=== PATIENT | female | born 1960 | race Caucasian/White ===

== ENCOUNTER → 2017-09-09 | Outpatient (CLI) | payer BC ==
--- NOTE | 2017-09-10 09:31 | MM ---
Reason for exam: screening (asymptomatic). Last mammogram was performed 2 years and 1 month ago. History: Patient is postmenopausal and is nulliparous. Benign right breast aspiration of the right breast, March 19, 2012. Benign right US cyst aspiration ea add of the right breast, September 10, 2006. Benign right US cyst aspiration of the right breast, September 10, 2006. Benign cyst aspiration of the right breast, 2001. Took hormonal contraceptives for 10 years. Physical Findings: A clinical breast exam by your physician is recommended on an annual basis and results should be correlated with mammographic findings. MG Screening Mammo w CAD Bilateral CC and MLO view(s) were taken. Prior study comparison: August 15, 2015, bilateral MG screening mammo w CAD. June 11, 2014, bilateral MG screening mammo w CAD. The breast tissue is heterogeneously dense. This may lower the sensitivity of mammography. There is chronic nodularity bilaterally. There is no dominant lesion. No significant changes when compared with prior studies. ASSESSMENT: Benign, BI-RAD 2 RECOMMENDATION: Routine screening mammogram of both breasts in 1 year.
== END | disposition home or self-care (01) ==
LOC: RADMAMWWP 07:53
PROVIDERS: ATTEND Family Medicine
DX: Z12.31 Encounter for screening mammogram for malignant neoplasm of breast (principal)
CPT/HCPCS: 77067

== ENCOUNTER → 2018-12-16 | Outpatient (CLI) | payer BC ==
--- NOTE | 2018-12-16 09:22 | CTL ---
EXAMINATION TYPE: CT Low Dose Lung DATE OF EXAM ORDERED: 12/16/2018 HISTORY: 58-year-old female Personal history of tobacco use/personal history of nicotine dependence. Lung cancer screening CT DLP: [address] CTDI: 1.70 mGy Automated exposure control for dose reduction was used. SCREENING VISIT: Baseline COMPARISON: None TECHNIQUE: Low dose computed tomography scan was performed through the chest at 1 mm thick sections a nd reconstructed images in the coronal and sagittal plane. CT DIAGNOSTIC QUALITY: Satisfactory FINDINGS: Heart normal size without pericardial effusion. Aorta normal caliber with conventional arch vessel branching anatomy. Nonenlarged paratracheal lymph nodes measure up to 8 mm. Mildly enlarged precarinal lymph node measur es 1.2 cm. Nonenlarged subcarinal lymph node measures 1.1 cm. Mild bronchial wall thickening and mild centrilobular emphysema. Biapical pleural-parenchymal scarrin g. An elongated 6 x 3 mm left mid lung pulmonary nodule is located along the major fissure, axial image 158. 3 mm subpleural pulmonary nodule lateral left lower lobe axial image 244. No consolidation or pleural effusion. Visualized upper abdomen shows no gross anomaly. Bones: No osseous destructive process. IMPRESSION: 1. BI-RADS 3 - probably benign; a 6 mm pulmonary nodule left mid lung, suspected lymph node along the major fissure. Additional 3 mm left lower lobe pulmonary nodule is presumed benign. 2. Mildly enlarged precarinal lymph node at 1.2 cm. 3. COPD with mild emphysema. RECOMMENDATION: 1. Six-month follow-up low-dose CT chest for reassessment of the probable 6 mm left midlung fissural lymph node. 2. The 6 month follow-up can also be utilized to ensure stability/resolution of the mildly enlarged p recarinal lymph node. 3. Smoking cessation. FOLLOW UP CT CHEST RECOMMENDATION: [address] LUNG RAD: Lung-Rad 3 Probably Benign
--- NOTE | 2018-12-16 13:55 | ECHOS ---
STRESS ECHOCARDIOGRAM INDICATIONS: Chest pain. MEDICATIONS: Levothyroxine, Celexa. BASELINE HEART RATE: 76 BASELINE BLOOD PRESSURE: 136/70 MAXIMUM HEART RATE: 151 MAXIMUM BLOOD PRESSURE: 160/54 85% MPHR: 139 100% MPHR: 164 METS: 9.7 MAXIMUM STAGE REACHED: 3 TOTAL EXERCISE TIME: 8:09 CLINICAL INFORMATION: Baseline EKG revealed normal sinus rhythm with inferolateral ST abnormality of a nonspecific type. Patient walked on standard Siva protocol for 8 minutes 9 seconds achieved a maximal heart rate of 151 beats per minute, developed fatigue and shortness of breath. There was a lot of artifact. She did not have any angina. There was no significant arrhythmia. EKG revealed more prominent inferolateral ST-segment depression without symptoms of angina, but these are considered inconclusive finding given the resting changes to begin with. By EKG criteria, this is an inconclusive stress test with fair exercise capacity. Resting EKG changes were noted making this an inconclusive stress test. Baseline echo images revealed normal wall motion wall thickening of all segments. At peak exercise, there was good augmentation of left ventricular wall motion, wall thickening of all segments suggesting that there is no evidence of stress-induced ischemia on this study. IMPRESSION: 1. Fair exercise capacity with inconclusive stress test by EKG criteria because of resting EKG changes. No symptoms of angina were reported and there was no arrhythmia. 2. Normal stress echocardiogram. MMODL / IJN: [id number] /
== END | disposition home or self-care (01) ==
LOC: RADCTMAIN 08:18
PROVIDERS: ATTEND Family Medicine
DX: Z12.2 Encounter for screening for malignant neoplasm of respiratory organs (principal); R07.9 Chest pain, unspecified; J43.9 Emphysema, unspecified; Z87.891 Personal history of nicotine dependence
CPT/HCPCS: 93351; G0297

== ENCOUNTER → 2018-12-16 | Outpatient (CLI) | payer BC | END | disposition home or self-care (01) | LOC: RADCTMAIN 08:08 | PROVIDERS: ATTEND Family Medicine | DX: Z53.9 Procedure and treatment not carried out, unspecified reason (principal) ==

== ENCOUNTER → 2018-12-18 | Outpatient (CLI) | payer BC ==
--- NOTE | 2018-12-19 12:22 | MM ---
Reason for exam: screening (asymptomatic). Last mammogram was performed 1 year and 3 months ago. History: Patient is postmenopausal and is nulliparous. Benign right breast aspiration of the right breast, March 19, 2012. Benign right US cyst aspiration ea add of the right breast, September 10, 2006. Benign right US cyst aspiration of the right breast, September 10, 2006. Benign cyst aspiration of the right breast, 2001. Took hormonal contraceptives for 10 years. Physical Findings: A clinical breast exam by your physician is recommended on an annual basis and results should be correlated with mammographic findings. MG Screening Mammo w CAD Bilateral CC and MLO view(s) were taken. Prior study comparison: September 09, 2017, bilateral MG screening mammo w CAD. August 15, 2015, bilateral MG screening mammo w CAD. The breast tissue is heterogeneously dense. This may lower the sensitivity of mammography. Focal asymmetry upper outer left breast anteror third position. This finding is changed when compared with previous exams. ASSESSMENT: Incomplete: need additional imaging evaluation, BI-RAD 0 RECOMMENDATION: Special view mammogram of the left breast. If lesion persists on supplemental views, image directed ultrasound is recommended. [facility] will attempt to contact patient to return for supplemental views and ultrasound if indicated.
== END | disposition home or self-care (01) ==
LOC: RADMAMWWP 07:06
PROVIDERS: ATTEND Family Medicine
DX: Z12.31 Encounter for screening mammogram for malignant neoplasm of breast (principal); R92.8 Other abnormal and inconclusive findings on diagnostic imaging of breast
CPT/HCPCS: 77067

== ENCOUNTER → 2018-12-26 | Outpatient (CLI) | payer BC ==
--- NOTE | 2018-12-26 08:28 | MM ---
Reason for exam: additional evaluation requested from abnormal screening. Last mammogram was performed less than 1 month ago. History: Patient is postmenopausal and is nulliparous. Benign right breast aspiration of the right breast, March 19, 2012. Benign right US cyst aspiration ea add of the right breast, September 10, 2006. Benign right US cyst aspiration of the right breast, September 10, 2006. Benign cyst aspiration of the right breast, 2001. Took hormonal contraceptives for 10 years. Physical Findings: Nurse did not find any significant physical abnormalities on exam. MG Work Up Mamm w CAD LT Spot compression CC, spot compression MLO, and ML view(s) were taken of the left breast. Prior study comparison: December 18, 2018, bilateral MG screening mammo w CAD. September 09, 2017, bilateral MG screening mammo w CAD. The breast tissue is heterogeneously dense. This may lower the sensitivity of mammography. There is no discrete abnormality including area of concern. These results were verbally communicated with the patient and result sheet given to the patient on 12/26/18. ASSESSMENT: Negative, BI-RAD 1 RECOMMENDATION: Return to routine screening mammogram schedule for both breasts.
== END | disposition home or self-care (01) ==
LOC: RADMAMWWP 07:23
PROVIDERS: ATTEND Family Medicine
DX: R92.8 Other abnormal and inconclusive findings on diagnostic imaging of breast (principal)
CPT/HCPCS: 77065

== ENCOUNTER → 2019-06-18 | Outpatient (CLI) | payer BC ==
--- NOTE | 2019-06-18 15:53 | CTL ---
EXAMINATION TYPE: CT Low Dose Lung DATE OF EXAM ORDERED: 06/18/2019 HISTORY: Personal history tobacco use. Lung cancer screening CT DLP: 50.[address] CTDI: 1.5 mGy Automated exposure control for dose reduction was used. SCREENING VISIT: Follow-up COMPARISON: 12/16/2018 TECHNIQUE: Low dose computed tomography scan was performed through the chest at 1 mm thick sections a nd reconstructed images in the coronal plane at [address] DIAGNOSTIC QUALITY: Satisfactory FINDINGS: LUNG NODULES: Present, detailed below: There is a 0.4 cm pleural-based nodule in the lateral left lung base. Series 4 image 222. This is sta ble from comparison. There is thickening to the bilateral lung apices which was present previously and appears stable. LUNGS: COPD: Severity: None Fibrosis: Severity: None Lymph nodes: None Other findings: None RIGHT PLEURAL SPACE: Effusion: None Calcification: None Thickening: None Pneumothorax: None LEFT PLEURAL SPACE: Effusion: None Calcification: None Thickening: None Pneumothorax: None HEART: Heart Size: Normal Coronary calcification: None Pericardial effusion: None There is an enlarged lymph node measuring 1.2 cm in the pretracheal space at the level of the benitez. OTHER FINDINGS: Upper abdomen: Normal Bony thorax: Normal Supraclavicular region: Normal Other: Ascending thoracic aorta at the level the main pulmonary artery measures 3.5 cm. The main pul monary artery at the bifurcation measures 2.7 cm. IMPRESSION: 1. No suspicious acute lung masses. 2. Enlarged pretracheal lymph node present previously and stable FOLLOW UP CT CHEST RECOMMENDATION: Follow up screening CT chest per screening protocol CT LUNG RAD: 1
== END | disposition home or self-care (01) ==
LOC: RADCTMAIN 11:08
PROVIDERS: ATTEND Family Medicine
DX: R59.9 Enlarged lymph nodes, unspecified (principal); Z87.891 Personal history of nicotine dependence

== ENCOUNTER 2020-03-11 12:35 | Day surgery (SDC) | payer BC ==
[2020-03-10 10:16] VITALS: BMI 20.2
[~2020-03-11 12:35] MED LIST: LIDOCAINE 1% (10MG/ML) FOR IV START INTRADERMA PRN
[2020-03-11 13:16] VITALS: RESP 16; TEMP 98.9
[2020-03-11] MEDS: LACTATED RINGERS 1,000 ML IV SCH ×2 (13:26→13:43)
[2020-03-11] MEDS ORDERED: LIDOCAINE 1% INJ 10MG/ML (20 ML MDV) ONE (13:45)
[2020-03-11] MEDS ORDERED: PROPOFOL 10 MG/ML 20 ML VIAL IV ONE (13:45)
--- NOTE | 2020-03-11 13:59 | P.PCN ---
Date of Procedure: 03/11/20 Procedure(s) Performed: BRIEF HISTORY: Patient is a 60-year-old white female scheduled for an upper endoscopy as a part of evaluation of intermittent dysphagia for the last 4 weeks' duration. She was started on Prilosec 20 mg daily with no relief in her symptoms. PROCEDURE PERFORMED: Esophagogastroduodenoscopy with biopsy. PREOPERATIVE DIAGNOSIS: Atypical chest pain of 4 weeks' duration. IV sedation per anesthesia. PROCEDURE: After informed consent was obtained, the patient was brought into the endoscopy unit. IV sedation was administered by Anesthesia under continuous monitoring. Initially the Olympus GIF-140 video endoscope was inserted into the mouth. Esophagus intubated without any difficulty. It was gradually advanced into the stomach and duodenum and carefully examined. The bulb and the second part of the duodenum appeared normal. The scope at this time was withdrawn to the stomach, adequately insufflated with air, and upon careful examination, mucosa of the antrum had mild patchy areas of erythema and biopsies were done from this area. The body, cardia and the fundus appeared normal. The scope was then withdrawn into the esophagus. The GE junction was located at 39 cm from the incisors. The esophagus appeared normal. There were no erosions or ulcerations seen, biopsies were done from the distal esophagus and the patient tolerated the procedure well. IMPRESSION: 1. Mild antral gastritis. 2. Normal-appearing esophagus with no evidence of esophagitis. RECOMMENDATIONS: The findings of this examination were discussed with the patient as well as a family. She was advised to follow up the biopsy results. in the meantime I suggested that she increase omeprazole to 20 mg twice daily for 8 weeks. If she still has persistent symptoms she can follow up in office for further evaluation.
[2020-03-11 14:27] VITALS: BP 135/82; PULSE 85
== END 2020-03-11 14:34 | disposition home or self-care (01) ==
LOC: ORWHC2ENDO 12:35
PROVIDERS: ATTEND Internal Medicine Gastroenterology
DX: K29.50 Unspecified chronic gastritis without bleeding (principal); K21.9 Gastro-esophageal reflux disease without esophagitis; J45.909 Unspecified asthma, uncomplicated; F17.210 Nicotine dependence, cigarettes, uncomplicated; Z88.5 Allergy status to narcotic agent; Z88.1 Allergy status to other antibiotic agents; Z79.890 Hormone replacement therapy; Z79.899 Other long term (current) drug therapy
CPT/HCPCS: 88305; 43239; J2001; J2704

== ENCOUNTER 2020-03-31 11:42 | Observation (INO) | payer BC ==
[2020-03-31] MEDS ORDERED: SODIUM CHLORIDE 0.9% 1,000 ML IV STA ×2 (12:02)
[2020-03-31] MEDS ORDERED: ONDANSETRON 4 MG/2 ML VIAL IVP STA (12:02)
[2020-03-31] MEDS ORDERED: PANTOPRAZOLE 40 MG/10 ML VIAL IVP STA (12:03)
--- NOTE | 2020-03-31 12:17 | ED ---
General Adult HPI - General Chief complaint: Nausea/Vomiting/Diarrhea Stated complaint: NAUSEA Time Seen by Provider: 03/31/20 11:52 Source: patient, RN notes reviewed, old records reviewed Mode of arrival: ambulatory Limitations: no limitations - History of Present Illness Initial comments: Patient is a 52-year-old female who presents for intermittent today with greater than 3 months of nausea vomiting epigastric abdominal pain. Patient reports that she is seen by GI doctor and was told she had some mild gastritis is placed on Protonix. She states she has persistent nausea. She states that the continued pain she followed up with GI and had an MRI this week of her abdomen which is indeterminate. She states that she has mainly epigastric pain with radiation towards her back. She states that sometimes it causes excess mucus and phlegm when she vomits. She denies any shortness of breath. She states that she's had no fevers or chills during this time. She reports that she is scheduled for upcoming HIDA scan. - Related Data Home Medications Medication Instructions Recorded Confirmed Citalopram Hydrobromide 20 mg PO DAILY 07/01/14 03/31/20 [Citalopram HBr] Levothyroxine Sodium [Synthroid] 112 mcg PO DAILY 07/01/14 03/31/20 Albuterol Sulfate [Albuterol 2 puff PO Q6H PRN 03/10/20 03/31/20 Sulfate Hfa] Omeprazole 20 mg PO DAILY 03/10/20 03/31/20 Allergies Allergy/AdvReac Type Severity Reaction Status Date / Time codeine AdvReac MIGRAINES Verified 03/31/20 13:51 erythromycin base AdvReac Nausea & Verified 03/31/20 13:51 [Erythromycin Base] Vomiting, ABD. PAIN Review of Systems ROS Statement: Those systems with pertinent positive or pertinent negative responses have been documented in the HPI. ROS Other: All systems not noted in ROS Statement are negative. Past Medical History Past Medical History: Asthma, GERD/Reflux, Thyroid Disorder Additional Past Medical History / Comment(s): EPIGASTRIC PAIN History of Any Multi-Drug Resistant Organisms: None Reported Past Surgical History: Tonsillectomy Additional Past Surgical History / Comment(s): VOCAL CORD NODULE REMOVED. COLONOSCOPY. BILAT CATARACT REMOVAL WITH LENS IMPLANT Past Anesthesia/Blood Transfusion Reactions: No Reported Reaction Past Psychological History: Depression Smoking Status: Current every day smoker Past Alcohol Use History: Occasional Past Drug Use History: None Reported - Past Family History Mother Family Medical History: Cancer Brother(s) Family Medical History: Cancer General Exam - General Exam Comments Initial Comments: 60-year-old female. No significant distress. Limitations: no limitations General appearance: alert, in no apparent distress Head exam: Present: atraumatic, normocephalic, normal inspection Eye exam: Present: normal appearance, PERRL, EOMI. Absent: scleral icterus, conjunctival injection, periorbital swelling ENT exam: Present: normal exam, mucous membranes moist Neck exam: Present: normal inspection. Absent: tenderness, meningismus, lymphadenopathy Respiratory exam: Present: normal lung sounds bilaterally. Absent: respiratory distress, wheezes, rales, rhonchi, stridor Cardiovascular Exam: Present: regular rate, normal rhythm, normal heart sounds. Absent: systolic murmur, diastolic murmur, rubs, gallop, clicks GI/Abdominal exam: Present: soft, tenderness (RUQ tendernes), normal bowel sounds. Absent: distended, guarding, rebound, rigid Extremities exam: Present: normal inspection, full ROM, normal capillary refill. Absent: tenderness, pedal edema, joint swelling, calf tenderness Back exam: Present: normal inspection Neurological exam: Present: alert, oriented X3, CN II-XII intact Psychiatric exam: Present: normal affect, normal mood Skin exam: Present: warm, dry, intact, normal color. Absent: rash Course Vital Signs 03/31/20 03/31/20 03/31/20 11:47 11:50 12:50 Temperature 98.3 F Pulse Rate 104 H 83 Respiratory 20 18 18 Rate Blood Pressure 119/79 133/75 O2 Sat by Pulse 99 98 Oximetry 03/31/20 13:50 Temperature Pulse Rate 83 Respiratory 18 Rate Blood Pressure 129/71 O2 Sat by Pulse 98 Oximetry Medical Decision Making - Medical Decision Making 52-year-old female presents returns today with weeks of nausea and vomiting. He complains of upper abdominal and right upper quadrant abdominal pain. She's been evaluated extensively with GI doctor did have an MRI of her abdomen. She reports there was some abnormalities on the gallbladder which may be causing a dilated common bile duct. Patient was given IV fluids labwork obtained today. She just appears generally weak. On exam she did have some mild right-sided tenderness. Labs reviewed to the relatively unremarkable. Ultrasound today shows evidence of a dilated common bile duct but no evidence of obstructing stones. No signs of acute cholecystitis. On previous MRI at [facility] suggested follow-up with MRCP or ERCP. She states she's not had this done at this time. I did offer the Patient to be discharged home without medica tion or possible admission. States she doesn't feel well to be discharged home and preferred to have further answers at this time. Discussed the case with Dr. Morales discussed case with Dr. Barry has not. Patient was admitted with consult to GI for possible ERCP for further testing on this dilated common bile duct. - Lab Data Result diagrams: 03/31/20 12:15 03/31/20 12:15 Lab Results 03/31/20 03/31/20 03/31/20 Range/Units 12:15 12:15 12:15 WBC 7.4 (3.8-10.6) k/uL RBC 4.65 (3.80-5.40) m/uL Hgb 13.3 (11.4-16.0) gm/dL Hct 41.2 (34.0-46.0) % MCV 88.5 (80.0-100.0) fL MCH 28.6 (25.0-35.0) pg MCHC 32.3 (31.0-37.0) g/dL RDW 12.3 (11.5-15.5) % Plt Count 323 (150-450) k/uL Neutrophils % 70 % Lymphocytes % 21 % Monocytes % 4 % Eosinophils % 1 % Basophils % 1 % Neutrophils # 5.2 (1.3-7.7) k/uL Lymphocytes # 1.5 (1.0-4.8) k/uL Monocytes # 0.3 (0-1.0) k/uL Eosinophils # 0.1 (0-0.7) k/uL Basophils # 0.1 (0-0.2) k/uL Sodium 133 L (137-145) mmol/L Potassium 4.7 (3.5-5.1) mmol/L Chloride 96 L (98-107) mmol/L Carbon Dioxide 27 (22-30) mmol/L Anion Gap 10 mmol/L BUN 13 (7-17) mg/dL Creatinine 0.62 (0.52-1.04) mg/dL Est GFR (CKD-EPI)AfAm >90 (>60 ml/min/1.73 sqM) Est GFR (CKD-EPI)NonAf >90 (>60 ml/min/1.73 sqM) Glucose 99 (74-99) mg/dL Plasma Lactic Acid Robert 1.3 (0.7-2.0) mmol/L Calcium 10.2 (8.4-10.2) mg/dL Magnesium 1.9 (1.6-2.3) mg/dL Total Bilirubin 0.8 (0.2-1.3) mg/dL AST 36 (14-36) U/L ALT 13 (4-34) U/L Alkaline Phosphatase 82 (38-126) U/L Total Protein 8.0 (6.3-8.2) g/dL Albumin 4.5 (3.5-5.0) g/dL Amylase 65 (30-110) U/L Lipase 115 (23-300) U/L Urine Color Urine Appearance (Clear) Urine pH (5.0-8.0) Ur Specific Crete (1.001-1.035) Urine Protein (Negative) Urine Glucose (UA) (Negative) Urine Ketones (Negative) Urine Blood (Negative) Urine Nitrite (Negative) Urine Bilirubin (Negative) Urine Urobilinogen (<2.0) mg/dL Ur Leukocyte Esterase (Negative) Urine RBC (0-5) /hpf Urine WBC (0-5) /hpf Ur Squamous Epith Cells (0-4) /hpf Urine Bacteria (None) /hpf Hyaline Casts (0-2) /lpf Urine Mucus (None) /hpf 03/31/20 Range/Units 12:28 WBC (3.8-10.6) k/uL RBC (3.80-5.40) m/uL Hgb (11.4-16.0) gm/dL Hct (34.0-46.0) % MCV (80.0-100.0) fL MCH (25.0-35.0) pg MCHC (31.0-37.0) g/dL RDW (11.5-15.5) % Plt Count (150-450) k/uL Neutrophils % % Lymphocytes % % Monocytes % % Eosinophils % % Basophils % % Neutrophils # (1.3-7.7) k/uL Lymphocytes # (1.0-4.8) k/uL Monocytes # (0-1.0) k/uL Eosinophils # (0-0.7) k/uL Basophils # (0-0.2) k/uL Sodium (137-145) mmol/L Potassium (3.5-5.1) mmol/L Chloride (98-107) mmol/L Carbon Dioxide (22-30) mmol/L Anion Gap mmol/L BUN (7-17) mg/dL Creatinine (0.52-1.04) mg/dL Est GFR (CKD-EPI)AfAm (>60 ml/min/1.73 sqM) Est GFR (CKD-EPI)NonAf (>60 ml/min/1.73 sqM) Glucose (74-99) mg/dL Plasma Lactic Acid Robert (0.7-2.0) mmol/L Calcium (8.4-10.2) mg/dL Magnesium (1.6-2.3) mg/dL Total Bilirubin (0.2-1.3) mg/dL AST (14-36) U/L ALT (4-34) U/L Alkaline Phosphatase (38-126) U/L Total Protein (6.3-8.2) g/dL Albumin (3.5-5.0) g/dL Amylase (30-110) U/L Lipase (23-300) U/L Urine Color Yellow Urine Appearance Cloudy H (Clear) Urine pH 6.0 (5.0-8.0) Ur Specific Crete 1.018 (1.001-1.035) Urine Protein Trace H (Negative) Urine Glucose (UA) Negative (Negative) Urine Ketones Negative (Negative) Urine Blood Negative (Negative) Urine Nitrite Negative (Negative) Urine Bilirubin Negative (Negative) Urine Urobilinogen <2.0 (<2.0) mg/dL Ur Leukocyte Esterase Negative (Negative) Urine RBC 1 (0-5) /hpf Urine WBC 2 (0-5) /hpf Ur Squamous Epith Cells 5 H (0-4) /hpf Urine Bacteria Rare H (None) /hpf Hyaline Casts 43 H (0-2) /lpf Urine Mucus Many H (None) /hpf - Radiology Data Radiology results: report reviewed Ultrasound shows no shadowing mobile gallstones or ultrasound evidence for acute cholecystitis. There is no significant intrahepatic biliary dilation. Disposition Clinical Impression: Nausea & vomiting, Dilated cbd, acquired Disposition: ADMITTED IP TO THIS HOSP Condition: Stable Is patient prescribed a controlled substance at d/c from ED?: No Referrals: Malgorzata Mcmahan DO [Primary Care Provider] - 1-2 days Time of Disposition: 14:29
[2020-03-31 12:35] LABS: Basophils # (A) 0.1 k/uL (0-0.2); Basophils % (A) 1 %; Eosinophils # (A) 0.1 k/uL (0-0.7); Eosinophils % (A) 1 %; HCT 41.2 % (34.0-46.0); HGB 13.3 gm/dL (11.4-16.0); Lymphocytes # (A) 1.5 k/uL (1.0-4.8); Lymphocytes % (A) 21 %; MCH 28.6 pg (25.0-35.0); MCHC 32.3 g/dL (31.0-37.0); MCV 88.5 fL (80.0-100.0); Mean Platelet Volume 7.8; Monocytes # (A) 0.3 k/uL (0-1.0); Monocytes % (A) 4 %; Neutrophils # (A) 5.2 k/uL (1.3-7.7); Neutrophils % (A) 70 %; Platelet Count 323 k/uL (150-450); RBC 4.65 m/uL (3.80-5.40); RDW 12.3 % (11.5-15.5); WBC 7.4 k/uL (3.8-10.6)
[2020-03-31 12:45] LABS: ALT 13 U/L (4-34); AST 36 U/L (14-36); African American GFR (CKD) >90 (>60 ml/min/1.73 sqM); Albumin 4.5 g/dL (3.5-5.0); Alkaline Phosphatase 82 U/L (38-126); Amylase 65 U/L (30-110); Anion Gap 10 mmol/L; Blood Urea Nitrogen 13 mg/dL (7-17); Calcium 10.2 mg/dL (8.4-10.2); Carbon Dioxide 27 mmol/L (22-30); Chloride 96 mmol/L (98-107); Glucose 99 mg/dL (74-99); Lipase 115 U/L (23-300); Magnesium 1.9 mg/dL (1.6-2.3); Non-African American GFR(CKD) >90 (>60 ml/min/1.73 sqM); Potassium 4.7 mmol/L (3.5-5.1); Sodium 133 mmol/L (137-145); Total Bilirubin 0.8 mg/dL (0.2-1.3)
[2020-03-31 12:49] LABS: Appearance,Urine Cloudy (Clear); Bacteria,Urine Rare /hpf; Bilirubin,Urine Negative (Negative); Blood,Urine Negative (Negative); Color,Urine Yellow; Glucose,Urine (UA) Negative (Negative); Hyaline Casts,Urine 43 /lpf (0-2); Ketones,Urine Negative (Negative); Leukocyte Esterase,Urine Negative (Negative); Mucus,Urine Many /hpf; Nitrite,Urine Negative (Negative); Protein,Urine Trace (Negative); RBC,Urine 1 /hpf (0-5); Specific Gravity,Urine 1.018 (1.001-1.035); Squamous Epithelial Cell,Urine 5 /hpf (0-4); Urobilinogen,Urine <2.0 mg/dL (<2.0); WBC,Urine 2 /hpf (0-5)
--- NOTE | 2020-03-31 13:27 | US ---
EXAMINATION TYPE: US gallbladder DATE OF EXAM: 03/31/2020 COMPARISON: NONE CLINICAL HISTORY: epigastric, rUQ pain. Pain, N&V EXAM MEASUREMENTS: Liver Length: 17.4 cm Gallbladder Wall: 0.2 cm CBD: 0.9 cm Right Kidney: 10.5 x 4.8 x 3.9 cm Pancreas: wnl Liver: wnl Gallbladder: Slightly contracted, adenomyomatosis anterior wall Evidence for sonographic Velasco's sign: No CBD: Dilated Right Kidney: wnl Focus of hyper cholesterolosis with ringdown artifact. No intraluminal gallstones. Mild extra hepatic biliary dilatation. No significant intrahepatic biliary dilatation. Slightly heterogeneous liver. IMPRESSION: No shadowing mobile gallstones or ultrasound evidence for acute cholecystitis.
[2020-03-31] MEDS ORDERED: IBUPROFEN 400 MG TAB PO PRN (14:29)
[2020-03-31] MEDS ORDERED: ONDANSETRON 4 MG/2 ML VIAL IVP PRN (14:29)
[2020-03-31] MEDS ORDERED: KETOROLAC 30 MG/ML 1 ML VIAL IVP PRN (14:29)
[2020-03-31] MEDS ORDERED: NALOXONE 0.4 MG/ML 1 ML VIAL IV PRN (14:29)
[2020-03-31] MEDS ORDERED: MORPHINE SULFATE 4 MG/ML SYRINGE IV PRN (14:29)
[2020-03-31] MEDS: SODIUM CHLORIDE 0.9% 1,000 ML IV SCH ×2 (15:01→23:41)
--- NOTE | 2020-03-31 16:00 | P.HPIM ---
History of Present Illness 52-year-old female who presents for intermittent today with greater than 3 months of nausea vomiting epigastric abdominal pain. Patient reports that she is seen by GI doctor and was told she had some mild gastritis is placed on Prot kassi. She states she has persistent nausea. She states that the continued pain she followed up with GI and had an MRI this week of her abdomen which is indeterminate. She states that she has mainly epigastric pain with radiation towards her back. She states that sometimes it causes excess mucus and phlegm when she vomits. She denies any shortness of breath. She states that she's had no fevers or chills during this time. patient does have history of hiatal hernia. Patient had an ultrasound of the abdomen did which did not show gallstones or cholelithiasis. Patient was a valid by gastroenterology and they ordered a HIDA Scan.and did lose significant weight since last 3 weeks because of nausea vomiting and able to tolerate Review of Systems REVIEW OF SYSTEMS: CONSTITUTIONAL: No fever, no malaise, no fatigue. HEENT: No recent visual problems or hearing problems. Denied any sore throat. CARDIOVASCULAR: No chest pain, orthopnea, PND, no palpitations, no syncope. PULMONARY: No shortness of breath, no cough, no hemoptysis. GASTROINTESTINAL: as mentioned in HPI NEUROLOGICAL: No headaches, no weakness, no numbness. HEMATOLOGICAL: Denies any bleeding or petechiae. GENITOURINARY: Denies any burning micturition, frequency, or urgency. MUSCULOSKELETAL/RHEUMATOLOGICAL: Denies any joint pain, swelling, or any muscle pain. ENDOCRINE: Denies any polyuria or polydipsia. The rest of the 14-point review of systems is negative. Past Medical History Past Medical History: Asthma, GERD/Reflux, Thyroid Disorder Additional Past Medical History / Comment(s): EPIGASTRIC PAIN History of Any Multi-Drug Resistant Organisms: None Reported Past Surgical History: Tonsillectomy Additional Past Surgical History / Comment(s): VOCAL CORD NODULE REMOVED. COLONOSCOPY. BILAT CATARACT REMOVAL WITH LENS IMPLANT Past Anesthesia/Blood Transfusion Reactions: No Reported Reaction Past Psychological History: Depression Smoking Status: Current every day smoker Past Alcohol Use History: Occasional Additional Past Alcohol Use History / Comment(s): < 1PPD SINCE AGE 20-TRYING TO QUIT Past Drug Use History: None Reported - Past Family History Mother Family Medical History: Cancer Brother(s) Family Medical History: Cancer Medications and Allergies Home Medications Medication Instructions Recorded Confirmed Type Citalopram Hydrobromide 20 mg PO DAILY 07/01/14 03/31/20 History [Citalopram HBr] Levothyroxine Sodium [Synthroid] 112 mcg PO DAILY 07/01/14 03/31/20 History Albuterol Sulfate [Albuterol 2 puff PO Q6H PRN 03/10/20 03/31/20 History Sulfate Hfa] Omeprazole 20 mg PO DAILY 03/10/20 03/31/20 History Allergies Allergy/AdvReac Type Severity Reaction Status Date / Time codeine AdvReac MIGRAINES Verified 03/31/20 13:51 erythromycin base AdvReac Nausea & Verified 03/31/20 13:51 [Erythromycin Base] Vomiting, ABD. PAIN Physical Exam Vitals: Vital Signs Temp Pulse Pulse Resp BP BP Pulse Ox 03/31/20 14:44 98.4 F 82 16 138/82 98 03/31/20 14:41 97.7 F 86 12 136/82 98 03/31/20 13:50 83 18 129/71 98 03/31/20 12:50 83 18 133/75 98 03/31/20 11:50 18 03/31/20 11:47 98.3 F 104 H 20 119/79 99 Intake and Output 03/31/20 03/31/20 03/31/20 06:59 14:59 22:59 Other: Voiding Method Toilet Weight 54.431 kg PHYSICAL EXAMINATION: GENERAL: The patient is alert and oriented x3, not in any acute distress. Well developed, well nourished. HEENT: Pupils are round and equally reacting to light. EOMI. No scleral icterus. No conjunctival pallor. Normocephalic, atraumatic. No pharyngeal erythema. No thyromegaly. CARDIOVASCULAR: S1 and S2 present. No murmurs, rubs, or gallops. PULMONARY: Chest is clear to auscultation, no wheezing or crackles. ABDOMEN: Soft, nontender, nondistended, normoactive bowel sounds. No palpable organomegaly. MUSCULOSKELETAL: No joint swelling or deformity. EXTREMITIES: No cyanosis, clubbing, or pedal edema. NEUROLOGICAL: Gross neurological examination did not reveal any focal deficits. SKIN: No rashes. Results CBC & Chem 7: 08/06/20 12:15 03/31/20 12:15 Labs: Abnormal Lab Results - Last 24 Hours (Table) 03/31/20 03/31/20 Range/Units 12:15 12:28 Sodium 133 L (137-145) mmol/L Chloride 96 L (98-107) mmol/L Urine Appearance Cloudy H (Clear) Urine Protein Trace H (Negative) Ur Squamous Epith Cells 5 H (0-4) /hpf Urine Bacteria Rare H (None) /hpf Hyaline Casts 43 H (0-2) /lpf Urine Mucus Many H (None) /hpf Thrombosis Risk Factor Assmnt - Choose All That Apply Each Factor Represents 1 point: Age 41-60 years Thrombosis Risk Factor Assessment Total Risk Factor Score: 1 Thrombosis Risk Factor Assessment Level: Low Risk Assessment and Plan Plan: -abdominal pain, nausea vomiting: It appears to be gastritis patient is already on Protonix at home patient Protonix will be changed to twice a day and the simethicone will be added we will rule out any gallbladder disease with a HIDA scan gastroenterology evaluated the patient.patient had is having these issues as an outpatient and patient underwentextensive evaluation by gastro-oncology as an outpatient as well. Patient is having these symptoms since early January -asthma without any acute exacerbation patient does smoke nicotine cessation counseling was provided. Patient is trying to completely cut down smoking -Gases patient reflux disease -Hypothyroidism
[2020-03-31] MEDS: ACETAMINOPHEN TAB 325 MG TAB PO PRN ×2 (16:28→21:42)
[2020-03-31] MEDS: SIMETHICONE 40 MG/0.6 ML DROPS 2,000 MG/30 ML BOTTLE PO SCH ×2 (17:06→21:43)
--- NOTE | 2020-03-31 21:43 | CONS ---
CONSULTATION DATE OF SERVICE: March 31, 2020. REQUESTING PHYSICIAN: Dr. Mcmahan. REASON FOR CONSULTATION: Epigastric pain, nausea and vomiting of 3 months duration. HISTORY OF PRESENT ILLNESS: The patient is a 60-year-old pleasant white female who was admitted to the hospital because of persistent epigastric pain associated with nausea, vomiting for the last 3 months' duration. She was seen in our office by my PA Lily Robertson. She had an upper endoscopy done 3 weeks ago that showed mild gastritis and small hiatal hernia. Biopsies showed reflux esophagitis. She was treated with Prilosec on outpatient basis with some improvement in the epigastric pain, but she continues to have persistent nausea, vomiting, and hence came to the emergency room and admitted for further evaluation. She was scheduled for an MRI of the abdomen 2 days ago at [facility], results of which are not available at the time of this dictation. She thinks she lost about 15 pounds since the onset of these symptoms. She reports any significant change in her bowel habits. She did have ultrasound of the gallbladder done that was unremarkable. PAST MEDICAL HISTORY: Significant for GERD, hypothyroidism, anxiety, depression, and asthma. MEDICATIONS: At home, omeprazole, Synthroid, citalopram, and albuterol. ALLERGIES: CODEINE and ERYTHROMYCIN. PAST SURGICAL HISTORY: Recent upper endoscopy 3 weeks ago, tonsillectomy, bilateral cataract surgery. Nuchal cord nodule removed. SOCIAL HISTORY: Chronic smoker. No alcohol use. FAMILY HISTORY: Mother had some kind of cancer. Brother also had some cancer. REVIEW OF SYSTEMS: CARDIOPULMONARY: No chest pain, shortness of breath. : No dysuria or hematuria. MUSCULOSKELETAL unremarkable. SKIN unremarkable. PSYCHIATRIC: Anxiety and depression. NEUROLOGY unremarkable. ENDOCRINE hypothyroidism. CONSTITUTIONAL: Weight loss of 15 pounds. No fever, chills, night sweats. HEMATOLOGY: Unremarkable. PHYSICAL EXAMINATION: She appears comfortable. No apparent distress. Vital signs stable. Blood pressure is 138/82, pulse rate 86, temperature 97.7. HEENT examination unremarkable. Conjunctivae pink. Sclerae anicteric. Oral cavity no lesions. NECK: No JVD or lymph node enlargement. CHEST was clear to auscultation. HEART: Regular rate and rhythm. ABDOMEN: Soft. There was tenderness in the epigastric area. Bowel sounds are positive. No organomegaly. EXTREMITIES: No pedal edema. SKIN no rashes. NEUROLOGIC: Alert and oriented x3. No focal deficits. LABS: From today WBC 7.4, hemoglobin 15.5, platelets normal. Basic metabolic panel is within normal limits. BUN and creatinine are 30 and 0.8. AST, ALT, T-bilirubin, alk phos are normal. Amylase and lipase are normal. Urinalysis was unremarkable. Ultrasound of the gallbladder showed no evidence of gallstones or biliary ductal dilation. IMPRESSION: This is a patient who presents to the hospital with persistent epigastric pain associated with nausea, vomiting for the last 3 months duration. She lost 15 pounds since the onset of these symptoms. Recent upper endoscopy 3 weeks ago showed small hiatal hernia and mild antral gastritis. The patient has been on Prilosec 20 mg twice daily for the last several weeks with improvement in epigastric pain, but continues to have persistent nausea, vomiting. MRI of the abdomen was done at [facility] 2 days ago, results of which are still pending at the time of this dictation. RECOMMENDATIONS: 1. Continue with Protonix 40 mg twice daily. 2. Antiemetics as needed. 3. Start on clear liquid diet. 4. We will obtain records from [facility]. 5. Schedule the patient for HIDA scan to rule out gallbladder dyskinesia. 6. We will follow with you closely. Thank you for this consultation. MMODL / IJN: [id number] /
[2020-03-31] MEDS: PANTOPRAZOLE 40 MG/10 ML VIAL IV SCH (21:58)
[2020-04-01 05:11] VITALS: PULSE 78; TEMP 98.3
[2020-04-01] MEDS: SODIUM CHLORIDE 0.9% 1,000 ML IV SCH (08:20)
[2020-04-01] MEDS: PANTOPRAZOLE 40 MG/10 ML VIAL IV SCH (08:20)
[2020-04-01] MEDS ORDERED: PANTOPRAZOLE 40 MG/10 ML VIAL IV SCH (09:00)
[2020-04-01 10:13] VITALS: BP 117/68; RESP 16
[2020-04-01] MEDS: SIMETHICONE 40 MG/0.6 ML DROPS 2,000 MG/30 ML BOTTLE PO SCH (10:15)
--- NOTE | 2020-04-01 11:19 | NM ---
EXAMINATION TYPE: NM hepatobiliary w CCK DATE OF EXAM: 04/01/2020 COMPARISON: Gallbladder ultrasound from yesterday. HISTORY: Abdominal pain with nausea and vomiting. TECHNIQUE: After the intravenous administration of 4.18 mCi Tc 99m Mebrofenin hepatobiliary scintigra phy is performed. Immediate images post injection. FINDINGS: There is satisfactory initial accumulation of tracer by the liver. The gallbladder is visualized wit hin 45 minutes. The small bowel activity is noted within 60 minutes. At one hour CCK was administer ed, patient was injected with 1.1 mcg of Kinevac, and gallbladder ejection fraction is calculated at 58 %, in the normal range. Therefore there is no scintigraphic evidence of cystic or common bile destinee t obstruction to suggest acute cholecystitis or gallbladder dyskinesia. IMPRESSION: Exam is within normal limits.
--- NOTE | 2020-04-01 12:50 | P.DS ---
Providers Date of admission: 03/31/20 14:13 Attending physician: Mesfin Nugent Consults: 03/31/20 14:29 Consult Physician Stat Consulting Provider: Rufina Reddy Consult Reason/Comments: dilated CBD, nausea vomiting Do you want consulting provider notified?: Yes Primary care physician: Malgorzata [facility] Course: 52-year-old female who presents for intermittent today with greater than 3 months of nausea vomiting epigastric abdominal pain. Patient reports that she is seen by GI doctor and was told she had some mild gastritis is placed on Protonix. She states she has persistent nausea. She states that the continued pain she followed up with GI and had an MRI this week of her abdomen which is indeterminate. She states that she has mainly epigastric pain with radiation towards her back. She states that sometimes it causes excess mucus and phlegm when she vomits. She denies any shortness of breath. She states that she's had no fevers or chills during this time. patient does have history of hiatal hernia. Patient had an ultrasound of the abdomen did which did not show gallstones or cholelithiasis. Patient was a valid by gastroenterology and they ordered a HIDA Scan.and did lose significant weight since last 3 weeks because of nausea vomiting and able to tolerate. 04/01/2020 Patient had a HIDA scan which did not show any significant abnormality patient will be started tonight if she is able to tolerate diet patient will be discharged and will switch her proton pulmonary with her to Protonix 40 twice a day along with simethicone, Zofran for nausea if she continues to have the symptoms in spite of all these measures then patient will need a surgical referral and Nissin's fundoplication for her hiatal hernia. PHYSICAL EXAMINATION: GENERAL: The patient is alert and oriented x3, not in any acute distress. Well developed, well nourished. HEENT: Pupils are round and equally reacting to light. EOMI. No scleral icterus. No conjunctival pallor. Normocephalic, atraumatic. No pharyngeal erythema. No thyromegaly. CARDIOVASCULAR: S1 and S2 present. No murmurs, rubs, or gallops. PULMONARY: Chest is clear to auscultation, no wheezing or crackles. ABDOMEN: Soft, nontender, nondistended, normoactive bowel sounds. No palpable organomegaly. MUSCULOSKELETAL: No joint swelling or deformity. EXTREMITIES: No cyanosis, clubbing, or pedal edema. NEUROLOGICAL: Gross neurological examination did not reveal any focal deficits. SKIN: No rashes. For rest of the medical problems and hospital physician course please refer to HPI from yesterday Patient Condition at Discharge: Stable Plan - Discharge Summary New Discharge Prescriptions: New Simethicone 40 mg/0.6 ml Drops [Mylicon Drops] 40 mg PO QID #14 day Pantoprazole Sodium [Protonix] 40 mg PO BID #30 tablet. Ondansetron Odt [Zofran Odt] 4 mg PO Q8HR PRN #30 tab PRN Reason: Nausea And Vomiting Continue Levothyroxine Sodium [Synthroid] 112 mcg PO DAILY Citalopram Hydrobromide [Citalopram HBr] 20 mg PO DAILY Albuterol Sulfate [Albuterol Sulfate Hfa] 2 puff PO Q6H PRN PRN Reason: Shortness Of Breath Discontinued Omeprazole 20 mg PO DAILY Discharge Medication List Citalopram Hydrobromide [Citalopram HBr] 20 mg PO DAILY 07/01/14 [History] Levothyroxine Sodium [Synthroid] 112 mcg PO DAILY 07/01/14 [History] Albuterol Sulfate [Albuterol Sulfate Hfa] 2 puff PO Q6H PRN 03/10/20 [History] Ondansetron Odt [Zofran Odt] 4 mg PO Q8HR PRN #30 tab 04/01/20 [Rx] Pantoprazole Sodium [Protonix] 40 mg PO BID #30 tablet. 04/01/20 [Rx] Simethicone 40 mg/0.6 ml Drops [Mylicon Drops] 40 mg PO QID #14 day 04/01/20 [Rx] Follow up Appointment(s)/Referral(s): Rufina Reddy MD [STAFF PHYSICIAN] - 1 Week Malgorzata Mcmahan DO [Primary Care Provider] - 3 Days Discharge Disposition: HOME SELF-CARE
== END 2020-04-01 13:50 | disposition home or self-care (01) ==
LOC: EC 11:42 → 1SOBS 14:13
PROVIDERS: ADMIT Internal Medicine; ATTEND Internal Medicine
DX: R11.2 Nausea with vomiting, unspecified (principal); K21.0 Gastro-esophageal reflux disease with esophagitis; K44.9 Diaphragmatic hernia without obstruction or gangrene; K29.70 Gastritis, unspecified, without bleeding; K83.8 Other specified diseases of biliary tract; J45.909 Unspecified asthma, uncomplicated; R53.1 Weakness; F17.210 Nicotine dependence, cigarettes, uncomplicated; E03.9 Hypothyroidism, unspecified; F41.9 Anxiety disorder, unspecified; F32.9 Major depressive disorder, single episode, unspecified; R63.4 Abnormal weight loss; Z68.1 Body mass index [BMI] 19.9 or less, adult; Z79.890 Hormone replacement therapy; Z79.899 Other long term (current) drug therapy; Z88.1 Allergy status to other antibiotic agents; Z88.5 Allergy status to narcotic agent; Z98.42 Cataract extraction status, left eye; Z98.41 Cataract extraction status, right eye; Z96.1 Presence of intraocular lens; Z80.9 Family history of malignant neoplasm, unspecified
CPT/HCPCS: 96376 ×2; 96361; 96374; 96375; 99285; 36415; 80053; 82150; 83605; 83690; 83735; 85025; 81001; 76705; 78227; G0378 ×2; A9537; J2405; J2805; C9113 ×2

== ENCOUNTER 2020-04-09 10:23 | Inpatient (IN) | payer BC ==
[2020-04-09] MEDS ORDERED: HYDROmorphone 1 MG/ML 1 ML SYRINGE IVP STA (11:27)
[2020-04-09] MEDS ORDERED: SODIUM CHLORIDE 0.9% 1,000 ML IV STA ×2 (11:27)
[2020-04-09] MEDS ORDERED: ONDANSETRON 4 MG/2 ML VIAL IVP STA (11:27)
[2020-04-09] MEDS ORDERED: PANTOPRAZOLE 40 MG/10 ML VIAL IVP STA (11:27)
[2020-04-09 11:51] LABS: Basophils % (A) 0 %; Eosinophils # (A) 0.1 k/uL (0-0.7); Eosinophils % (A) 0 %; HCT 38.9 % (34.0-46.0); HGB 12.9 gm/dL (11.4-16.0); Lymphocytes # (A) 1.1 k/uL (1.0-4.8); Lymphocytes % (A) 9 %; MCH 29.4 pg (25.0-35.0); MCHC 33.2 g/dL (31.0-37.0); MCV 88.7 fL (80.0-100.0); Mean Platelet Volume 7.5; Monocytes # (A) 0.7 k/uL (0-1.0); Monocytes % (A) 5 %; Neutrophils # (A) 10.7 k/uL (1.3-7.7); Neutrophils % (A) 84 %; Platelet Count 337 k/uL (150-450); RBC 4.38 m/uL (3.80-5.40); RDW 12.8 % (11.5-15.5); WBC 12.8 k/uL (3.8-10.6)
[2020-04-09 11:56] LABS: Hyaline Casts,Urine 4 /lpf (0-2); Mucus,Urine Many /hpf; RBC,Urine 5 /hpf (0-5); Squamous Epithelial Cell,Urine <1 /hpf (0-4); WBC,Urine 4 /hpf (0-5)
[2020-04-09 11:59] LABS: ALT 10 U/L (4-34); AST 23 U/L (14-36); African American GFR (CKD) >90 (>60 ml/min/1.73 sqM); Albumin 4.1 g/dL (3.5-5.0); Alkaline Phosphatase 87 U/L (38-126); Amylase 34 U/L (30-110); Anion Gap 10 mmol/L; Blood Urea Nitrogen 12 mg/dL (7-17); Calcium 9.8 mg/dL (8.4-10.2); Carbon Dioxide 24 mmol/L (22-30); Chloride 100 mmol/L (98-107); Glucose 97 mg/dL (74-99); Non-African American GFR(CKD) >90 (>60 ml/min/1.73 sqM); Potassium 4.2 mmol/L (3.5-5.1); Sodium 134 mmol/L (137-145); Total Bilirubin 0.8 mg/dL (0.2-1.3); Total Protein 7.3 g/dL (6.3-8.2)
[2020-04-09 12:00] LABS: Appearance,Urine Clear (Clear); Color,Urine Amber; Partial Thromboplastin Time 22.3 sec (22.0-30.0); Protein,Urine 1+ (Negative); Prothrombin Time 10.7 sec (9.0-12.0)
[2020-04-09 12:01] LABS: Bilirubin,Urine 4+ (Negative); Blood,Urine Negative (Negative); Glucose,Urine (UA) Negative (Negative); Ketones,Urine 3+ (Negative)
[2020-04-09 12:02] LABS: Leukocyte Esterase,Urine Negative (Negative); Nitrite,Urine Negative (Negative)
--- NOTE | 2020-04-09 12:13 | ED ---
Abdominal Pain HPI - General Source: patient, RN notes reviewed, old records reviewed Mode of arrival: wheelchair Limitations: no limitations <Agatha Weber - Last Filed: 04/09/20 15:24> <Candace Camacho - Last Filed: 04/13/20 08:05> - General Chief Complaint: Abdominal Pain Stated Complaint: Abd Pain Time Seen by Provider: 04/09/20 11:00 - History of Present Illness Initial Comments: Janine is a 52-year-old female presents emergency room today with severe right upper quadrant abdominal pain. She is scheduled to have surgery to have her gallbladder removed next week. She states the pain became more severe today. Complains of nausea and vomiting. She was evaluated recently admitted for these complaints and was discharged to have this upcoming surgery. Patient states the pain is unrelenting. Her surgeon is Dr. Moore. Patient reports that she does have a difficult time taking deep breaths due to pain. She reports the pain seems to radiate from the right upper quadrant towards her back. (Agatha Weber) - Related Data Home Medications Medication Instructions Recorded Confirmed Citalopram Hydrobromide 20 mg PO DAILY 07/01/14 04/09/20 [Citalopram HBr] Levothyroxine Sodium [Synthroid] 112 mcg PO DAILY 07/01/14 04/09/20 Albuterol Sulfate [Albuterol 2 puff PO RT-QID PRN 03/10/20 04/09/20 Sulfate Hfa] Umeclidinium Brm/Vilanterol Tr 1 puff INHALATION RT-DAILY PRN 04/09/20 04/09/20 [Anoro Ellipta 62.5-25 Mcg INH] Previous Rx's Medication Instructions Recorded Ondansetron Odt [Zofran Odt] 4 mg PO Q8HR PRN #30 tab 04/01/20 Pantoprazole Sodium [Protonix] 40 mg PO BID #30 tablet. 04/01/20 Allergies Allergy/AdvReac Type Severity Reaction Status Date / Time erythromycin base Allergy Nausea & Verified 04/09/20 18:54 [Erythromycin Base] Vomiting, ABD. PAIN codeine AdvReac MIGRAINES Verified 04/09/20 18:53 Review of Systems ROS Other: All systems not noted in ROS Statement are negative. <Agatha Weber - Last Filed: 04/09/20 15:24> ROS Other: All systems not noted in ROS Statement are negative. <Candace Camacho Markel - Last Filed: 04/13/20 08:05> ROS Statement: Those systems with pertinent positive or pertinent negative responses have been documented in the HPI. Past Medical History Past Medical History: Asthma, GERD/Reflux, Thyroid Disorder Additional Past Medical History / Comment(s): EPIGASTRIC PAIN History of Any Multi-Drug Resistant Organisms: None Reported Past Surgical History: Tonsillectomy Additional Past Surgical History / Comment(s): VOCAL CORD NODULE REMOVED. COLONOSCOPY. BILAT CATARACT REMOVAL WITH LENS IMPLANT. EGD Past Anesthesia/Blood Transfusion Reactions: No Reported Reaction Past Psychological History: Depression Smoking Status: Current every day smoker Past Alcohol Use History: None Reported Past Drug Use History: None Reported - Past Family History Mother Family Medical History: Cancer Brother(s) Family Medical History: Cancer <Agatha Weber - Last Filed: 04/09/20 15:24> General Exam Limitations: no limitations General appearance: alert, in no apparent distress Head exam: Present: atraumatic, normocephalic, normal inspection Eye exam: Present: normal appearance, PERRL, EOMI. Absent: scleral icterus, conjunctival injection, periorbital swelling ENT exam: Present: normal exam, mucous membranes moist Neck exam: Present: normal inspection. Absent: tenderness, meningismus, lymphadenopathy Respiratory exam: Present: decreased breath sounds (Diminished right lower ). Absent: normal lung sounds bilaterally, respiratory distress, wheezes, rales, rhonchi, stridor Cardiovascular Exam: Present: regular rate, normal rhythm, normal heart sounds. Absent: systolic murmur, diastolic murmur, rubs, gallop, clicks GI/Abdominal exam: Present: soft, tenderness (RUQ ) <Agatha Weber - Last Filed: 04/09/20 15:24> - General Exam Comments Initial Comments: 60-year-old female. Alert and oriented. (Agatha Weber) Course Vital Signs 04/09/20 04/09/20 04/09/20 10:28 11:48 12:00 Temperature 98.1 F Pulse Rate 107 H 110 H 115 H Respiratory 18 16 16 Rate Blood Pressure 127/68 120/75 O2 Sat by Pulse 99 90 L 90 L Oximetry 04/09/20 04/09/20 04/09/20 12:30 12:48 13:00 Temperature Pulse Rate 107 H 110 H 110 H Respiratory 16 16 16 Rate Blood Pressure 133/84 109/75 109/75 O2 Sat by Pulse 88 L 93 L 96 Oximetry 04/09/20 04/09/20 04/09/20 13:30 13:55 14:00 Temperature Pulse Rate 109 H 99 97 Respiratory 16 16 16 Rate Blood Pressure 96/80 113/81 113/81 O2 Sat by Pulse 96 96 97 Oximetry 04/09/20 04/09/20 04/09/20 14:30 15:00 15:30 Temperature Pulse Rate 95 91 90 Respiratory 16 16 16 Rate Blood Pressure 133/88 142/88 103/78 O2 Sat by Pulse 96 96 96 Oximetry 04/09/20 04/09/20 16:00 16:30 Temperature Pulse Rate 99 89 Respiratory 16 17 Rate Blood Pressure 123/89 126/80 O2 Sat by Pulse 96 96 Oximetry Medical Decision Making - Lab Data Result diagrams: 04/09/20 11:36 04/09/20 11:36 - Radiology Data Radiology results: report reviewed <Agatha Weber - Last Filed: 04/09/20 15:24> - Lab Data Result diagrams: 04/12/20 07:31 04/12/20 07:31 <Candace Camacho - Last Filed: 04/13/20 08:05> - Medical Decision Making 52-year-old female presents emergency department today for concerns for right upper quadrant abdominal pain leading towards her back. More severe pain today. She scheduled have a gallbladder removed in a week by Dr. Plaza. Patient does not be somewhat hypoxic 88% on room air. D-dimer was added during her ER stay and it was positive. She had CT chest in senior care and abdomen and pelvis. There is evidence of a large hilar mass and right-sided pleural effusion. There is no signs of significant Gallbladder abnormalities. I do believe the patient's chronic right-sided upper abdominal pain and symptoms have been related to this crawling mediastinal mass. She had a normal computed tomography scan of her lung back in May. At this time patient's computed tomography scan also shows a small area of infiltrate. Blood cultures obtained and started on Rocephin. Patient will be admitted at this time with consult pulmonology and will put a consult to her surgeon. (Agatha Weber) I was available for consultation in the emergency department. The history and physical exam were done by the midlevel provider. I was consulted for this patients care. I reviewed the case with the midlevel provider and based on their presentation of the patient, I agree with the assessment, medical decision making and plan of care as documented. Discussed patients case with Dr. Jain who accepted admission. Chart was dictated using [employer] dictation software. Attempts were made to correct any dictation errors however some typographical errors may persist. (Candace Camacho) - Lab Data Lab Results 04/09/20 04/09/20 04/09/20 Range/Units 11:36 11:36 11:36 WBC 12.8 H (3.8-10.6) k/uL RBC 4.38 (3.80-5.40) m/uL Hgb 12.9 (11.4-16.0) gm/dL Hct 38.9 (34.0-46.0) % MCV 88.7 (80.0-100.0) fL MCH 29.4 (25.0-35.0) pg MCHC 33.2 (31.0-37.0) g/dL RDW 12.8 (11.5-15.5) % Plt Count 337 (150-450) k/uL Neutrophils % 84 % Lymphocytes % 9 % Monocytes % 5 % Eosinophils % 0 % Basophils % 0 % Neutrophils # 10.7 H (1.3-7.7) k/uL Lymphocytes # 1.1 (1.0-4.8) k/uL Monocytes # 0.7 (0-1.0) k/uL Eosinophils # 0.1 (0-0.7) k/uL Basophils # 0.0 (0-0.2) k/uL PT 10.7 (9.0-12.0) sec INR 1.0 (<1.2) APTT 22.3 (22.0-30.0) sec D-Dimer (<0.60) mg/L FEU Sodium (137-145) mmol/L Potassium (3.5-5.1) mmol/L Chloride (98-107) mmol/L Carbon Dioxide (22-30) mmol/L Anion Gap mmol/L BUN (7-17) mg/dL Creatinine (0.52-1.04) mg/dL Est GFR (CKD-EPI)AfAm (>60 ml/min/1.73 sqM) Est GFR (CKD-EPI)NonAf (>60 ml/min/1.73 sqM) Glucose (74-99) mg/dL Plasma Lactic Acid Robert (0.7-2.0) mmol/L Calcium (8.4-10.2) mg/dL Total Bilirubin (0.2-1.3) mg/dL AST (14-36) U/L ALT (4-34) U/L Alkaline Phosphatase (38-126) U/L Total Protein (6.3-8.2) g/dL Albumin (3.5-5.0) g/dL Amylase (30-110) U/L Lipase (23-300) U/L Urine Color Halima Urine Appearance Clear (Clear) Urine pH 6.0 (5.0-8.0) Ur Specific [place] 1.030 (1.001-1.035) Urine Protein 1+ H (Negative) Urine Glucose (UA) Negative (Negative) Urine Ketones 3+ H (Negative) Urine Blood Negative (Negative) Urine Nitrite Negative (Negative) Urine Bilirubin 4+ H (Negative) Urine Urobilinogen 4.0 (<2.0) mg/dL Ur Leukocyte Esterase Negative (Negative) Urine RBC 5 (0-5) /hpf Urine WBC 4 (0-5) /hpf Ur Squamous Epith Cells <1 (0-4) /hpf Hyaline Casts 4 H (0-2) /lpf Urine Mucus Many H (None) /hpf 04/09/20 04/09/20 04/09/20 Range/Units 11:36 11:36 11:41 WBC (3.8-10.6) k/uL RBC (3.80-5.40) m/uL Hgb (11.4-16.0) gm/dL Hct (34.0-46.0) % MCV (80.0-100.0) fL MCH (25.0-35.0) pg MCHC (31.0-37.0) g/dL RDW (11.5-15.5) % Plt Count (150-450) k/uL Neutrophils % % Lymphocytes % % Monocytes % % Eosinophils % % Basophils % % Neutrophils # (1.3-7.7) k/uL Lymphocytes # (1.0-4.8) k/uL Monocytes # (0-1.0) k/uL Eosinophils # (0-0.7) k/uL Basophils # (0-0.2) k/uL PT (9.0-12.0) sec INR (<1.2) APTT (22.0-30.0) sec D-Dimer 1.40 H (<0.60) mg/L FEU Sodium 134 L (137-145) mmol/L Potassium 4.2 (3.5-5.1) mmol/L Chloride 100 (98-107) mmol/L Carbon Dioxide 24 (22-30) mmol/L Anion Gap 10 mmol/L BUN 12 (7-17) mg/dL Creatinine 0.59 (0.52-1.04) mg/dL Est GFR (CKD-EPI)AfAm >90 (>60 ml/min/1.73 sqM) Est GFR (CKD-EPI)NonAf >90 (>60 ml/min/1.73 sqM) Glucose 97 (74-99) mg/dL Plasma Lactic Acid Robert 1.1 (0.7-2.0) mmol/L Calcium 9.8 (8.4-10.2) mg/dL Total Bilirubin 0.8 (0.2-1.3) mg/dL AST 23 (14-36) U/L ALT 10 (4-34) U/L Alkaline Phosphatase 87 (38-126) U/L Total Protein 7.3 (6.3-8.2) g/dL Albumin 4.1 (3.5-5.0) g/dL Amylase 34 (30-110) U/L Lipase 34 (23-300) U/L Urine Color Urine Appearance (Clear) Urine pH (5.0-8.0) Ur Specific [place] (1.001-1.035) Urine Protein (Negative) Urine Glucose (UA) (Negative) Urine Ketones (Negative) Urine Blood (Negative) Urine Nitrite (Negative) Urine Bilirubin (Negative) Urine Urobilinogen (<2.0) mg/dL Ur Leukocyte Esterase (Negative) Urine RBC (0-5) /hpf Urine WBC (0-5) /hpf Ur Squamous Epith Cells (0-4) /hpf Hyaline Casts (0-2) /lpf Urine Mucus (None) /hpf - Radiology Data CT abdomen and pelvis shows free fluid in the pelvis. Extensive abdominal and chest as described on computed tomography scan report. Computed tomography scan shows no evidence of pulmonary embolism. Right upper lobe masslike infiltrate. Very large mediastinal mass consistent with adenopathy. Malignancy is highly considered. Evidence of right pleural effusion. (Agatha Weber) Disposition Is patient prescribed a controlled substance at d/c from ED?: No Time of Disposition: 15:29 <Agatha Weber - Last Filed: 04/09/20 15:24> <Candace Camacho - Last Filed: 04/13/20 08:05> Clinical Impression: Hilar mass, Pleural effusion, Right sided abdominal pain, Pneumonia Disposition: ADMITTED IP TO THIS HOSP Condition: Stable
[2020-04-09] MEDS ORDERED: KETOROLAC 15 MG/ML 1 ML VIAL IVP STA (13:39)
[2020-04-09] MEDS ORDERED: SODIUM CHLORIDE 0.9% 1,000 ML IV ONE (13:52)
--- NOTE | 2020-04-09 14:59 | CT ---
EXAMINATION TYPE: CT chest angio for PE DATE OF EXAM: 04/09/2020 COMPARISON: None HISTORY: RUQ pain, difficulty breathing CT DLP: 232.5 mGycm Automated exposure control for dose reduction was used. CONTRAST: Performed with IV Contrast, patient injected with 100 mL of Isovue 370. There are 3-D post processed images. There is a very large mediastinal mass that measures approximately 15 x 8 cm extending from the super ior mediastinum and thoracic inlet to the diaphragm and encasing the right pulmonary artery. I see no filling defects in the pulmonary arteries. Thoracic aorta is intact. There is no aneurysm or dissect ion. There is infiltrate and atelectasis right lower lobe. There is moderate right pleural effusion. Left lung is clear of infiltrate. There is 3 x 2 cm irregular infiltrate in the lateral right upper l obe. Thoracic spine is intact. Sternum is intact. There is no evidence of a rib fracture. IMPRESSION: No evidence of pulmonary embolism. Right upper lobe masslike infiltrate. Very large mediastinal mass consistent with adenopathy. Maligna ncy should be highly considered. Right pleural effusion.
--- NOTE | 2020-04-09 15:04 | CT ---
EXAMINATION TYPE: CT abdomen pelvis w con DATE OF EXAM: 04/09/2020 COMPARISON: HISTORY: RUQ pain, difficulty breathing CT DLP: 557.5 mGycm Automated exposure control for dose reduction was used. CONTRAST: Performed with IV Contrast, patient injected with 100 mL of Isovue 370. Multiple axial sections were obtained from the diaphragm to the floor the pelvis with intravenous con trast. There is mild right pleural effusion. There is infiltrate and atelectasis right lower lobe. Left lung base is clear. There is 5 x 3.5 cm soft tissue mass posterior to the heart which is extension of the large mediastinal mass. This is obscuring the esophagus. I see no discrete liver mass. Spleen is intact. There is no evidence of pancreatic mass. There is no adrenal mass. Gallbladder appears normal. Kidneys show satisfactory contrast opacification. There is no hydronephrosis. Delayed images show normal renal excretion. There is no retroperitoneal adenopathy . There is free fluid in the pelvis. Bladder distends smoothly. There is no inguinal hernia. There is no evidence of a pelvic mass. Uterus is anteverted. Lumbar vertebra have fairly normal alignment. Th ere is no compression fracture. Bony pelvis is intact. Appendix is normal and best seen on the villegas l images. IMPRESSION: There is some free fluid in the pelvis. Extensive abnormality in the chest described on the chest CT scan report.
[2020-04-09] MEDS ORDERED: cefTRIAXone IN SWFI 1,000 MG/10 ML SYRINGE IVP STA (15:27)
[2020-04-09] MEDS ORDERED: IBUPROFEN 400 MG TAB PO PRN (15:30)
[2020-04-09] MEDS ORDERED: HYDROmorphone 1 MG/ML 1 ML SYRINGE IVP PRN (15:30)
[2020-04-09] MEDS ORDERED: NALOXONE 0.4 MG/ML 1 ML VIAL IV PRN (15:30)
[2020-04-09] MEDS: SODIUM CHLORIDE 0.9% 1,000 ML IV SCH (16:13)
[2020-04-09] MEDS ORDERED: TEMAZEPAM 15 MG CAP PO PRN (17:24)
[2020-04-09] MEDS ORDERED: LORazepam 0.5 MG TAB PO PRN (17:24)
--- NOTE | 2020-04-09 17:53 | XR ---
EXAMINATION TYPE: XR chest 1V portable DATE OF EXAM: 04/09/2020 COMPARISON: NONE HISTORY: Pleural effusion.. Pneumonia. Hilar mass. TECHNIQUE: Single view FINDINGS: Heart appears slightly enlarged. There is right pleural effusion. There is consolidation at the right lung base. There is increased density in the right paratracheal region and right pulmonary hilum con sistent with adenopathy evident on the chest CT scan. There is a poorly marginated 3 cm infiltrate in the right upper lobe. Left lung appears clear. There is no heart failure. IMPRESSION: Mediastinal and bronchial adenopathy. Pleural effusion and pulmonary consolidation in the right lower lobe. No heart failure seen.
--- NOTE | 2020-04-09 19:22 | HP ---
HISTORY AND PHYSICAL CHIEF COMPLAINT: Right-sided low hypochondrial pain and as well as back pain as well as epigastric pain. HISTORY OF PRESENT ILLNESS: This 60-year-old woman with a past medical history of multiple medical problems including history of asthma, GERD, hypothyroidism, history of epigastric pain, being followed by Dr. Mcmahan in the outpatient setting was recently admitted with abdominal pain. The patient was suspected of gallbladder pathology with abnormal HIDA scan. Surgery was scheduled. Currently the patient complaining more of the right hypochondrial pain. Initially the pain was epigastric. The pain is also radiating to the back of the right side. The patient came to [facility] and the patient underwent a chest CTA which showed extensive lymphadenopathy and as well as right upper lobe masslike infiltrate with some right-sided pleural effusion. Patient admitted to the hospital for further evaluation and treatment. There is no history of fever, rigors or chills. No history of headache, loss of consciousness or seizures. Patient also had about 17 pounds of weight loss in the past few weeks. PAST MEDICAL HISTORY: History of asthma, GERD, hypothyroidism, tonsillectomy. MEDICATIONS: 1. Protonix 40 mg b.i.d. 2. Zofran. 3. Synthroid. 4. Celexa. 5. Albuterol. ALLERGIES: CODEINE AND ERYTHROMYCIN. FAMILY HISTORY: Family history of cancer. SOCIAL HISTORY: History of smoking. No history of alcohol intake. REVIEW OF SYSTEMS: ENT: No diminished vision. No diminished hearing. CARDIOVASCULAR: No angina or palpitations. RESPIRATIONS: As mentioned earlier. GI: As mentioned earlier. no dysuria. NERVOUS SYSTEM: No numbness or weakness. ALLERGY/IMMUNOLOGY: No asthma or hayfever. MUSCULOSKELETAL: As mentioned earlier. HEMATOLOGY: No history of anemia. ENDOCRINE: No history of diabetes or hypothyroidism. CONSTITUTIONAL: As mentioned earlier. DERMATOLOGY: Negative. RHEUMATOLOGY negative. PSYCHIATRY as mentioned earlier. PHYSICAL EXAMINATION: Alert and oriented x3. Pulse is 99, blood pressure 123/89. Respiration 16. Temperature normal. Pulse ox 96% on 2 L. HEENT: Conjunctivae normal. Oral mucosa moist. NECK: No JVD. RESPIRATORY SYSTEM: Breath sounds diminished at the bases. A few rhonchi. No crackles. ABDOMEN: Soft, nontender. No mass palpable. LEGS: No edema. No swelling. NERVOUS SYSTEM: Higher functions as mentioned earlier. Moves all four limbs. No focal motor or sensory deficits. SKIN: No ulcer, no rashes and no bleeding. JOINTS: No active deforming arthropathy. LABS: WBC 12.8, hemoglobin 12.9, sodium is 134, potassium 4.2. ASSESSMENT: 1. Right upper lobe mass lesion with mediastinal lymphadenopathy, rule out malignancy. 2. Right pleural effusion. 3. History of recent gallbladder disease slated for cholecystectomy. 4. Hyponatremia. 5. Increased WBC. 6. History of asthma. 7. History of gastroesophageal reflux disease. 8. History of tonsillectomy. 9. History of vocal cord nodule. 10.History of colonoscopy. 11.History of bilateral cataracts. 12.History of depression. 13.History of continued ongoing nicotine dependence. 14.History of recent weight loss. 15.Mild protein calorie malnutrition with BMI 18.8. 16.FULL CODE. RECOMMENDATIONS AND DISCUSSION: This 60-year-old woman who presented with multiple complex medical issues, we will monitor the patient closely, continue the current medications, and symptomatic treatment. Otherwise, at this time, I recommend symptomatic treatment. Pulmonary consultation for evaluation. The patient might be a candidate for either I would also order a chest x-ray and if it shows significant effusion I would also order ultrasound of the chest and if that shows significant effusion, the patient may be a candidate for pleural tap and looking for any malignant cells. Otherwise, the patient might require bronchoscopy or mediastinoscopy or biopsy and surgery also will be consulted. A bone scan also because the patient complaining of back pain radiating to the front. Prognosis extremely guarded. Symptomatic treatment will be provided and further recommendations to follow. A copy of this forwarded to Dr. Mcmahan, who is the primary physician. MMODL / IJN: [id number] / MT[place]armen
[2020-04-09] MEDS: KETOROLAC 15 MG/ML 1 ML VIAL IVP PRN (20:40)
[2020-04-09] MEDS: HEPARIN SODIUM,PORCINE 5,000 UNIT/ML 1 ML VIAL SQ SCH (20:43)
[2020-04-10] MEDS: SODIUM CHLORIDE 0.9% 1,000 ML IV SCH ×3 (02:28→16:01)
[2020-04-10] MEDS: KETOROLAC 15 MG/ML 1 ML VIAL IVP PRN ×3 (02:30→17:31)
[2020-04-10 07:47] LABS: African American GFR (CKD) >90 (>60 ml/min/1.73 sqM); Anion Gap 4 mmol/L; Blood Urea Nitrogen 10 mg/dL (7-17); Calcium 8.6 mg/dL (8.4-10.2); Carbon Dioxide 25 mmol/L (22-30); Chloride 105 mmol/L (98-107); Glucose 80 mg/dL (74-99); Non-African American GFR(CKD) >90 (>60 ml/min/1.73 sqM); Potassium 4.2 mmol/L (3.5-5.1); Sodium 134 mmol/L (137-145)
[2020-04-10 07:55] LABS: Basophils % (A) 0 %; Eosinophils # (A) 0.1 k/uL (0-0.7); Eosinophils % (A) 1 %; HCT 32.9 % (34.0-46.0); HGB 10.3 gm/dL (11.4-16.0); Lymphocytes # (A) 1.6 k/uL (1.0-4.8); Lymphocytes % (A) 29 %; MCH 29.3 pg (25.0-35.0); MCHC 31.3 g/dL (31.0-37.0); Mean Platelet Volume 7.6; Monocytes # (A) 0.4 k/uL (0-1.0); Monocytes % (A) 8 %; Neutrophils # (A) 3.4 k/uL (1.3-7.7); Neutrophils % (A) 60 %; Platelet Count 261 k/uL (150-450); RBC 3.51 m/uL (3.80-5.40); RDW 12.8 % (11.5-15.5); WBC 5.6 k/uL (3.8-10.6)
[2020-04-10 08:00] LABS: MCV 93.7 fL (80.0-100.0)
[2020-04-10] MEDS: HEPARIN SODIUM,PORCINE 5,000 UNIT/ML 1 ML VIAL SQ SCH ×2 (08:17→20:32)
[2020-04-10] MEDS: PANTOPRAZOLE 40 MG TABLET PO SCH (08:17)
[2020-04-10] MEDS: ACETAMINOPHEN TAB 325 MG TAB PO PRN (08:20)
--- NOTE | 2020-04-10 08:38 | US ---
EXAMINATION TYPE: US chest DATE OF EXAM: 04/10/2020 COMPARISON: Radiograph 04/09/2020 CLINICAL HISTORY: 60-year-old female Markings for thoracentesis by pulmonary staff. Right Pleural eff usion TECHNIQUE: Targeted ultrasound of the posterior chest EXAM MEASUREMENTS: Right Pleural Effusion pocket size: 10.2 cm; however, 2 segments of lung noted floating within fluid pocket Right skin surface to fluid distance: 2.0 cm Left Pleural Effusion pocket size: no fluid seen Right side was marked for possible thoracentesis outside the dept. Pulmonologists are able to review the images in the patient?s EMR. IMPRESSIONS: Moderate right-sided pleural effusion with marking performed. Note 2 segments of interposed atelectat ic lung within the fluid. No left pleural effusion.
--- NOTE | 2020-04-10 11:31 | P.GSCN ---
History of Present Illness Consult date: 04/10/20 Reason for Consult: Right upper quadrant pain History of present illness: This 52-year-old female who was seen in the office last week. Patient with recurrent quadrant pain. Patient had a ultrasound showed a possible stone or gallbladder wall polyp. Patient had been scheduled for elective laparoscopic cholestatic. Patient presented emergently with complaints of increased pain. Patient had a CTA of the chest performed which shows a possible right upper lobe mass and significant lymphadenopathy in the mediastinum. Past Medical History Past Medical History: Asthma, GERD/Reflux, Thyroid Disorder Additional Past Medical History / Comment(s): EPIGASTRIC PAIN History of Any Multi-Drug Resistant Organisms: None Reported Past Surgical History: Tonsillectomy Additional Past Surgical History / Comment(s): VOCAL CORD NODULE REMOVED. COLONOSCOPY. BILAT CATARACT REMOVAL WITH LENS IMPLANT. EGD Past Anesthesia/Blood Transfusion Reactions: No Reported Reaction Past Psychological History: Depression Smoking Status: Current every day smoker Past Alcohol Use History: None Reported Additional Past Alcohol Use History / Comment(s): < 1PPD SINCE AGE 20-TRYING TO QUIT Past Drug Use History: None Reported - Past Family History Mother Family Medical History: Cancer Brother(s) Family Medical History: Cancer Medications and Allergies Home Medications Medication Instructions Recorded Confirmed Type Citalopram Hydrobromide 20 mg PO DAILY 07/01/14 04/09/20 History [Citalopram HBr] Levothyroxine Sodium [Synthroid] 112 mcg PO DAILY 07/01/14 04/09/20 History Albuterol Sulfate [Albuterol 2 puff PO RT-QID PRN 03/10/20 04/09/20 History Sulfate Hfa] Ondansetron Odt [Zofran Odt] 4 mg PO Q8HR PRN #30 tab 04/01/20 04/09/20 Rx Pantoprazole Sodium [Protonix] 40 mg PO BID #30 tablet. 04/01/20 04/09/20 Rx Umeclidinium Brm/Vilanterol Tr 1 puff INHALATION RT-DAILY PRN 04/09/20 04/09/20 History [Anoro Ellipta 62.5-25 Mcg INH] Allergies Allergy/AdvReac Type Severity Reaction Status Date / Time erythromycin base Allergy Nausea & Verified 04/09/20 18:54 [Erythromycin Base] Vomiting, ABD. PAIN codeine AdvReac MIGRAINES Verified 04/09/20 18:53 Surgical - Exam Vital Signs Temp Pulse Resp BP Pulse Ox 98.1 F 107 H 18 127/68 99 04/09/20 10:28 04/09/20 10:28 04/09/20 10:28 04/09/20 10:28 04/09/20 10:28 - General well developed, well nourished, no distress - Eyes PERRL - ENT normal pinna - Neck no masses - Respiratory normal expansion - Cardiovascular Rhythm: regular - Abdomen Mild right quadrant pain Abdomen: soft Results - Labs 04/10/20 07:01 04/10/20 07:01 Abnormal Lab Results - Last 24 Hours (Table) 04/09/20 04/09/20 04/09/20 Range/Units 11:36 11:36 11:36 WBC 12.8 H (3.8-10.6) k/uL RBC (3.80-5.40) m/uL Hgb (11.4-16.0) gm/dL Hct (34.0-46.0) % Neutrophils # 10.7 H (1.3-7.7) k/uL D-Dimer (<0.60) mg/L FEU Sodium 134 L (137-145) mmol/L Urine Protein 1+ H (Negative) Urine Ketones 3+ H (Negative) Urine Bilirubin 4+ H (Negative) Hyaline Casts 4 H (0-2) /lpf Urine Mucus Many H (None) /hpf 04/09/20 04/10/20 04/10/20 Range/Units 11:36 07:01 07:01 WBC (3.8-10.6) k/uL RBC 3.51 L (3.80-5.40) m/uL Hgb 10.3 L (11.4-16.0) gm/dL Hct 32.9 L (34.0-46.0) % Neutrophils # (1.3-7.7) k/uL D-Dimer 1.40 H (<0.60) mg/L FEU Sodium 134 L (137-145) mmol/L Urine Protein (Negative) Urine Ketones (Negative) Urine Bilirubin (Negative) Hyaline Casts (0-2) /lpf Urine Mucus (None) /hpf Diabetes panel 04/09/20 04/10/20 Range/Units 11:36 07:01 Sodium 134 L 134 L (137-145) mmol/L Potassium 4.2 4.2 (3.5-5.1) mmol/L Chloride 100 105 (98-107) mmol/L Carbon Dioxide 24 25 (22-30) mmol/L BUN 12 10 (7-17) mg/dL Creatinine 0.59 0.55 (0.52-1.04) mg/dL Glucose 97 80 (74-99) mg/dL Calcium 9.8 8.6 (8.4-10.2) mg/dL AST 23 (14-36) U/L ALT 10 (4-34) U/L Alkaline Phosphatase 87 (38-126) U/L Total Protein 7.3 (6.3-8.2) g/dL Albumin 4.1 (3.5-5.0) g/dL Calcium panel 04/09/20 04/10/20 Range/Units 11:36 07:01 Calcium 9.8 8.6 (8.4-10.2) mg/dL Albumin 4.1 (3.5-5.0) g/dL Pituitary panel 04/09/20 04/10/20 Range/Units 11:36 07:01 Sodium 134 L 134 L (137-145) mmol/L Potassium 4.2 4.2 (3.5-5.1) mmol/L Chloride 100 105 (98-107) mmol/L Carbon Dioxide 24 25 (22-30) mmol/L BUN 12 10 (7-17) mg/dL Creatinine 0.59 0.55 (0.52-1.04) mg/dL Glucose 97 80 (74-99) mg/dL Calcium 9.8 8.6 (8.4-10.2) mg/dL Adrenal panel 04/09/20 04/10/20 Range/Units 11:36 07:01 Sodium 134 L 134 L (137-145) mmol/L Potassium 4.2 4.2 (3.5-5.1) mmol/L Chloride 100 105 (98-107) mmol/L Carbon Dioxide 24 25 (22-30) mmol/L BUN 12 10 (7-17) mg/dL Creatinine 0.59 0.55 (0.52-1.04) mg/dL Glucose 97 80 (74-99) mg/dL Calcium 9.8 8.6 (8.4-10.2) mg/dL Total Bilirubin 0.8 (0.2-1.3) mg/dL AST 23 (14-36) U/L ALT 10 (4-34) U/L Alkaline Phosphatase 87 (38-126) U/L Total Protein 7.3 (6.3-8.2) g/dL Albumin 4.1 (3.5-5.0) g/dL Assessment and Plan Assessment: Neo quadrant pain most likely due to pleural effusion. Patient will undergo workup of her right upper lobe mass. Her cholecystectomy will be canceled.
--- NOTE | 2020-04-10 12:22 | P.PN ---
Progress Note - Text Progress Note Date: 04/10/20 The patient was not in her room on 2 separate occasions in attempt to see her in consultation today. Dr. Taylor did review the patient's CAT scan which revealed a right upper lobe masslike infiltrate. Very large mediastinal mass consistent with adenopathy. Right pleural effusion. Ultrasound of the right chest revealed a moderate right-sided pleural effusions. There was 2 segments of interposed atelectatic lung within the fluid. No plans for thoracentesis. The patient will be seen in consultation by Dr. Shafer tomorrow. She will most likely need a bronchoscopy with transcarinal Hardwick needle biopsies of the enlarged lymph nodes. Suspect either small cell lung cancer versus lymphoma.
--- NOTE | 2020-04-10 13:31 | NM ---
EXAMINATION TYPE: NM bone scan whole body DATE OF EXAM: 04/10/2020 COMPARISON: CT 04/09/2020 HISTORY: 60-year-old female with back pain TECHNIQUE: Delayed whole-body scanning was performed following the injection of 23.9 mCi Tc 99m MDP. Images acquired 3 hours post injection. FINDINGS: No suspicious tracer activity within the axial or appendicular skeleton to suggest osseous metastatic disease. IMPRESSION: 1. No scintigraphic evidence for osseous metastatic disease. 2. Recommend pelvic ultrasound to exclude a 6.4 cm cystic left adnexal mass (refer to sagittal image 61 of the patient's 04/09/2020 CT abdomen).
[2020-04-10] MEDS ORDERED: IPRATROPIUM-ALBUTEROL 3 ML NEB INHALATION PRN (15:12)
[2020-04-10] MEDS: PIPERACILLIN-TAZOBACTAM 3.375 GM in SODIUM CHLORIDE 0.9% 100 ML IVPB SCH (15:53)
--- NOTE | 2020-04-10 17:05 | PN ---
PROGRESS NOTE DATE OF SERVICE: 04/10/2020 This 60-year-old woman was admitted with right-sided chest pain and pain and right upper lobe mass lesion. Multiple consultants are following the patient closely. Bone scan has been done and showed no sonographic evidence of any metastatic disease. Surgery has seen the patient. The patient also had pleural effusion on the right side. The patient is being planned for possible bronchoscopy and transbronchial lung needle biopsy. No chest pain. No palpitations. No fever. PAST MEDICAL HISTORY: Reviewed. REVIEW OF SYSTEMS: CARDIOVASCULAR: No angina or palpitations. RESPIRATORY: As mentioned earlier. GI: As mentioned earlier. : No dysuria or hematuria. NERVOUS SYSTEM: No numbness or weakness. CURRENT MEDICATIONS: Reviewed and include; 1. Tylenol p.r.n. 2. Heparin subcu b.i.d. 3. Dilaudid. 4. Motrin. 5. Toradol. 6. Ativan. 7. Narcan. 8. Zofran. 9. Protonix. 10.Restoril. PHYSICAL EXAM: Patient is alert and oriented times three. Pulse 85, blood pressure 118/70, respiration 17, temperature 98.1, pulse ox 99% on 2 L. HEENT: Conjunctivae normal. Oral mucosa moist. NECK: No jugular venous distention. CARDIOVASCULAR: S1, S2, muffled. RESPIRATORY: Diminished breath sounds at the bases. A few scattered rhonchi and crackles. ABDOMEN: Soft, nontender. LEGS: No edema, no swelling. NERVOUS SYSTEM: No focal deficits. LABS: WBC 5.6, hemoglobin 10.3. Sodium is 134. ASSESSMENT: 1. Right upper lobe mass lesion with possible mediastinal lymphadenopathy, rule out lung malignancy or lymphoma. 2. Right pleural effusion, loculated. 3. History of recent gallbladder disease and slated for cholecystectomy. 4. Possible atelectasis in the right lower lobe. 5. Hyponatremia. 6. Increased WBC. 7. History of asthma. 8. Gastroesophageal reflux disease. 9. History of tonsillectomy. 10.History of vocal cord nodule. 11.History of colonoscopy. 12.History of bilateral cataracts. 13.History of depression. 14.Continued ongoing nicotine dependence. 15.History of recent weight loss. 16.Mild protein calorie malnutrition with BMI 18.8. 17.FULL CODE. RECOMMENDATIONS AND DISCUSSION: Continue current medications and continue with symptomatic treatment. Otherwise at this time, I would also recommend continuing with empiric antibiotics. Closely follow with Pulmonary. Resume the home medications. Guarded prognosis because of multiple complex medical issues and further recommendations to follow. Medication reconciliation has been done. MMZARINAL / IJN: [id number] / MTDD
[2020-04-10] MEDS: IPRATROPIUM-ALBUTEROL 3 ML NEB INHALATION SCH (20:16)
[2020-04-10] MEDS: SYMBICORT 160-4.5 MCG INHALER INHALATION SCH (20:16)
[2020-04-11] MEDS: KETOROLAC 15 MG/ML 1 ML VIAL IVP PRN (00:24)
[2020-04-11] MEDS: PIPERACILLIN-TAZOBACTAM 3.375 GM in SODIUM CHLORIDE 0.9% 100 ML IVPB SCH ×3 (00:25→16:05)
[2020-04-11] MEDS: LEVOTHYROXINE 112 MCG TAB PO SCH (05:31)
[2020-04-11 07:33] LABS: Basophils % (A) 0 %; Eosinophils # (A) 0.1 k/uL (0-0.7); Eosinophils % (A) 1 %; HCT 29.9 % (34.0-46.0); HGB 9.5 gm/dL (11.4-16.0); Lymphocytes # (A) 1.1 k/uL (1.0-4.8); Lymphocytes % (A) 21 %; MCH 29.1 pg (25.0-35.0); MCHC 31.9 g/dL (31.0-37.0); MCV 91.2 fL (80.0-100.0); Mean Platelet Volume 7.7; Monocytes # (A) 0.3 k/uL (0-1.0); Monocytes % (A) 6 %; Neutrophils # (A) 3.6 k/uL (1.3-7.7); Neutrophils % (A) 69 %; Platelet Count 251 k/uL (150-450); RBC 3.28 m/uL (3.80-5.40); RDW 12.9 % (11.5-15.5); WBC 5.2 k/uL (3.8-10.6)
[2020-04-11 07:46] LABS: African American GFR (CKD) >90 (>60 ml/min/1.73 sqM); Anion Gap 4 mmol/L; Blood Urea Nitrogen 4 mg/dL (7-17); Calcium 8.6 mg/dL (8.4-10.2); Carbon Dioxide 25 mmol/L (22-30); Chloride 106 mmol/L (98-107); Glucose 90 mg/dL (74-99); Non-African American GFR(CKD) >90 (>60 ml/min/1.73 sqM); Sodium 135 mmol/L (137-145)
[2020-04-11] MEDS: SYMBICORT 160-4.5 MCG INHALER INHALATION SCH ×2 (07:46→20:34)
[2020-04-11] MEDS: IPRATROPIUM-ALBUTEROL 3 ML NEB INHALATION SCH ×3 (07:46→20:33)
[2020-04-11] MEDS: PANTOPRAZOLE 40 MG TABLET PO SCH (08:57)
[2020-04-11] MEDS: CITALOPRAM HYDROBROMIDE 20 MG TAB PO SCH (08:57)
[2020-04-11] MEDS: HEPARIN SODIUM,PORCINE 5,000 UNIT/ML 1 ML VIAL SQ SCH (08:57)
--- NOTE | 2020-04-11 14:07 | CONS ---
CONSULTATION PULMONARY/CRITICAL CARE CONSULTATION: DATE OF CONSULTATION: April 11, 2020 HISTORY OF PRESENT ILLNESS: This is a 60-year-old patient who has been smoking for more than 40 years, who presents to the emergency department on April 09 with severe right upper quadrant abdominal pain. She apparently was to have surgery for cholecystectomy in the near future. The pain had apparently became more severe. In addition, she had nausea and vomiting. She was evaluated for these complaints. Dr. Moore was the purported surgeon, in addition, she admits to some difficulty in taking a deep breath. She feels like when she takes a deep breath, she cannot fully expand her lungs and she has pain in the right chest area. The patient was evaluated in the emergency room. She was admitted to the hospital. Unfortunately, she had scans done which showed a large right hilar mass, subcarinal adenopathy, right-sided pleural effusion and possible underlying postobstructive pneumonia. We were consulted because of the lesion in the right chest. This likely represents either lung cancer or lymphoma. She apparently had a low-dose CT scan done May 2019, which was normal. Today, we get her scheduled for a bronchoscopy with biopsies and subcarinal Hardwick needle on Saturday. HOME MEDICATIONS: Home medications are reviewed. She is on citalopram, levothyroxine, albuterol inhaler, Zofran, Protonix. ALLERGIES: CODEINE AND ERYTHROMYCIN. PAST MEDICAL HISTORY: Includes mild asthma, acid reflux disease, and hypothyroidism. In addition, it should be pointed out that the patient has been having issues with difficulty breathing and pain in the right chest a number of months now. In addition, she has had poor appetite and about 17 pounds weight loss. SURGICAL HISTORY: Includes surgical history includes tonsillectomy, vocal cord nodule that was excised, colonoscopy, bilateral cataract removal with lens implants, and EGD. SOCIAL HISTORY: Positive for ongoing tobacco use. She has been smoking for about 42 years of more than a pack a day. Denies any alcohol or illicit drug use. FAMILY HISTORY: Positive for mother with cancer, a brother with cancer. REVIEW OF SYSTEMS: CONSTITUTIONAL negative. NEUROLOGIC negative. HEENT negative. CARDIOVASCULAR: The right anterior lateral chest discomfort particularly with deep breathing. PULMONARY: Shortness of breath. GI: Right upper quadrant abdominal pain. negative. RHEUMATOLOGIC negative. IMMUNOLOGIC negative. ENDOCRINOLOGIC negative. DERMATOLOGIC negative. PHYSICAL EXAMINATION: VITAL SIGNS: Current vital signs are reviewed. Temperature is 97.8. Heart rate 85, respiratory rate 16, blood pressure 147/90 mean 109, 2 L saturation 99%. GENERAL: Appears in no acute distress. HEENT: Examination is grossly unremarkable. NECK: Supple, full range of motion. No adenopathy. Neck veins are flat. CARDIOVASCULAR: Examination reveals regular rhythm and rate. Heart rate 80 beats per minute. S1, S2 normal. LUNGS: Reveal diminished breath sounds on the right. There are a few scattered rhonchi. No wheezes or crackles. ABDOMEN: Soft. EXTREMITIES are intact. There is no cyanosis, clubbing, or edema. SKIN: Without rash. NEUROLOGIC: Examination is nonfocal. LABS: Reviewed. White count 5.2, hemoglobin 9.5, hematocrit 29.9, platelet count 351,000. PT/INR PTT all normal. D-dimer 1.4. Sodium 135, potassium 4, chloride 106, CO2 25, anion gap is 4, BUN and creatinine were 4 and 0.54. Urine shows 1+ protein, 3+ ketones, 4+ bilirubin, 4 hyaline casts and much in the way of urinary mucus. Leukocyte esterase and nitrate were both negative. Microbiology is negative. X-rays are reviewed. She has a bone scan which showed no evidence of metastatic disease. A chest ultrasound showing a large right-sided pleural effusion, but unfortunately the lung is seen within the fluid and presents risky potential procedure and abdominal/pelvic CT scan which shows some is free fluid in the pelvis and a CT angiogram which shows right upper lobe masslike infiltrate with large mediastinal mass and adenopathy. There is also right-sided pleural effusion. Current medications are reviewed. She is on Tylenol, Symbicort, citalopram, subcu heparin, Dilaudid, Motrin, which I am going to DC, updrafts, Toradol, levothyroxine, Ativan, Narcan, Zofran, Protonix, Zosyn, and Restoril. ASSESSMENT: 1. Right-sided lung mass with significant mediastinal adenopathy, consistent with either lung cancer and/or lymphoma. 2. Possible postobstructive pneumonitis. 3. History of mild asthma. 4. History of gastroesophageal reflux disease. 5. Hypothyroidism. 6. 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 PLAN: The patient is put on the books for a bronchoscopy to be done on Saturday. Done in the operating room under general anesthesia. We will plan on doing endobronchial or transbronchial biopsies of the right lung as well as subcarinal transbronchial needle aspirations. Additional recommendations and suggestions forthcoming. Prognosis is guarded. We will continue to follow. We did explain the procedure to the patient today. She does understand. Additional recommendations and suggestions are forthcoming. MMODL / IJN: [id number] /
--- NOTE | 2020-04-11 14:22 | P.PN ---
Subjective Progress Note Date: 04/11/20 CHIEF COMPLAINT: Right upper quadrant abdominal pain HISTORY OF PRESENT ILLNESS: Right quadrant abdominal pain with previous ultrasound showing a possible stone or gallbladder wall polyp. Patient initiall y scheduled for an elective laparoscopic cholecystectomy. Currently labs. Cholecystectomy has been canceled due to patient's right lung mass. She is scheduled for bronchoscopy tomorrow. Patient reports that her pain is tolerable. She denies any nausea or vomiting. Denies any change in bowel mo vements. She is on regular diet. She's afebrile. Hemoglobin 9.5. WBC 5.2 PHYSICAL EXAM: VITAL SIGNS: Reviewed. GENERAL: Well-developed in no acute distress. HEENT: No sclera icterus. Extraocular movements grossly intact. Moist buccal mucosa. Head is atraumatic, normocephalic. ABDOMEN: Soft. Nondistended. Nontender. NEUROLOGIC: Alert and oriented. Cranial nerves II through XII grossly intact. ASSESSMENT: 1. Right upper quadrant abdominal pain likely secondary to patient's pleural effusion. 2. Right upper lobe lung mass pulmonary is following. Patient is scheduled for bronchoscopy tomorrow PLAN: -Cholecystectomy has been canceled -Continue regular diet Physician Slitter Cut Off Operator note has been reviewed by physician. Signing provider agrees with the documented findings, assessment, and plan of care. Objective - Vital Signs Vital signs: Vital Signs Temp 97.8 F 04/11/20 07:00 Pulse 86 04/11/20 13:04 Resp 16 04/11/20 07:00 BP 147/90 04/11/20 07:00 Pulse Ox 98 04/11/20 07:46 Intake & Output 04/10/20 04/11/20 04/11/20 18:59 06:59 18:59 Weight 54.431 kg Other: Voiding Method Toilet Toilet # Voids 1 1 - Labs CBC & Chem 7: 04/11/20 06:52 04/11/20 06:52 Labs: Abnormal Lab Results - Last 24 Hours (Table) 04/11/20 04/11/20 Range/Units 06:52 06:52 RBC 3.28 L (3.80-5.40) m/uL Hgb 9.5 L (11.4-16.0) gm/dL Hct 29.9 L (34.0-46.0) % Sodium 135 L (137-145) mmol/L BUN 4 L (7-17) mg/dL Microbiology - Last 24 Hours (Table) 04/09/20 16:05 Blood Culture - Preliminary Blood No Growth after 24 hours
--- NOTE | 2020-04-11 15:22 | PN ---
PROGRESS NOTE DATE OF SERVICE: 04/11/2020 This 60-year-old woman was admitted with right-sided chest pain, also had significant right mass lesion as well as mediastinal lymphadenopathy. Bone scan is negative at this time. Pulmonary has seen the patient and recommended bronchoscopy. No chest pain. No palpitations. No fever. PHYSICAL EXAMINATION: Alert and oriented times three. Pulse is 85. Blood pressure 147/90, respiration 16, temperature 97.8, pulse ox 98% on 2 L. HEENT: Conjunctivae normal. NECK: No JVD. CARDIOVASCULAR: S1, S2 muffled. RESPIRATIONS: Breath sounds diminished in the bases. A few scattered rhonchi. No crackles. ABDOMEN: Soft. NERVOUS SYSTEM: No focal deficits. LABS: WBC 5.2, hemoglobin 9.4, sodium 130. Other labs noted. ASSESSMENT: 1. Right upper lobe mass lesion with possible mediastinal lymphadenopathy, rule malignancy or lymphoma. 2. Right pleural effusion located. 3. Possible right lower lobe pneumonia, post obstructive and gram-negative. 4. History of recent gallbladder disease and slated for cholecystectomy. 5. Possible atelectasis in the right lower lobe. 6. Hyponatremia. 7. Increased WBC. 8. History of asthma. 9. Gastroesophageal reflux disease. 10.History of tonsillectomy. 11.Vocal cord nodule. 12.History of colonoscopy. 13.History of bilateral cataract. 14.History of depression. 15.Continued ongoing nicotine dependence. 16.History of recent weight loss. 17.Mild protein calorie malnutrition, BMI 18.8. 18.FULL CODE. RECOMMENDATIONS AND DISCUSSION: I recommend to continue current medications, continue with monitoring, symptomatic treatment. Otherwise at this time, I recommend continue with bronchodilators. Continue empiric antibiotics. Pulmonary consultation, possible bronchoscopy. Guarded prognosis. Further recommendations to follow. MMODL / IJN: [id number] /
[2020-04-11] MEDS: SODIUM CHLORIDE 0.9% 1,000 ML IV SCH (16:05)
[2020-04-11] MEDS: ACETAMINOPHEN TAB 325 MG TAB PO PRN (16:05)
[2020-04-12] MEDS: PIPERACILLIN-TAZOBACTAM 3.375 GM in SODIUM CHLORIDE 0.9% 100 ML IVPB SCH ×4 (00:27→23:57)
[2020-04-12] MEDS: ACETAMINOPHEN TAB 325 MG TAB PO PRN ×3 (00:31→20:36)
[2020-04-12] MEDS: LEVOTHYROXINE 112 MCG TAB PO SCH (05:29)
[2020-04-12] MEDS: IPRATROPIUM-ALBUTEROL 3 ML NEB INHALATION SCH ×3 (07:28→19:31)
[2020-04-12] MEDS: SYMBICORT 160-4.5 MCG INHALER INHALATION SCH ×2 (07:29→19:31)
[2020-04-12] MEDS ORDERED: DILTIAZEM DRIP BOLUS FROM BAG 1 MG SOLN IV STA (07:49)
[2020-04-12] MEDS ORDERED: DILTIAZEM 125 MG in SODIUM CHLORIDE 0.9% 100 ML IV SCH (08:00)
[2020-04-12 08:02] LABS: Basophils % (A) 0 %; Eosinophils # (A) 0.1 k/uL (0-0.7); Eosinophils % (A) 1 %; HCT 33.2 % (34.0-46.0); HGB 10.3 gm/dL (11.4-16.0); Lymphocytes # (A) 1.2 k/uL (1.0-4.8); Lymphocytes % (A) 20 %; MCH 28.3 pg (25.0-35.0); MCHC 31.2 g/dL (31.0-37.0); MCV 90.7 fL (80.0-100.0); Mean Platelet Volume 7.5; Monocytes # (A) 0.5 k/uL (0-1.0); Monocytes % (A) 7 %; Neutrophils # (A) 4.3 k/uL (1.3-7.7); Neutrophils % (A) 70 %; Platelet Count 298 k/uL (150-450); RBC 3.66 m/uL (3.80-5.40); WBC 6.2 k/uL (3.8-10.6)
[2020-04-12 08:35] LABS: African American GFR (CKD) >90 (>60 ml/min/1.73 sqM); Anion Gap 7 mmol/L; Blood Urea Nitrogen <2 mg/dL (7-17); Calcium 8.9 mg/dL (8.4-10.2); Carbon Dioxide 27 mmol/L (22-30); Chloride 104 mmol/L (98-107); Glucose 101 mg/dL (74-99); Non-African American GFR(CKD) >90 (>60 ml/min/1.73 sqM); Potassium 3.9 mmol/L (3.5-5.1); Sodium 138 mmol/L (137-145)
[2020-04-12] MEDS: CITALOPRAM HYDROBROMIDE 20 MG TAB PO SCH (09:02)
[2020-04-12] MEDS: PANTOPRAZOLE 40 MG TABLET PO SCH (09:02)
--- NOTE | 2020-04-12 10:40 | PN ---
PROGRESS NOTE PULMONARY/CRITICAL CARE PROGRESS NOTE: DATE OF SERVICE: 04/12/2020 This is a 60-year-old female who we saw yesterday in consultation. She was found to have a lung mass. We were planning to do bronchoscopy with endobronchial biopsies and transbronchial needle aspirations of the subcarinal nodes tomorrow. Unfortunately, today, she developed atrial fibrillation with RVR. She is being transferred from the 4th floor to the 3rd floor. Anyway, obviously that takes priority. We will have to delay or cancel the procedure. She was found to have a right-sided lung mass with significant mediastinal and subcarinal adenopathy. We think the diagnosis is either lung cancer or lymphoma. She apparently had a low-dose CT scan done late last year which was normal. She also has postobstructive pneumonia, probable COPD, mild asthma, GERD, hypothyroidism, and probable anorexia/cachexia syndrome of malignancy. PHYSICAL EXAMINATION: VITAL SIGNS: Current vital signs are reviewed. Temperature is 98.2, heart rate 120, respiratory rate 18, blood pressure 132/72, mean 92, saturations are 93% on room air. Appears in no acute distress. HEENT: Examination is grossly unremarkable. NECK: Supple. Full range of motion. No adenopathy. Neck veins are flat. CARDIOVASCULAR: Examination reveals a regular rhythm and rate. Heart rate 120 to 125 beats per minute. She is in atrial fibrillation. No murmur. Heart sounds are distant. LUNGS: Reveal diminished breath sounds on the right side. A few scattered rhonchi. No wheezes or crackles. ABDOMEN: Soft. Bowel sounds are heard. EXTREMITIES: Intact. No cyanosis, clubbing, or edema. SKIN: Without rash. NEUROLOGIC: Examination is nonfocal. LABS: Reviewed. White count 6.2, hemoglobin 10.3, hematocrit 33.2, platelet count 298,000. Sodium, potassium, chloride, CO2 all normal. Anion gap is normal. BUN and creatinine were less than 2 and 0.49 respectively. The rest of the labs are reviewed. Micro is currently pending or negative. IMAGING: No new x-rays to report. ASSESSMENT: 1. Right-sided lung mass with significant mediastinal and subcarinal adenopathy, consistent with either lung cancer and/or lymphoma. 2. Probable/possible postobstructive pneumonitis. 3. History of mild asthma. 4. Rule out chronic obstructive pulmonary disease. 5. History of gastroesophageal reflux disease. 6. Hypothyroidism. 7. 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 8. Chronic tobacco use and nicotine addiction. PLAN: Obviously, the patient's atrial fibrillation and RVR will have to be dealt with first. She is to be started on Cardizem and probably heparin. The patient is going to be transferred down to the 3rd floor. We will cancel the bronchoscopy for now. No additional recommendations are made. We will have to wait until the patient is more stable. Additional recommendations and suggestions are forthcoming. We did explain that to the patient today. MMODL / IJN: [id number] /
--- NOTE | 2020-04-12 11:58 | P.CRDCN ---
<India Pena A - Last Filed: 04/12/20 11:54> History of Present Illness Consult date: 04/12/20 Chief complaint: new afib History of present illness: CHIEF COMPLAINT: A. fib HISTORY OF PRESENT ILLNESS: 60-year-old female who originally presented to the emergency room with a chief complaint of abdominal pain. She was scheduled to undergo a cholecystectomy with Dr. Moore. However, she was complaining of shortness of breath and underwent a CTA that revealed a right upper lobe mass with large mediastinal mass consistent with adenopathy. Her surgery was canceled and pulmonary was consulted to evaluate the patient. Patient was scheduled for a bronchoscopy with biopsy today. However, the patient went into A. fib with RVR this morning. She was transferred to the selective care unit and cardiology was consulted further evaluation. The patient was started on a Cardizem drip after receiving a Cardizem bolus. Shortly after the patient converted to sinus rhythm with a rate in the 70s. Patient examined this morning at the bedside. She denies chest pain or pressure. She denies a previous history of A. fib. She states she saw a philosophy and religion instructor about a year ago due to an episode of chest pain. She states she had a stress test performed at that time which was negative and has not followed up with a philosophy and religion instructor since that time. Patient reports continued nicotine use and states she was smoking about 3 cigar ettes a day prior to coming to the hospital. DIAGNOSTICS: EKG reveals atrial fibrillation with RVR. Heart rate 119 Chest xray mediastinal and bronchial adenopathy. Pleural effusion and pulmonary consolidation in the right lower lobe. No heart failure seen. Laboratory data: W BC 6.2. Hemoglobin 10.3. Platelet count 298. Sodium 138. Potassium 3.9. BUN 2. Creatinine 0.49. Lactic acid 1.1. Current home cardiac medications include: none REVIEW OF SYSTEMS: CONSTITUTIONAL: Denies fever or chills. HEENT: Denies blurred vision, vision changes, or eye pain. Denies hemoptysis CARDIOVASCULAR: Denies chest pain, orthopnea, PND or palpitations RESPIRATORY: Reports mild shortness of breath. GASTROINTESTINAL: Denies abdominal pain. Denies nausea or vomiting. HEMATOLOGIC: Denies bleeding disorders. GENITOURINARY: Denies any blood in urine. SKIN: Denies pruitis. Denies rash. PHYSICAL EXAM: VITAL SIGNS: Reviewed. GENERAL: Well-developed in no acute distress. HEENT: Head is normocephalic. Pupils are equal, round. Sclerae anicteric. Mucous membranes of the mouth are moist. Neck supple. No JVD or thyromegaly LUNGS: Respirations even and unlabored. Lungs essentially clear to auscultation bilaterally. HEART: Regular rate and rhythm. S1 and S2 heard. ABDOMEN: Soft. Nondistended. Positive bowel sounds. EXTREMITIES: Normal range of motion. No clubbing or cyanosis. Peripheral pulses intact. No lower extremity edema NEUROLOGIC: Awake and alert. Oriented x 3. ASSESSMENT: 1. New-onset atrial fibrillation, paroxysmal, since converted to sinus rhythm 2. Lung mass with adenopathy, suspicious for malignancy 3. Nicotine dependence, patient reports smoking 3 cigarettes a day PLAN: -Discontinue Cardizem drip -Check TSH -Obtain echocardiogram -Begin Toprol 12.5mg daily -Patient does not require anticoagulation. She has converted back to SR. Additionally, she is low risk as she does not have any comorbidities such as hypertension or diabetes -Patient cleared from a cardiac standpoint to undergo bronch. Discussed with pulmonary team. Will defer timing of bronch to Dr. Shafer. Nurse practitioner note has been reviewed by physician. Signing provider agrees with the documented findings, assessment, and plan of care. Past Medical History Past Medical History: Asthma, GERD/Reflux, Thyroid Disorder Additional Past Medical History / Comment(s): EPIGASTRIC PAIN History of Any Multi-Drug Resistant Organisms: None Reported Past Surgical History: Tonsillectomy Additional Past Surgical History / Comment(s): VOCAL CORD NODULE REMOVED. COLONOSCOPY. BILAT CATARACT REMOVAL WITH LENS IMPLANT. EGD Past Anesthesia/Blood Transfusion Reactions: No Reported Reaction Past Psychological History: Depression Smoking Status: Current every day smoker Past Alcohol Use History: None Reported Additional Past Alcohol Use History / Comment(s): < 1PPD SINCE AGE 20-TRYING TO QUIT Past Drug Use History: None Reported - Past Family History Mother Family Medical History: Cancer Brother(s) Family Medical History: Cancer Medications and Allergies Home Medications Medication Instructions Recorded Confirmed Type Citalopram Hydrobromide 20 mg PO DAILY 07/01/14 04/09/20 History [Citalopram HBr] Levothyroxine Sodium [Synthroid] 112 mcg PO DAILY 07/01/14 04/09/20 History Albuterol Sulfate [Albuterol 2 puff PO RT-QID PRN 03/10/20 04/09/20 History Sulfate Hfa] Ondansetron Odt [Zofran Odt] 4 mg PO Q8HR PRN #30 tab 04/01/20 04/09/20 Rx Pantoprazole Sodium [Protonix] 40 mg PO BID #30 tablet. 04/01/20 04/09/20 Rx Umeclidinium Brm/Vilanterol Tr 1 puff INHALATION RT-DAILY PRN 04/09/20 04/09/20 History [Anoro Ellipta 62.5-25 Mcg INH] Allergies Allergy/AdvReac Type Severity Reaction Status Date / Time erythromycin base Allergy Nausea & Verified 04/09/20 18:54 [Erythromycin Base] Vomiting, ABD. PAIN codeine AdvReac MIGRAINES Verified 04/09/20 18:53 Physical Exam Vitals: Vital Signs Temp Pulse Pulse Resp BP Pulse Ox 04/12/20 09:01 112 H 18 132/72 93 L 04/12/20 07:38 120 H 04/12/20 07:29 120 H 04/12/20 06:54 98.2 F 103 H 16 136/86 97 04/12/20 04:00 15 04/12/20 00:18 98.1 F 86 15 158/78 98 04/11/20 23:27 15 04/11/20 20:48 88 04/11/20 20:34 88 04/11/20 20:00 88 15 04/11/20 19:49 98.0 F 106 H 15 145/81 96 04/11/20 15:00 98.1 F 93 18 142/74 95 04/11/20 13:04 86 04/11/20 12:51 86 Intake and Output 04/11/20 04/12/20 04/12/20 22:59 06:59 14:59 Intake Total 100 Balance 100 Intake: Oral 100 Other: Voiding Method Toilet # Voids 1 Results 04/12/20 07:31 04/12/20 07:31 CBC 04/12/20 Range/Units 07:31 WBC 6.2 (3.8-10.6) k/uL RBC 3.66 L (3.80-5.40) m/uL Hgb 10.3 L (11.4-16.0) gm/dL Hct 33.2 L (34.0-46.0) % Plt Count 298 (150-450) k/uL Comprehensive Metabolic Panel 04/12/20 Range/Units 07:31 Sodium 138 (137-145) mmol/L Potassium 3.9 (3.5-5.1) mmol/L Chloride 104 (98-107) mmol/L Carbon Dioxide 27 (22-30) mmol/L BUN <2 L (7-17) mg/dL Creatinine 0.49 L (0.52-1.04) mg/dL Glucose 101 H (74-99) mg/dL Calcium 8.9 (8.4-10.2) mg/dL Current Medications Generic Name Dose Route Start Last Admin Trade Name Freq PRN Reason Stop Dose Admin Acetaminophen 650 mg 04/09/20 15:30 04/12/20 09:03 Tylenol Tab PO 650 mg Q6HR PRN Administration Mild Pain or Fever > 100.5 Albuterol/Ipratropium 3 ml 04/10/20 20:00 04/12/20 07:28 Duoneb 0.5 Mg-3 Mg/3 Ml Soln INHALATION 3 ml RT-TID SEBASTIAN Administration Albuterol/Ipratropium 3 ml 04/10/20 15:12 Duoneb 0.5 Mg-3 Mg/3 Ml Soln INHALATION RT-TID PRN Shortness Of Breath Or Wheezing Budesonide/Formoterol Fumarate 2 puff 04/10/20 20:00 04/12/20 07:29 Symbicort 160-4.5 Mcg Inhaler INHALATION 2 puff RT-BID SEBASTIAN Administration Citalopram Hydrobromide 20 mg 04/11/20 09:00 04/12/20 09:02 Celexa PO 20 mg DAILY SEBASTIAN Administration Hydromorphone HCl 1 mg 04/09/20 15:30 Dilaudid IVP Q3HR PRN Severe Pain Sodium Chloride 1,000 mls @ 50 mls/hr 04/09/20 15:30 04/11/20 16:05 Saline 0.9% IV 50 mls/hr .Q20H SEBASTIAN Administration Piperacillin Sod/Tazobactam 100 mls @ 25 mls/hr 04/10/20 16:00 04/12/20 09:03 Sod 3.375 gm/ Sodium Chloride IVPB 25 mls/hr Q8HR SEBASTIAN Administration Diltiazem HCl 125 mg/ Sodium 125 mls @ 5 mls/hr 04/12/20 08:00 04/12/20 09:04 Chloride IV 5 mg/hr .Q24H SEBASTIAN 5 mls/hr Administration 5 MG/HR Levothyroxine Sodium 112 mcg 04/11/20 06:30 04/12/20 05:29 Synthroid PO 112 mcg DAILY@0630 SEBASTIAN Administration Lorazepam 0.5 mg 04/09/20 17:24 Ativan PO Q4HR PRN Anxiety Naloxone HCl 0.2 mg 04/09/20 15:30 Narcan IV Q2M PRN Opioid Reversal Ondansetron HCl 4 mg 04/09/20 15:30 Zofran IVP Q8HR PRN Nausea And Vomiting Pantoprazole Sodium 40 mg 04/10/20 07:30 04/12/20 09:02 Protonix PO 40 mg AC-BRKFST SEBASTIAN Administration Temazepam 15 mg 04/09/20 17:24 Restoril PO HS PRN Insomnia Intake and Output 04/11/20 04/12/20 04/12/20 22:59 06:59 14:59 Intake Total 100 Balance 100 Intake: Oral 100 Other: Voiding Method Toilet # Voids 1 04/12/20 07:31 04/12/20 07:31 <Richar Reddy R - Last Filed: 04/12/20 12:01> Physical Exam Vitals: Vital Signs Temp Pulse Pulse Resp BP Pulse Ox 04/12/20 09:01 112 H 18 132/72 93 L 04/12/20 07:38 120 H 04/12/20 07:29 120 H 04/12/20 06:54 98.2 F 103 H 16 136/86 97 04/12/20 04:00 15 04/12/20 00:18 98.1 F 86 15 158/78 98 04/11/20 23:27 15 04/11/20 20:48 88 04/11/20 20:34 88 04/11/20 20:00 88 15 04/11/20 19:49 98.0 F 106 H 15 145/81 96 04/11/20 15:00 98.1 F 93 18 142/74 95 04/11/20 13:04 86 04/11/20 12:51 86 Intake and Output 04/11/20 04/12/20 04/12/20 22:59 06:59 14:59 Intake Total 109.083 Balance 109.083 Intake: Intake, IV Titration 9.083 Amount Diltiazem 125 mg In 9.083 Sodium Chloride 0.9% 100 ml @ 5 MG/HR 5 mls/hr IV .Q24H [facility] Rx#:[id number] Oral 100 Other: Voiding Method Toilet # Voids 1 Results 04/12/20 07:31 04/12/20 07:31 CBC 04/12/20 Range/Units 07:31 WBC 6.2 (3.8-10.6) k/uL RBC 3.66 L (3.80-5.40) m/uL Hgb 10.3 L (11.4-16.0) gm/dL Hct 33.2 L (34.0-46.0) % Plt Count 298 (150-450) k/uL Comprehensive Metabolic Panel 04/12/20 Range/Units 07:31 Sodium 138 (137-145) mmol/L Potassium 3.9 (3.5-5.1) mmol/L Chloride 104 (98-107) mmol/L Carbon Dioxide 27 (22-30) mmol/L BUN <2 L (7-17) mg/dL Creatinine 0.49 L (0.52-1.04) mg/dL Glucose 101 H (74-99) mg/dL Calcium 8.9 (8.4-10.2) mg/dL Current Medications Generic Name Dose Route Start Last Admin Trade Name Freq PRN Reason Stop Dose Admin Acetaminophen 650 mg 04/09/20 15:30 04/12/20 09:03 Tylenol Tab PO 650 mg Q6HR PRN Administration Mild Pain or Fever > 100.5 Albuterol/Ipratropium 3 ml 04/10/20 20:00 04/12/20 07:28 Duoneb 0.5 Mg-3 Mg/3 Ml Soln INHALATION 3 ml RT-TID SEBASTIAN Administration Albuterol/Ipratropium 3 ml 04/10/20 15:12 Duoneb 0.5 Mg-3 Mg/3 Ml Soln INHALATION RT-TID PRN Shortness Of Breath Or Wheezing Budesonide/Formoterol Fumarate 2 puff 04/10/20 20:00 04/12/20 07:29 Symbicort 160-4.5 Mcg Inhaler INHALATION 2 puff RT-BID SEBASTIAN Administration Citalopram Hydrobromide 20 mg 04/11/20 09:00 04/12/20 09:02 Celexa PO 20 mg DAILY SEBASTIAN Administration Hydromorphone HCl 1 mg 04/09/20 15:30 Dilaudid IVP Q3HR PRN Severe Pain Sodium Chloride 1,000 mls @ 50 mls/hr 04/09/20 15:30 04/11/20 16:05 Saline 0.9% IV 50 mls/hr .Q20H SEBASTIAN Administration Piperacillin Sod/Tazobactam 100 mls @ 25 mls/hr 04/10/20 16:00 04/12/20 09:03 Sod 3.375 gm/ Sodium Chloride IVPB 25 mls/hr Q8HR SEBASTIAN Administration Levothyroxine Sodium 112 mcg 04/11/20 06:30 04/12/20 05:29 Synthroid PO 112 mcg DAILY@0630 SEBASTIAN Administration Lorazepam 0.5 mg 04/09/20 17:24 Ativan PO Q4HR PRN Anxiety Metoprolol Succinate 12.5 mg 04/12/20 11:45 Toprol Xl PO DAILY SEBASTIAN Naloxone HCl 0.2 mg 04/09/20 15:30 Narcan IV Q2M PRN Opioid Reversal Ondansetron HCl 4 mg 04/09/20 15:30 Zofran IVP Q8HR PRN Nausea And Vomiting Pantoprazole Sodium 40 mg 04/10/20 07:30 04/12/20 09:02 Protonix PO 40 mg AC-BRKFST SEBASTIAN Administration Temazepam 15 mg 04/09/20 17:24 Restoril PO HS PRN Insomnia Intake and Output 04/11/20 04/12/20 04/12/20 22:59 06:59 14:59 Intake Total 109.083 Balance 109.083 Intake: Intake, IV Titration 9.083 Amount Diltiazem 125 mg In 9.083 Sodium Chloride 0.9% 100 ml @ 5 MG/HR 5 mls/hr IV .Q24H [facility] Rx#:[id number] Oral 100 Other: Voiding Method Toilet # Voids 1 04/12/20 07:31 04/12/20 07:31
--- NOTE | 2020-04-12 12:45 | ECHOF ---
Referral Reason:afib MEASUREMENTS -------- HEIGHT: 170.2 cm WEIGHT: 54.4 kg BP: RVIDd: 1.6 cm (< 3.3) IVSd: 1.1 cm (0.6 - 1.1) LVIDd: 3.4 cm (3.9 - 5.3) LVPWd: 1.3 cm (0.6 - 1.1) IVSs: 1.7 cm LVIDs: 1.6 cm LVPWs: 2.1 cm Ao Diam: 2.9 cm (2.0 - 3.7) AV Cusp: 1.7 cm (1.5 - 2.6) LA Diam: 2.0 cm (2.7 - 3.8) MV EXCURSION: 13.666 mm (> 18.000) MV EF SLOPE: 108 mm/s (70 - 150) EPSS: 0.5 cm MV E Luis: 0.81 m/s MV DecT: 166 ms MV A Luis: 0.60 m/s MV E/A Ratio: 1.35 RAP: 5.00 mmHg RVSP: 27.88 mmHg TAPSE: 20.35 mm FINDINGS -------- This was a technically good study. The left ventricular size is normal. There is mild concentric left ventricular hypertrophy. Overa ll left ventricular systolic function is low-normal with, an EF between 50 - 55 %. The right ventricle is normal in size. The left atrial size is normal. The right atrial size is normal. Interatrial and interventricular septum intact. The aortic valve is trileaflet and appears structurally normal. The mitral valve is normal. The mitral valve leaflets are mildly thickened. There is trace mitral regurgitation. The tricuspid valve appears structurally normal. Mild tricuspid regurgitation present. Right vent ricular systolic pressure is normal at < 35 mmHg. There is no pulmonic regurgitation present. The aortic root size is normal. Normal inferior vena cava with normal inspiratory collapse consistent with estimated right atrial pre ssure of 5 mmHg. There is a small to moderate generalized pericardial effusion present. CONCLUSIONS -------- 1. The left ventricular size is normal. 2. There is mild concentric left ventricular hypertrophy. 3. Overall left ventricular systolic function is low-normal with, an EF between 50 - 55 %. 4. The mitral valve leaflets are mildly thickened. 5. There is trace mitral regurgitation. 6. Mild tricuspid regurgitation present. 7. There is a small to moderate generalized pericardial effusion present. PROCESS DESIGN CHEMICAL ENGINEER: Jacki Tay RDCS
--- NOTE | 2020-04-12 13:21 | P.PN ---
Subjective Progress Note Date: 04/12/20 CHIEF COMPLAINT: Right upper quadrant abdominal pain HISTORY OF PRESENT ILLNESS: Right quadrant abdominal pain with previous ultrasound showing a possible stone or gallbladder wall polyp. Patient initiall y scheduled for an elective laparoscopic cholecystectomy. Cholecystectomy has been canceled due to patient's right lung mass. Patient went into atrial fibrillation with rapid ventricular response. She was started on IV Cardizem and switched over to Toprol and cardiology following. Her bronchoscopy has been placed on hold. She reports that her pain is better. She denies any nausea or vomiting. She reports bowel movements. She is afebrile. WBC 11.2 hemoglobin 10.3 PHYSICAL EXAM: VITAL SIGNS: Reviewed. GENERAL: Well-developed in no acute distress. HEENT: No sclera icterus. Extraocular movements grossly intact. Moist buccal mucosa. Head is atraumatic, normocephalic. ABDOMEN: Soft. Nondistended. Nontender. NEUROLOGIC: Alert and oriented. Cranial nerves II through XII grossly intact. ASSESSMENT: 1. Right upper quadrant abdominal pain likely secondary to patient's pleural ef fusion. 2. Right upper lobe lung mass pulmonary is following. Patient is scheduled for bronchoscopy tomorrow PLAN: -Cholecystectomy has been canceled -Continue regular diet Physician [employer] Consultant note has been reviewed by physician. Signing provider agrees with the documented findings, assessment, and plan of care. Objective - Vital Signs Vital signs: Vital Signs Temp 98.2 F 04/12/20 06:54 Pulse 116 H 04/12/20 12:48 Resp 18 04/12/20 09:01 BP 132/72 04/12/20 09:01 Pulse Ox 93 L 04/12/20 09:01 Intake & Output 04/11/20 04/12/20 04/12/20 18:59 06:59 18:59 Intake Total 540 109.083 Balance 540 109.083 Intake: Intake, IV Titration 9.083 Amount Diltiazem 125 mg In 9.083 Sodium Chloride 0.9% 100 ml @ 5 MG/HR 5 mls/hr IV .Q24H [facility] Rx#:[id number] Oral 540 100 Other: Voiding Method Toilet # Voids 2 1 - Labs CBC & Chem 7: 04/12/20 07:31 04/12/20 07:31 Labs: Abnormal Lab Results - Last 24 Hours (Table) 04/12/20 04/12/20 Range/Units 07:31 07:31 RBC 3.66 L (3.80-5.40) m/uL Hgb 10.3 L (11.4-16.0) gm/dL Hct 33.2 L (34.0-46.0) % BUN <2 L (7-17) mg/dL Creatinine 0.49 L (0.52-1.04) mg/dL Glucose 101 H (74-99) mg/dL Microbiology - Last 24 Hours (Table) 04/09/20 16:05 Blood Culture - Preliminary Blood No Growth after 48 hours
--- NOTE | 2020-04-12 14:47 | PN ---
PROGRESS NOTE DATE OF SERVICE: 04/12/2020 This 60-year-old woman is admitted with right-sided chest pain, significant right lung mass lesion as well as mediastinal subcarinal lymphadenopathy. Dr. Shafer following the patient and planning bronchoscopy, but however the patient developed atrial fibrillation with fast ventricular rate last night and the patient was transferred to telemetry. The patient was started on Cardizem drip. After receiving Cardizem bolus and drip, normal sinus rhythm was restored with heart rate in 70s. Patient being closely monitored. The bone scan is negative. A 2D echo with Doppler was done by Cardiology which showed ejection fraction 50-55 percent and minimal valvular abnormalities. There is no history of fever, rigors, chills at this time. Small to moderate pericardial effusion also noted. Past medical history reviewed. REVIEW OF SYSTEMS: CARDIOVASCULAR: As mentioned. RESPIRATORY: As mentioned earlier. GI no nausea or vomiting. : No dysuria. NERVOUS SYSTEM: As mentioned earlier. CURRENT MEDICATIONS: Reviewed and include: 1. Tylenol. 2. DuoNeb. 3. Symbicort. 4. Celexa. 5. Dilaudid. 6. Synthroid. 7. Ativan. 8. Toprol-XL. 9. Narcan. 10.Zofran. 11.Protonix. 12.Zosyn. 13.Restoril. PHYSICAL EXAM: Patient is alert, oriented times three. Pulse is 112. Blood pressure 130/72, respiration 18, temp is normal. Pulse ox 98% on room air. HEENT: Conjunctivae normal. NECK: No JVD. CARDIOVASCULAR: S1, S2 muffled. RESPIRATORY: Breath sounds diminished in the bases. Scattered rhonchi. No crackles. ABDOMEN: Soft, nontender. No mass palpable. LEGS: No edema. No swelling. SKIN: No ulcer, rash or bleeding. NERVOUS SYSTEM: Higher functions as mentioned. Moves all four limbs. LYMPHATICS: No lymph nodes palpable in the neck, axillae or groin. JOINTS no active deforming arthropathy. LABS: WBC 6.2, hemoglobin 10.3, sodium 138, potassium 3.9. ASSESSMENT: 1. Right upper lobe mass lesion with mass lesion with possible mediastinal adenopathy, subcarinal lymphadenopathy, rule out lung cancer or lymphoma. 2. Right pleural effusion loculated. 3. Atrial fibrillation paroxysmal with fast ventricular rate, converted normal sinus rhythm. 4. Possible right lower lobe pneumonia possibly postobstructive and gram-negative. 5. History of recent gallbladder disease, slated for cholecystectomy as an outpatient. 6. Atelectasis in the right lower lobe, possibly. 7. Hyponatremia. 8. Increased WBC. 9. History of asthma. 10.Gastroesophageal reflux disease. 11.History of tonsillectomy. 12.Vocal cord nodule history. 13.History of colonoscopy. 14.History of bilateral cataracts. 15.History of depression. 16.Continued ongoing nicotine dependence. 17.History of recent weight loss. 18.Mild protein calorie malnutrition BMI of 18.8. 19.FULL CODE. RECOMMENDATIONS AND DISCUSSION: Continue current medications, monitoring and symptomatic treatment. Continue the bronchodilators and empiric antibiotics. Otherwise, continue the Cardizem. Closely follow with Cardiology and Pulmonology. Guarded prognosis because of multiple complex medical issues. Further recommendations to follow. MMODL / IJN: [id number] /
[2020-04-12] MEDS: METOPROLOL SUCCINATE (ER) 25 MG TAB.ER.24H PO SCH (17:05)
[2020-04-12] MEDS: SODIUM CHLORIDE 0.9% 1,000 ML IV SCH (17:05)
[2020-04-12] MEDS: LACTATED RINGERS 1,000 ML IV SCH (23:09)
[2020-04-13] MEDS ORDERED: HYDROmorphone 0.5 MG/0.5 ML SYRINGE IVP PRN (06:00)
[2020-04-13] MEDS: LEVOTHYROXINE 112 MCG TAB PO SCH (06:35)
[2020-04-13] MEDS: PANTOPRAZOLE 40 MG TABLET PO SCH (06:35)
[2020-04-13] MEDS: IPRATROPIUM-ALBUTEROL 3 ML NEB INHALATION SCH ×3 (07:28→19:02)
[2020-04-13] MEDS: SYMBICORT 160-4.5 MCG INHALER INHALATION SCH ×2 (07:28→19:02)
[2020-04-13] MEDS: METOPROLOL SUCCINATE (ER) 25 MG TAB.ER.24H PO SCH (08:03)
[2020-04-13] MEDS: CITALOPRAM HYDROBROMIDE 20 MG TAB PO SCH (08:03)
[2020-04-13 08:51] LABS: Basophils % (A) 0 %; Eosinophils # (A) 0.1 k/uL (0-0.7); Eosinophils % (A) 1 %; HCT 30.2 % (34.0-46.0); HGB 9.8 gm/dL (11.4-16.0); Lymphocytes # (A) 0.9 k/uL (1.0-4.8); Lymphocytes % (A) 14 %; MCH 29.2 pg (25.0-35.0); MCHC 32.4 g/dL (31.0-37.0); MCV 90.3 fL (80.0-100.0); Mean Platelet Volume 7.4; Monocytes # (A) 0.3 k/uL (0-1.0); Monocytes % (A) 5 %; Neutrophils # (A) 5.3 k/uL (1.3-7.7); Neutrophils % (A) 79 %; Platelet Count 297 k/uL (150-450); RBC 3.35 m/uL (3.80-5.40); WBC 6.7 k/uL (3.8-10.6)
[2020-04-13] MEDS: SODIUM CHLORIDE 0.9% 1,000 ML IV SCH (08:51)
[2020-04-13] MEDS: PIPERACILLIN-TAZOBACTAM 3.375 GM in SODIUM CHLORIDE 0.9% 100 ML IVPB SCH ×3 (08:52→23:03)
[2020-04-13 08:58] LABS: African American GFR (CKD) >90 (>60 ml/min/1.73 sqM); Anion Gap 8 mmol/L; Blood Urea Nitrogen 2 mg/dL (7-17); Carbon Dioxide 27 mmol/L (22-30); Chloride 102 mmol/L (98-107); Glucose 95 mg/dL (74-99); Non-African American GFR(CKD) >90 (>60 ml/min/1.73 sqM); Potassium 3.6 mmol/L (3.5-5.1); Sodium 137 mmol/L (137-145)
[2020-04-13] MEDS: ONDANSETRON 4 MG/2 ML VIAL IVP PRN ×2 (10:53→20:58)
--- NOTE | 2020-04-13 11:17 | P.PN ---
Subjective Progress Note Date: 04/13/20 Principal diagnosis: Right-sided lung mass with significant mediastinal and subcarinal adenopathy, consistent with either lung cancer or lymphoma 60-year-old female who was admitted on 04/09/2020 when she came into the emergency department for evaluation of severe right upper quadrant abdominal pain radiating to her back, and hypoxemia. Her evaluation with a CT of the chest, abdomen and pelvis revealed evidence of a large hilar mass and a right- sided pleural effusion suspicious for underlying lung cancer. Patient had a normal computed tomography scan of the lungs back in May 2019. We sent the patient consultation, and we were planning to do a bronchoscopy with the biopsy today, however yesterday patient went into the A. fib RVR requiring transfer to selective care telemetry monitoring, and cardiology evaluation. We canceled the procedure. Patient had converted back to sinus rhythm, cardiology evaluated the patient, it was determined that no anticoagulation was needed, echocardiogram was obtained showing mild LVH, EF between 50-55%, trace mitral regurgitation, mild tricuspid regurg, no evidence of pulmonary hypertension, small to moderate generalized pericardial effusion. Patient was also undergoing surgical evaluation for possibility of a stone or gallbladder wall polyp, however no surgical revision was recommended for possibility of gallstone. Today wishing the patient in follow-up, she is awake and alert, no acute distress, she is resting comfortably in bed, she remained in sinus rhythm, no recurrence of A. fib RVR, her vital signs are stable. She is on 2 L of oxygen a pulse ox of 96%, no fever or chills, today's labs have been reviewed. Normal white count of 6.7, hemoglobin of 9.8, electrolytes are within normal limits, BUN of 2 and creatinine 0.52, TSH of 0.603 Objective - Vital Signs Vital signs: Vital Signs Temp 98.4 F 04/13/20 08:00 Pulse 94 04/13/20 08:00 Resp 18 04/13/20 08:00 BP 166/81 04/13/20 08:00 Pulse Ox 95 04/13/20 08:00 Intake & Output 04/12/20 04/13/20 04/13/20 18:59 06:59 18:59 Intake Total 861.083 650 0 Output Total 0 Balance 861.083 650 0 Weight 57.6 kg Intake: Intake, IV Titration 169.083 400 Amount Diltiazem 125 mg In 9.083 Sodium Chloride 0.9% 100 ml @ 5 MG/HR 5 mls/hr IV .Q24H [facility] Rx#:[id number] Piperacillin-Tazobactam 3 100 .375 gm In Sodium Chloride 0.9% 100 ml @ 25 mls/hr IVPB Q8HR [facility] Rx# :[id number] Sodium Chloride 0.9% 1, 60 400 000 ml @ 50 mls/hr IV . Q20H [facility] Rx#:[id number] Oral 692 250 0 Output: Urine 0 Other: Voiding Method Toilet # Voids 1 1 - Exam GENERAL EXAM: Alert, very pleasant, 60-year-old white female, on 2 L of oxygen a pulse ox of 96% comfortable in no apparent distress. HEAD: Normocephalic/atraumatic. EYES: Normal reaction of pupils, equal size. Conjunctiva pink, sclera white. NOSE: Clear with pink turbinates. THROAT: No erythema or exudates. NECK: No masses, no JVD, no thyroid enlargement, no adenopathy. CHEST: No chest wall deformity. Symmetrical expansion. LUNGS: Equal air entry with no crackles, wheeze, rhonchi or dullness. CVS: Regular rate and rhythm, normal S1 and S2, no gallops, no murmurs, no rubs ABDOMEN: Soft, nontender. No hepatosplenomegaly, normal bowel sounds, no guarding or rigidity. EXTREMITIES: No clubbing, no edema, no cyanosis, 2+ pulses and upper and lower extremities. MUSCULOSKELETAL: Muscle strength and tone normal. SPINE: No scoliosis or deformity SKIN: No rashes CENTRAL NERVOUS SYSTEM: Alert and oriented -3. No focal deficits, tone is normal in all 4 extremities. PSYCHIATRIC: Alert and oriented -3. Appropriate affect. Intact judgment and insight. - Labs CBC & Chem 7: 04/13/20 08:19 04/13/20 08:19 Labs: Abnormal Lab Results - Last 24 Hours (Table) 04/13/20 04/13/20 Range/Units 08:19 08:19 RBC 3.35 L (3.80-5.40) m/uL Hgb 9.8 L (11.4-16.0) gm/dL Hct 30.2 L (34.0-46.0) % Lymphocytes # 0.9 L (1.0-4.8) k/uL BUN 2 L (7-17) mg/dL Microbiology - Last 24 Hours (Table) 04/09/20 16:05 Blood Culture - Preliminary Blood No Growth after 72 hours Assessment and Plan Plan: Assessment: #1. Right-sided lung mass with significant mediastinal and subcarinal adenopathy, consistent with either lung cancer and/or lymphoma #2. Probable postobstructive pneumonitis #3. History of mild asthma #4. Rule out chronic obstructive pulmonary disease #5. History of gastroesophageal reflux disease #6. Hypothyroidism #7. 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 Chronic tobacco use and nicotine addiction #9. Episode of A. fib with RVR yesterday, back in sinus rhythm #10. Chronic tobacco use and nicotine addiction Plan: Patient is back in sinus rhythm, remained in sinus rhythm overnight, echocardiogram has been noted, cardiology recommendations have been noted, we will place the patient on the schedule for bronchoscopy with biopsies for tomorrow, this will be done in the OR, patient will need to be intubated for the procedure. Nothing by mouth after midnight, obtain consents for bronchoscopy with biopsies, and discussed the plan with the patient, and she is agreeable to proceed I performed a history & physical examination of the patient and discussed their management with my nurse practitioner, Viky Rasheed. I reviewed the nurse practitioner's note and agree with the documented findings and plan of care. Lung sounds are positive for clear breath sounds. The findings and the impression was discussed with the patient. I attest to the documentation by the nurse practitioner. Time with Patient: Less than 30
[2020-04-13] MEDS: ACETAMINOPHEN TAB 325 MG TAB PO PRN (12:08)
--- NOTE | 2020-04-13 12:39 | P.PN ---
Subjective Progress Note Date: 04/13/20 CHIEF COMPLAINT: Right upper quadrant abdominal pain HISTORY OF PRESENT ILLNESS: Right quadrant abdominal pain with previous ultrasound showing a possible stone or gallbladder wall polyp. Patient initiall y scheduled for an elective laparoscopic cholecystectomy. Cholecystectomy has been canceled due to patient's right lung mass. Patient went into atrial fibrillation with rapid ventricular response. She was started on IV Cardizem and switched over to Toprol and cardiology following. She is return to normal sinus rhythm. Her bronchoscopy has been placed on hold. She reports that her pain is better. She denies any nausea or vomiting. She reports bowel movements. She is afebrile. WBC 11.2 hemoglobin 10.3 PHYSICAL EXAM: VITAL SIGNS: Reviewed. GENERAL: Well-developed in no acute distress. HEENT: No sclera icterus. Extraocular movements grossly intact. Moist buccal mucosa. Head is atraumatic, normocephalic. ABDOMEN: Soft. Nondistended. Nontender. NEUROLOGIC: Alert and oriented. Cranial nerves II through XII grossly intact. ASSESSMENT: 1. Right upper quadrant abdominal pain likely secondary to patient's pleural effusion. 2. Right upper lobe lung mass pulmonary is following. 3. Episode of atrial fibrillation with rapid ventricular response converted back to normal sinus rhythm PLAN: -Cholecystectomy has been canceled -Continue regular diet -Patient scheduled for bronchoscopy tomorrow Physician Radiographer Mammographer note has been reviewed by physician. Signing provider agrees with the documented findings, assessment, and plan of care. Objective - Vital Signs Vital signs: Vital Signs Temp 98.5 F 04/13/20 11:01 Pulse 88 04/13/20 11:20 Resp 16 04/13/20 11:01 BP 156/72 04/13/20 11:01 Pulse Ox 96 04/13/20 11:01 Intake & Output 04/12/20 04/13/20 04/13/20 18:59 06:59 18:59 Intake Total 861.083 650 0 Output Total 0 Balance 861.083 650 0 Weight 57.6 kg Intake: Intake, IV Titration 169.083 400 Amount Diltiazem 125 mg In 9.083 Sodium Chloride 0.9% 100 ml @ 5 MG/HR 5 mls/hr IV .Q24H [facility] Rx#:[id number] Piperacillin-Tazobactam 3 100 .375 gm In Sodium Chloride 0.9% 100 ml @ 25 mls/hr IVPB Q8HR [facility] Rx# :[id number] Sodium Chloride 0.9% 1, 60 400 000 ml @ 50 mls/hr IV . Q20H [facility] Rx#:[id number] Oral 692 250 0 Output: Urine 0 Other: Voiding Method Toilet # Voids 1 1 - Labs CBC & Chem 7: 04/13/20 08:19 04/13/20 08:19 Labs: Abnormal Lab Results - Last 24 Hours (Table) 04/13/20 04/13/20 Range/Units 08:19 08:19 RBC 3.35 L (3.80-5.40) m/uL Hgb 9.8 L (11.4-16.0) gm/dL Hct 30.2 L (34.0-46.0) % Lymphocytes # 0.9 L (1.0-4.8) k/uL BUN 2 L (7-17) mg/dL Microbiology - Last 24 Hours (Table) 04/09/20 16:05 Blood Culture - Preliminary Blood No Growth after 72 hours
--- NOTE | 2020-04-13 13:36 | P.PN ---
<India Pena - Last Filed: 04/13/20 13:35> Subjective Progress Note Date: 04/13/20 CHIEF COMPLAINT: A. fib HISTORY OF PRESENT ILLNESS: Patient examined this morning at the bedside. She denies chest pain or shortness of breath. She remains in SR. PHYSICAL EXAM: VITAL SIGNS: Reviewed. GENERAL: Well-developed in no acute distress. HEENT: Head is normocephalic. Pupils are equal, round. Sclerae anicteric. Mucous membranes of the mouth are moist. Neck supple. No JVD or thyromegaly LUNGS: Respirations even and unlabored. Lungs essentially clear to auscultation bilaterally. HEART: Regular rate and rhythm. S1 and S2 heard. EXTREMITIES: Normal range of motion. No clubbing or cyanosis. Peripheral pulses intact. No lower extremity edema ASSESSMENT: 1. New-onset atrial fibrillation, paroxysmal, since converted to sinus rhythm 2. Lung mass with adenopathy, suspicious for malignancy 3. Nicotine dependence, patient reports smoking 3 cigarettes a day 4. Pericardial effusion PLAN: -Continue Toprol 12.5mg daily -Patient does not require anticoagulation. -Repeat echo in 1 week for pericardial effusion follow up -Patient scheduled for bronch tomorrow with Dr. Shafer Nurse practitioner note has been reviewed by physician. Signing provider agrees with the documented findings, assessment, and plan of care. Objective - Vital Signs Vital signs: Vital Signs Temp 98.5 F 04/13/20 11:01 Pulse 90 04/13/20 11:04 Resp 16 04/13/20 11:01 BP 156/72 04/13/20 11:01 Pulse Ox 96 04/13/20 11:01 Intake & Output 04/12/20 04/13/20 04/13/20 18:59 06:59 18:59 Intake Total 861.083 650 0 Output Total 0 Balance 861.083 650 0 Weight 57.6 kg Intake: Intake, IV Titration 169.083 400 Amount Diltiazem 125 mg In 9.083 Sodium Chloride 0.9% 100 ml @ 5 MG/HR 5 mls/hr IV .Q24H [facility] Rx#:[id number] Piperacillin-Tazobactam 3 100 .375 gm In Sodium Chloride 0.9% 100 ml @ 25 mls/hr IVPB Q8HR [facility] Rx# :[id number] Sodium Chloride 0.9% 1, 60 400 000 ml @ 50 mls/hr IV . Q20H [facility] Rx#:[id number] Oral 692 250 0 Output: Urine 0 Other: Voiding Method Toilet # Voids 1 1 - Labs CBC & Chem 7: 04/13/20 08:19 04/13/20 08:19 Labs: Abnormal Lab Results - Last 24 Hours (Table) 04/13/20 04/13/20 Range/Units 08:19 08:19 RBC 3.35 L (3.80-5.40) m/uL Hgb 9.8 L (11.4-16.0) gm/dL Hct 30.2 L (34.0-46.0) % Lymphocytes # 0.9 L (1.0-4.8) k/uL BUN 2 L (7-17) mg/dL Microbiology - Last 24 Hours (Table) 04/09/20 16:05 Blood Culture - Preliminary Blood No Growth after 72 hours <Hammad Knox - Last Filed: 04/13/20 15:39> Subjective Patient seen and examined and agree with note as above. Patient with paroxysmal atrial fibrillation, currently sinus rhythm. Patient was asymptomatic with A. fib with mild tachycardia. Cardizem drip has been discontinued and we will continue Toprol 12.5 mg daily. She has chads vasc score of 0 with only female being her risk, denies history of stroke, hypertension, heart failure diabetes. Therefore no anticoagulation at this time. Patient does have small to moderate pericardial effusion on echocardiogram. No signs of tamponade clinically or on echo and we will follow this with an echocardiogram in 1 week. No further recommendations from cardiology at this time. Please call with questions or if issues arise. Hammad Knox D.O. Objective - Vital Signs Vital signs: Vital Signs Temp 98.5 F 04/13/20 11:01 Pulse 88 04/13/20 11:20 Resp 16 04/13/20 11:01 BP 156/72 04/13/20 11:01 Pulse Ox 96 04/13/20 11:01 Intake & Output 04/12/20 04/13/20 04/13/20 18:59 06:59 18:59 Intake Total 861.083 650 620 Output Total 0 Balance 861.083 650 620 Weight 57.6 kg Intake: IV 500 Piperacillin-Tazobactam 3 100 .375 gm In Sodium Chloride 0.9% 100 ml @ 25 mls/hr IVPB Q8HR [facility] Rx# :[id number] Sodium Chloride 0.9% 1, 400 000 ml @ 50 mls/hr IV . Q20H [facility] Rx#:[id number] Intake, IV Titration 169.083 400 Amount Diltiazem 125 mg In 9.083 Sodium Chloride 0.9% 100 ml @ 5 MG/HR 5 mls/hr IV .Q24H [facility] Rx#:[id number] Piperacillin-Tazobactam 3 100 .375 gm In Sodium Chloride 0.9% 100 ml @ 25 mls/hr IVPB Q8HR [facility] Rx# :[id number] Sodium Chloride 0.9% 1, 60 400 000 ml @ 50 mls/hr IV . Q20H [facility] Rx#:[id number] Oral 692 250 120 Output: Urine 0 Other: Voiding Method Toilet # Voids 1 1 - Labs CBC & Chem 7: 04/13/20 08:19 04/13/20 08:19 Labs: Abnormal Lab Results - Last 24 Hours (Table) 04/13/20 04/13/20 Range/Units 08:19 08:19 RBC 3.35 L (3.80-5.40) m/uL Hgb 9.8 L (11.4-16.0) gm/dL Hct 30.2 L (34.0-46.0) % Lymphocytes # 0.9 L (1.0-4.8) k/uL BUN 2 L (7-17) mg/dL Microbiology - Last 24 Hours (Table) 04/09/20 16:05 Blood Culture - Preliminary Blood No Growth after 72 hours
--- NOTE | 2020-04-13 19:36 | PN ---
PROGRESS NOTE DATE OF SERVICE: 04/13/2020 This 60-year-old woman who was admitted with right-sided chest pain also had a right lung mass lesion as well as lymphadenopathy. Pulmonary is following the patient closely for possible bronchoscopy. The patient also had paroxysmal atrial fibrillation, which was treated with Cardizem. The patient also complains of some diarrhea, possibly secondary to antibiotics. No chest pain. No palpitations. No fever at this time. PHYSICAL EXAMINATION: Alert and oriented x3. Pulse 99, blood pressure 156/72, respirations 16, temperature 98.4, pulse ox 98% on room air. HEENT: Conjunctivae normal. NECK: No jugular venous distention. CARDIOVASCULAR SYSTEM: S1, S2 muffled. RESPIRATORY SYSTEM: Breath sounds diminished at the bases. A few scattered rhonchi. ABDOMEN: Soft, non-tender. LEGS: No edema. No swelling. NERVOUS SYSTEM: No focal deficit. LABS: WBC 6.6, hemoglobin 9.8, sodium 137. ASSESSMENT: 1. Right lung mass lesion with possible mediastinal and subcarinal lymphadenopathy. Rule out lung cancer, lymphoma. For bronchoscopy by Dr. Shafer. 2. Right pleural effusion, loculated. 3. Atrial fibrillation, paroxysmal, with a fast ventricular rate, converted to normal sinus rhythm. 4. Possible right lower lobe pneumonia, possibly postobstructive or Gram-negative. 5. History of recent gallbladder disease; slated for cholecystectomy as an outpatient. 6. Atelectasis in the right lower lobe possibly. 7. Hyponatremia. 8. Increased white count. 9. History of asthma. 10.Gastroesophageal reflux disease. 11.History of tonsillectomy. 12.Vocal cord nodule history. 13.History of colonoscopy. 14.History of bilateral cataracts. 15.History of depression. 16.Continued ongoing nicotine dependence. 17.History of recent weight loss. 18.Mild protein-calorie malnutrition; body mass index of 18.8. 19.FULL CODE. RECOMMENDATIONS AND DISCUSSION: I recommend to continue current medications, continue to monitor. Symptomatic treatment. Otherwise at this time I recommend to closely follow. Will check C difficile. If there is severe diarrhea, antibiotics could be discontinued. Otherwise, continue to follow with Pulmonary. Guarded prognosis. Further recommendations to follow. MMODL / IJN: [id number] /
[2020-04-13] MEDS: LACTATED RINGERS 1,000 ML IV SCH (20:52)
[2020-04-13] MEDS ORDERED: DILTIAZEM DRIP BOLUS FROM BAG 1 MG SOLN IV ONE (23:14)
[2020-04-14] MEDS ORDERED: DILTIAZEM 125 MG in SODIUM CHLORIDE 0.9% 100 ML IV SCH (03:00)
[2020-04-14] MEDS: SODIUM CHLORIDE 0.9% 1,000 ML IV SCH ×2 (05:08→23:20)
[2020-04-14] MEDS: PANTOPRAZOLE 40 MG TABLET PO SCH (06:00)
[2020-04-14] MEDS: LEVOTHYROXINE 112 MCG TAB PO SCH (06:00)
[2020-04-14] MEDS: IPRATROPIUM-ALBUTEROL 3 ML NEB INHALATION SCH (07:35)
[2020-04-14] MEDS: SYMBICORT 160-4.5 MCG INHALER INHALATION SCH ×2 (07:36→19:23)
[2020-04-14] MEDS: METOPROLOL SUCCINATE (ER) 25 MG TAB.ER.24H PO SCH (08:16)
[2020-04-14] MEDS: CITALOPRAM HYDROBROMIDE 20 MG TAB PO SCH (08:16)
[2020-04-14] MEDS: PIPERACILLIN-TAZOBACTAM 3.375 GM in SODIUM CHLORIDE 0.9% 100 ML IVPB SCH ×3 (08:17→23:14)
--- NOTE | 2020-04-14 10:59 | P.PN ---
Subjective Progress Note Date: 04/14/20 Principal diagnosis: Right-sided lung mass with significant mediastinal and subcarinal adenopathy, consistent with either lung cancer or lymphoma 60-year-old female who was admitted on 04/09/2020 when she came into the emergency department for evaluation of severe right upper quadrant abdominal pain radiating to her back, and hypoxemia. Her evaluation with a CT of the chest, abdomen and pelvis revealed evidence of a large hilar mass and a right- sided pleural effusion suspicious for underlying lung cancer. Patient had a normal computed tomography scan of the lungs back in May 2019. We sent the patient consultation, and we were planning to do a bronchoscopy with the biopsy today, however yesterday patient went into the A. fib RVR requiring transfer to selective care telemetry monitoring, and cardiology evaluation. We canceled the procedure. Patient had converted back to sinus rhythm, cardiology evaluated the patient, it was determined that no anticoagulation was needed, echocardiogram was obtained showing mild LVH, EF between 50-55%, trace mitral regurgitation, mild tricuspid regurg, no evidence of pulmonary hypertension, small to moderate generalized pericardial effusion. Patient was also undergoing surgical evaluation for possibility of a stone or gallbladder wall polyp, however no surgical revision was recommended for possibility of gallstone. Today wishing the patient in follow-up, she is awake and alert, no acute distress, she is resting comfortably in bed, she remained in sinus rhythm, no recurrence of A. fib RVR, her vital signs are stable. She is on 2 L of oxygen a pulse ox of 96%, no fever or chills, today's labs have been reviewed. Normal white count of 6.7, hemoglobin of 9.8, electrolytes are within normal limits, BUN of 2 and creatinine 0.52, TSH of 0.603 On 04/14/2020 patient seen in follow-up on selective care unit, she is resting comfortably in bed, in no acute distress, vital signs have a stable overnight. Remains pulse ox 97%, no cough but the chest pain or hemoptysis, she has been nothing by mouth after midnight for bronchoscopy this afternoon biopsies with Dr. Shafer Objective - Vital Signs Vital signs: Vital Signs Temp 97.9 F 04/14/20 08:00 Pulse 81 04/14/20 08:00 Resp 16 04/14/20 08:00 BP 113/61 04/14/20 08:00 Pulse Ox 97 04/14/20 08:00 Intake & Output 04/13/20 04/14/20 04/14/20 18:59 06:59 18:59 Intake Total 620 240 91.333 Balance 620 240 91.333 Weight 54.2 kg Intake: IV 500 Piperacillin-Tazobactam 3 100 .375 gm In Sodium Chloride 0.9% 100 ml @ 25 mls/hr IVPB Q8HR [facility] Rx# :[id number] Sodium Chloride 0.9% 1, 400 000 ml @ 50 mls/hr IV . Q20H [facility] Rx#:[id number] Intake, IV Titration 91.333 Amount Diltiazem 125 mg In 91.333 Sodium Chloride 0.9% 100 ml @ 10 MG/HR 10 mls/hr IV .[id number] [facility] Rx#: [id number] Oral 120 240 0 Other: Voiding Method Toilet # Voids 1 # Bowel Movements 1 - Exam GENERAL EXAM: Alert, very pleasant, 60-year-old white female, on room air with a pulse ox of 97% comfortable in no apparent distress. HEAD: Normocephalic/atraumatic. EYES: Normal reaction of pupils, equal size. Conjunctiva pink, sclera white. NOSE: Clear with pink turbinates. THROAT: No erythema or exudates. NECK: No masses, no JVD, no thyroid enlargement, no adenopathy. CHEST: No chest wall deformity. Symmetrical expansion. LUNGS: Equal air entry with no crackles, wheeze, rhonchi or dullness. CVS: Regular rate and rhythm, normal S1 and S2, no gallops, no murmurs, no rubs ABDOMEN: Soft, nontender. No hepatosplenomegaly, normal bowel sounds, no guarding or rigidity. EXTREMITIES: No clubbing, no edema, no cyanosis, 2+ pulses and upper and lower extremities. MUSCULOSKELETAL: Muscle strength and tone normal. SPINE: No scoliosis or deformity SKIN: No rashes CENTRAL NERVOUS SYSTEM: Alert and oriented -3. No focal deficits, tone is normal in all 4 extremities. PSYCHIATRIC: Alert and oriented -3. Appropriate affect. Intact judgment and insight. - Labs CBC & Chem 7: 04/13/20 08:19 04/13/20 08:19 Labs: Microbiology - Last 24 Hours (Table) 04/09/20 16:05 Blood Culture - Preliminary Blood No Growth after 96 hours Assessment and Plan Plan: Assessment: #1. Right-sided lung mass with significant mediastinal and subcarinal adenopathy, consistent with either lung cancer and/or lymphoma #2. Probable postobstructive pneumonitis #3. History of mild asthma #4. Rule out chronic obstructive pulmonary disease #5. History of gastroesophageal reflux disease #6. Hypothyroidism #7. 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 Chronic tobacco use and nicotine addiction #9. Episode of A. fib with RVR yesterday, back in sinus rhythm #10. Chronic tobacco use and nicotine addiction Plan: Patient has remained stable over the last 24 hours, vital signs are stable, no acute events overnight, no worsening dyspnea, she is on room air, no complex of chest pain, patient has been nothing by mouth after midnight for bronchoscopy with biopsies today. I performed a history & physical examination of the patient and discussed their management with my nurse practitioner, Viky Rasheed. I reviewed the nurse practitioner's note and agree with the documented findings and plan of care. Lung sounds are positive for clear breath sounds. The findings and the impre ssion was discussed with the patient. I attest to the documentation by the nurse practitioner. Time with Patient: Less than 30
[2020-04-14] MEDS ORDERED: PROPOFOL 10 MG/ML 20 ML VIAL IV ONE (12:04)
[2020-04-14] MEDS ORDERED: SUCCINYLCHOLINE CHLORIDE 100 MG/5 ML SYR IV ONE (12:04)
[2020-04-14] MEDS ORDERED: PHENYLEPHRINE-0.9% NACL SYG 1 MG/10 ML SYRINGE ONE (12:04)
[2020-04-14] MEDS: LACTATED RINGERS 1,000 ML IV SCH ×2 (12:05→21:07)
[2020-04-14] MEDS ORDERED: IV FLUID CONTINUATION 800 ML IV ONE (12:11)
--- NOTE | 2020-04-14 12:26 | P.PN ---
Subjective Progress Note Date: 04/14/20 CHIEF COMPLAINT: Right upper quadrant abdominal pain HISTORY OF PRESENT ILLNESS: Right quadrant abdominal pain with previous ultrasound showing a possible stone or gallbladder wall polyp. Patient initiall y scheduled for an elective laparoscopic cholecystectomy. Cholecystectomy has been canceled due to patient's right lung mass. Patient went back into atrial fibrillation this morning and was restarted on Cardizem drip per cardiology. Has now converted to normal sinus rhythm. Pulmonary service is planning bronchoscopy with biopsies this afternoon. She reports that her pain is better. She denies any nausea or vomiting. She is no longer having diarrhea. C.diff is negative. She is afebrile. PHYSICAL EXAM: VITAL SIGNS: Reviewed. GENERAL: Well-developed in no acute distress. HEENT: No sclera icterus. Extraocular movements grossly intact. Moist buccal mucosa. Head is atraumatic, normocephalic. ABDOMEN: Soft. Nondistended. Nontender. NEUROLOGIC: Alert and oriented. Cranial nerves II through XII grossly intact. ASSESSMENT: 1. Right upper quadrant abdominal pain likely secondary to patient's pleural effusion. 2. Right upper lobe lung mass pulmonary is following. 3. new onset, Paroxysmal atrial fibrillation with rapid ventricular response converted back to normal sinus rhythm PLAN: -Cholecystectomy has been canceled -Continue regular diet -Patient scheduled for bronchoscopy today Physician Media Coordinator note has been reviewed by physician. Signing provider agrees with the documented findings, assessment, and plan of care. Objective - Vital Signs Vital signs: Vital Signs Temp 97.9 F 04/14/20 08:00 Pulse 81 04/14/20 11:41 Resp 16 04/14/20 08:00 BP 113/61 04/14/20 08:00 Pulse Ox 97 04/14/20 08:00 Intake & Output 04/13/20 04/14/20 04/14/20 18:59 06:59 18:59 Intake Total 620 240 91.333 Balance 620 240 91.333 Weight 54.2 kg Intake: IV 500 Piperacillin-Tazobactam 3 100 .375 gm In Sodium Chloride 0.9% 100 ml @ 25 mls/hr IVPB Q8HR [facility] Rx# :[id number] Sodium Chloride 0.9% 1, 400 000 ml @ 50 mls/hr IV . Q20H [facility] Rx#:[id number] Intake, IV Titration 91.333 Amount Diltiazem 125 mg In 91.333 Sodium Chloride 0.9% 100 ml @ 10 MG/HR 10 mls/hr IV .[id number] [facility] Rx#: [id number] Oral 120 240 0 Other: Voiding Method Toilet # Voids 1 # Bowel Movements 1 - Labs CBC & Chem 7: 04/13/20 08:19 04/13/20 08:19 Labs: Microbiology - Last 24 Hours (Table) 04/09/20 16:05 Blood Culture - Preliminary Blood No Growth after 96 hours
[2020-04-14 14:53] VITALS: BMI 18.7
--- NOTE | 2020-04-14 16:44 | P.PN ---
Subjective Progress Note Date: 04/14/20 Principal diagnosis: A. fib HISTORY OF PRESENT ILLNESS: Patient seen and examined. Patient did have an episode of A. fib with RVR last night. She was placed back on a Cardizem drip and spontaneously converted to normal sinus rhythm again. She denies any chest pain or shortness breath. She did undergo bronchoscopy today and was told that her lung mass was likely cancerous. PHYSICAL EXAM: VITAL SIGNS: Reviewed. GENERAL: Well-developed in no acute distress. HEENT: Head is normocephalic. Pupils are equal, round. Sclerae anicteric. Mucous membranes of the mouth are moist. Neck supple. No JVD or thyromegaly LUNGS: Respirations even and unlabored. Lungs essentially clear to auscultation bilaterally. HEART: Regular rate and rhythm. S1 and S2 heard. EXTREMITIES: Normal range of motion. No clubbing or cyanosis. Peripheral pul ses intact. No lower extremity edema ASSESSMENT: 1. New-onset atrial fibrillation, paroxysmal, since converted to sinus rhythm 2. Lung mass with adenopathy, suspicious for malignancy 3. Nicotine dependence, patient reports smoking 3 cigarettes a day 4. Pericardial effusion, small to moderate on most recent echo suspicious for malignancy related. No evidence of tamponade PLAN: -We have increased the Toprol to 50 mg daily. Monitor blood pressure responses patient's blood pressures been somewhat borderline with no history of hypertension previously. -Patient does not require anticoagulation given low CHADSVASC. -Repeat echo in 1 week for pericardial effusion follow up -Await results of bronchoscopy -If patient continues to have multiple episodes of atrial fibrillation, we may consider rhythm control strategy however we did discuss that with everything going on she would like to focus on her lung mass workup and we will defer this for now. Objective - Vital Signs Vital signs: Vital Signs Temp 98.2 F 04/14/20 16:00 Pulse 80 04/14/20 16:00 Resp 16 04/14/20 16:00 BP 136/76 04/14/20 16:00 Pulse Ox 96 04/14/20 16:00 Intake & Output 04/13/20 04/14/20 04/14/20 18:59 06:59 18:59 Intake Total 620 240 741.333 Balance 620 240 741.333 Weight 54.2 kg 54.2 kg Intake: IV 500 650 Piperacillin-Tazobactam 3 100 100 .375 gm In Sodium Chloride 0.9% 100 ml @ 25 mls/hr IVPB Q8HR [facility] Rx# :[id number] Sodium Chloride 0.9% 1, 400 000 ml @ 50 mls/hr IV . Q20H [facility] Rx#:[id number] Intake, IV Titration 91.333 Amount Diltiazem 125 mg In 91.333 Sodium Chloride 0.9% 100 ml @ 10 MG/HR 10 mls/hr IV .[id number] [facility] Rx#: [id number] Oral 120 240 0 Other: Voiding Method Toilet # Voids 1 # Bowel Movements 1 - Labs CBC & Chem 7: 04/13/20 08:19 04/13/20 08:19 Labs: Microbiology - Last 24 Hours (Table) 04/09/20 16:05 Blood Culture - Preliminary Blood No Growth after 96 hours
[2020-04-14] MEDS: ACETAMINOPHEN TAB 325 MG TAB PO PRN (21:11)
--- NOTE | 2020-04-14 22:50 | PN ---
PROGRESS NOTE DATE OF SERVICE: 04/14/2020 This 60-year-old woman who was admitted with significant right-sided chest pain and right-sided lung lesions also had mediastinum adenopathy. Patient underwent bronchoscopy and biopsy by Dr. Kc today. No chest pain. No palpitations. No fever. The patient also had an episode of atrial ablation last night. PHYSICAL EXAMINATION: Alert and oriented x3. Pulse 80, blood pressure 136/76, respirations 16, temperature 98.2, pulse ox 96% on 1 L. HEENT: Conjunctivae normal. NECK: No jugular venous distention. CARDIOVASCULAR SYSTEM: S1, S2 muffled. RESPIRATORY SYSTEM: Breath sounds diminished at the bases. Bilateral scattered rhonchi and crackles. ABDOMEN: Soft, non-tender. LEGS: No edema. No swelling. NERVOUS SYSTEM: No focal deficit. LABS: WBC 6.6, hemoglobin 9.8. C difficile is negative. ASSESSMENT: 1. Right lung mass with possible mediastinal subcarinal lymphadenopathy. Rule out lung cancer or lymphoma. Status post bronchoscopy by Dr. Kc. 2. Right pleural effusion, loculated. 3. Atrial fibrillation, paroxysmal, with a fast ventricular rate, converted to normal sinus rhythm. 4. Possible right lower lobe pneumonia, possibly postobstructive or Gram- negative. 5. History of recent gallbladder disease, slated for cholecystectomy as an outpatient. 6. Atelectasis in the right lower lobe, possibly. 7. Hyponatremia. 8. Increased white count. 9. History of asthma. 10.Gastroesophageal reflux disease. 11.History of tonsillectomy. 12.Vocal cord nodule history. 13.History of colonoscopy. 14.History of bilateral cataracts. 15.History of depression. 16.Continued ongoing nicotine dependence. 17.History of recent weight loss. 18.Mild protein-calorie malnutrition. BMI of 15.8. 19.FULL CODE. RECOMMENDATIONS AND DISCUSSION: I recommend to continue current medications, continue with the monitoring, symptomatic treatment. Await biopsy. Closely follow with Pulmonary. Prognosis is guarded because of multiple complex medical issues. Hematology/oncology evaluation. Further recommendations to follow. MMODL / IJN: [id number] / MTDD
[2020-04-15 01:18] LABS: African American GFR (CKD) >90 (>60 ml/min/1.73 sqM); Anion Gap 3 mmol/L; Blood Urea Nitrogen 4 mg/dL (7-17); Carbon Dioxide 30 mmol/L (22-30); Chloride 100 mmol/L (98-107); Glucose 96 mg/dL (74-99); Magnesium 1.7 mg/dL (1.6-2.3); Non-African American GFR(CKD) >90 (>60 ml/min/1.73 sqM); Sodium 133 mmol/L (137-145)
--- NOTE | 2020-04-15 03:47 | PCN ---
PROCEDURE NOTE PROCEDURE: Bronchoscopy, brushes, washes, endobronchial biopsies, transbronchial biopsies, and transbronchial needle aspirations of the right upper distal right mainstem. PREOPERATIVE DIAGNOSIS: Rule out lung cancer. POSTOP DIAGNOSIS: Rule out lung cancer. OPERATORS: Dr. Shafer, Dr. Sanon and Jose Rasheed. DESCRIPTION OF PROCEDURE: There was informed consent and universal timeout. The procedure took place in the endoscopy room #1. A SHEET [employer] SMITH provided general anesthesia. There was informed consent and universal timeout. After the patient was adequately sedated and being fully monitored and on the effects of general anesthesia on the ventilator, the bronchoscope was inserted through the bronchoscope adapter connected to the endotracheal tube. The left lung was initially evaluated. The left side was normal. That included left upper lobe proper, lingula and left lower lobe. There were significant disease noted on the right side particularly in the right upper lobe, right middle lobe and right lower lobe. There was endobronchial disease. The lesions had a cauliflower look to them. They were quite vascular. Under direct visualization, there was multiple endobronchial biopsies, there was also transbronchial biopsies performed in the distal right mainstem, as well as transbronchial needle aspirations. We did have pathology standing by. They were looking at the slides as we obtained them. Dr. Denton said that we were positive for diagnosis on the first pass on the transbronchial needle aspiration. In addition, washes and brushes were done on those same areas. The patient tolerated the procedure well. There was minimal bleeding. The patient was stable throughout the procedure. She will be recovered. No additional recommendations are made. Will await the final pathology. MMODL / IJN: [id number] / MTDD
[2020-04-15] MEDS: PANTOPRAZOLE 40 MG TABLET PO SCH (05:26)
[2020-04-15] MEDS: METOPROLOL SUCCINATE (ER) 50 MG TAB.ER.24H PO SCH (05:26)
[2020-04-15] MEDS: LEVOTHYROXINE 112 MCG TAB PO SCH (05:27)
[2020-04-15] MEDS: SYMBICORT 160-4.5 MCG INHALER INHALATION SCH ×2 (07:40→19:50)
[2020-04-15] MEDS: CITALOPRAM HYDROBROMIDE 20 MG TAB PO SCH (08:25)
[2020-04-15] MEDS: PIPERACILLIN-TAZOBACTAM 3.375 GM in SODIUM CHLORIDE 0.9% 100 ML IVPB SCH ×3 (08:25→23:07)
[2020-04-15] MEDS ORDERED: DILTIAZEM ORAL 60 MG TAB PO STA (08:52)
--- NOTE | 2020-04-15 09:01 | P.PN ---
Subjective Progress Note Date: 04/15/20 Principal diagnosis: Atrial fibrillation HISTORY OF PRESENT ILLNESS: Patient seen and examined. Patient back in atrial fibrillation this morning. She does feel somewhat weak and tired when she is in A. fib. Heart rates have been going up into the 130s to 150s. PHYSICAL EXAM: VITAL SIGNS: Reviewed. GENERAL: Well-developed in no acute distress. HEENT: Head is normocephalic. Pupils are equal, round. Sclerae anicteric. Mucous membranes of the mouth are moist. Neck supple. No JVD or thyromegaly LUNGS: Respirations even and unlabored. Lungs essentially clear to auscultation bilaterally. HEART: Regular rate and rhythm. S1 and S2 heard. EXTREMITIES: Normal range of motion. No clubbing or cyanosis. Peripheral pulses intact. No lower extremity edema ASSESSMENT: 1. New-onset atrial fibrillation, paroxysmal with RVR 2. Lung mass with adenopathy, suspicious for malignancy, status post bronchoscopy with biopsy 3. Nicotine dependence, patient reports smoking 3 cigarettes a day 4. Pericardial effusion, small to moderate on most recent echo suspicious for malignancy related. No evidence of tamponade PLAN: -She is back in A. fib with RVR. The increased dose of Toprol has not been controlling the heart rate. We will add Cardizem 60 mg one by mouth now for improved heart rate control. We will also start flecainide 50 mg 1 by mouth twice a day for rhythm control. Discussed risks and benefits of antiarrhythmics with patient and patient is agreeable. -Patient does not require anticoagulation given low CHADSVASC. -Repeat echo in 1 week for pericardial effusion follow up -Await results of bronchoscopy Objective - Vital Signs Vital signs: Vital Signs Temp 98.3 F 04/15/20 08:00 Pulse 116 H 04/15/20 08:00 Resp 16 04/15/20 08:00 BP 128/80 04/15/20 08:00 Pulse Ox 93 L 04/15/20 08:00 Intake & Output 04/14/20 04/15/20 04/15/20 18:59 06:59 18:59 Intake Total 741.333 240 100 Balance 741.333 240 100 Weight 54.2 kg 57.8 kg Intake: IV 650 Piperacillin-Tazobactam 3 100 .375 gm In Sodium Chloride 0.9% 100 ml @ 25 mls/hr IVPB Q8HR [facility] Rx# :[id number] Intake, IV Titration 91.333 Amount Diltiazem 125 mg In 91.333 Sodium Chloride 0.9% 100 ml @ 10 MG/HR 10 mls/hr IV .[id number] [facility] Rx#: [id number] Oral 0 240 100 Other: # Voids 1 - Labs CBC & Chem 7: 04/13/20 08:19 04/15/20 00:24 Labs: Abnormal Lab Results - Last 24 Hours (Table) 04/15/20 Range/Units 00:24 Sodium 133 L (137-145) mmol/L BUN 4 L (7-17) mg/dL Microbiology - Last 24 Hours (Table) 04/09/20 16:05 Blood Culture - Preliminary Blood No Growth after 120 hours
[2020-04-15] MEDS: FLECAINIDE 50 MG TAB PO SCH ×2 (09:05→19:37)
--- NOTE | 2020-04-15 09:39 | P.PN ---
Subjective Progress Note Date: 04/15/20 CHIEF COMPLAINT: Right upper quadrant abdominal pain HISTORY OF PRESENT ILLNESS: Right quadrant abdominal pain with previous ultrasound showing a possible stone or gallbladder wall polyp. Patient initiall y scheduled for an elective laparoscopic cholecystectomy. Cholecystectomy has been canceled due to patient's right lung mass. Patient is status post bronchoscopy. She has also gone back into atrial fibrillation with rapid ventricular response. Cardiology has adjusted medications. She reports that her pain is better. She denies any nausea or vomiting. She did have one loose stool this morning. C.diff is negative. She is afebrile. PHYSICAL EXAM: VITAL SIGNS: Reviewed. GENERAL: Well-developed in no acute distress. HEENT: No sclera icterus. Extraocular movements grossly intact. Moist buccal mucosa. Head is atraumatic, normocephalic. ABDOMEN: Soft. Nondistended. Nontender. NEUROLOGIC: Alert and oriented. Cranial nerves II through XII grossly intact. ASSESSMENT: 1. Right upper quadrant abdominal pain likely secondary to patient's pleural effusion and lung mass 2. Right upper lobe lung mass pulmonary is following. 3. new onset, Paroxysmal atrial fibrillation with rapid ventricular response followed by cardiology PLAN: -Elective laparoscopic Cholecystectomy has been canceled -When patient is medically stable laparoscopic cholecystectomy can be rescheduled in the future -Continue regular diet Physician [employer] note has been reviewed by physician. Signing provider agrees with the documented findings, assessment, and plan of care. Objective - Vital Signs Vital signs: Vital Signs Temp 98.3 F 04/15/20 08:00 Pulse 116 H 04/15/20 08:00 Resp 16 04/15/20 08:00 BP 128/80 04/15/20 08:00 Pulse Ox 93 L 04/15/20 08:00 Intake & Output 04/14/20 04/15/20 04/15/20 18:59 06:59 18:59 Intake Total 741.333 240 100 Balance 741.333 240 100 Weight 54.2 kg 57.8 kg Intake: IV 650 Piperacillin-Tazobactam 3 100 .375 gm In Sodium Chloride 0.9% 100 ml @ 25 mls/hr IVPB Q8HR [facility] Rx# :[id number] Intake, IV Titration 91.333 Amount Diltiazem 125 mg In 91.333 Sodium Chloride 0.9% 100 ml @ 10 MG/HR 10 mls/hr IV .[id number] [facility] Rx#: [id number] Oral 0 240 100 Other: # Voids 1 - Labs CBC & Chem 7: 04/13/20 08:19 04/15/20 00:24 Labs: Abnormal Lab Results - Last 24 Hours (Table) 04/15/20 Range/Units 00:24 Sodium 133 L (137-145) mmol/L BUN 4 L (7-17) mg/dL Microbiology - Last 24 Hours (Table) 04/09/20 16:05 Blood Culture - Preliminary Blood No Growth after 120 hours
[2020-04-15 10:32] LABS: Basophils % (A) 0 %; Eosinophils # (A) 0.1 k/uL (0-0.7); Eosinophils % (A) 1 %; HCT 33.1 % (34.0-46.0); HGB 10.4 gm/dL (11.4-16.0); Lymphocytes % (A) 9 %; MCH 28.7 pg (25.0-35.0); MCHC 31.3 g/dL (31.0-37.0); MCV 91.6 fL (80.0-100.0); Mean Platelet Volume 8.1; Monocytes # (A) 0.6 k/uL (0-1.0); Monocytes % (A) 6 %; Neutrophils # (A) 8.5 k/uL (1.3-7.7); Neutrophils % (A) 82 %; Platelet Count 356 k/uL (150-450); RBC 3.61 m/uL (3.80-5.40); RDW 12.9 % (11.5-15.5); Reticulocyte % 1.9 % (0.5-2.0); WBC 10.3 k/uL (3.8-10.6)
--- NOTE | 2020-04-15 10:46 | P.PN ---
Subjective Progress Note Date: 04/15/20 Principal diagnosis: Right-sided lung mass with significant mediastinal and subcarinal adenopathy, consistent with either lung cancer or lymphoma 60-year-old female who was admitted on 04/09/2020 when she came into the emergency department for evaluation of severe right upper quadrant abdominal pain radiating to her back, and hypoxemia. Her evaluation with a CT of the chest, abdomen and pelvis revealed evidence of a large hilar mass and a right- sided pleural effusion suspicious for underlying lung cancer. Patient had a normal computed tomography scan of the lungs back in May 2019. We sent the patient consultation, and we were planning to do a bronchoscopy with the biopsy today, however yesterday patient went into the A. fib RVR requiring transfer to selective care telemetry monitoring, and cardiology evaluation. We canceled the procedure. Patient had converted back to sinus rhythm, cardiology evaluated the patient, it was determined that no anticoagulation was needed, echocardiogram was obtained showing mild LVH, EF between 50-55%, trace mitral regurgitation, mild tricuspid regurg, no evidence of pulmonary hypertension, small to moderate generalized pericardial effusion. Patient was also undergoing surgical evaluation for possibility of a stone or gallbladder wall polyp, however no surgical revision was recommended for possibility of gallstone. Today wishing the patient in follow-up, she is awake and alert, no acute distress, she is resting comfortably in bed, she remained in sinus rhythm, no recurrence of A. fib RVR, her vital signs are stable. She is on 2 L of oxygen a pulse ox of 96%, no fever or chills, today's labs have been reviewed. Normal white count of 6.7, hemoglobin of 9.8, electrolytes are within normal limits, BUN of 2 and creatinine 0.52, TSH of 0.603 On 04/14/2020 patient seen in follow-up on selective care unit, she is resting comfortably in bed, in no acute distress, vital signs have a stable overnight. Remains pulse ox 97%, no cough but the chest pain or hemoptysis, she has been nothing by mouth after midnight for bronchoscopy this afternoon biopsies with Dr. Shafer On 04/15/2020 patient seen in follow-up on selective care unit, yesterday she underwent bronchoscopy with biopsies of the right upper lobe mass, and preliminary pathology was diagnostic for lung cancer, final path is pending. Room air pulse ox is 93%, she appears to be in no acute distress, no wheezing, no cough or congestion, no chest pain, she is afebrile, however she went back into A. fib RVR and currently rate is 130 to 140 BPM. Cardiology is following, and adjusting the patient's anticoagulation and rate control medications. Luis F mead's labs have been reviewed, white blood cell count is 10.3, hemoglobin is 10.4, sodium is 133, rest of electrolytes are within normal limits, B1 is for creatinine 0.52. Objective - Vital Signs Vital signs: Vital Signs Temp 98.3 F 04/15/20 08:00 Pulse 116 H 04/15/20 08:00 Resp 16 04/15/20 08:00 BP 128/80 04/15/20 08:00 Pulse Ox 93 L 04/15/20 08:00 Intake & Output 04/14/20 04/15/20 04/15/20 18:59 06:59 18:59 Intake Total 741.333 240 100 Balance 741.333 240 100 Weight 54.2 kg 57.8 kg Intake: IV 650 Piperacillin-Tazobactam 3 100 .375 gm In Sodium Chloride 0.9% 100 ml @ 25 mls/hr IVPB Q8HR [facility] Rx# :[id number] Intake, IV Titration 91.333 Amount Diltiazem 125 mg In 91.333 Sodium Chloride 0.9% 100 ml @ 10 MG/HR 10 mls/hr IV .[id number] [facility] Rx#: [id number] Oral 0 240 100 Other: # Voids 1 - Exam GENERAL EXAM: Alert, very pleasant, 60-year-old white female, on room air with a pulse ox of 97% comfortable in no apparent distress. HEAD: Normocephalic/atraumatic. EYES: Normal reaction of pupils, equal size. Conjunctiva pink, sclera white. NOSE: Clear with pink turbinates. THROAT: No erythema or exudates. NECK: No masses, no JVD, no thyroid enlargement, no adenopathy. CHEST: No chest wall deformity. Symmetrical expansion. LUNGS: Equal air entry with no crackles, wheeze, rhonchi or dullness. CVS: Irregular rate and rhythm, normal S1 and S2, no gallops, no murmurs, no rubs. Patient is back in atrial fibrillation with RVR, with a rate of 130 to 140 BPM ABDOMEN: Soft, nontender. No hepatosplenomegaly, normal bowel sounds, no guarding or rigidity. EXTREMITIES: No clubbing, no edema, no cyanosis, 2+ pulses and upper and lower extremities. MUSCULOSKELETAL: Muscle strength and tone normal. SPINE: No scoliosis or deformity SKIN: No rashes CENTRAL NERVOUS SYSTEM: Alert and oriented -3. No focal deficits, tone is normal in all 4 extremities. PSYCHIATRIC: Alert and oriented -3. Appropriate affect. Intact judgment and insight. - Labs CBC & Chem 7: 04/15/20 10:13 04/15/20 00:24 Labs: Abnormal Lab Results - Last 24 Hours (Table) 04/15/20 04/15/20 Range/Units 00:24 10:13 RBC 3.61 L (3.80-5.40) m/uL Hgb 10.4 L (11.4-16.0) gm/dL Hct 33.1 L (34.0-46.0) % Neutrophils # 8.5 H (1.3-7.7) k/uL Sodium 133 L (137-145) mmol/L BUN 4 L (7-17) mg/dL Microbiology - Last 24 Hours (Table) 04/09/20 16:05 Blood Culture - Preliminary Blood No Growth after 120 hours Assessment and Plan Plan: Assessment: #1. Right-sided lung mass with significant mediastinal and subcarinal adenopathy, consistent with either lung cancer and/or lymphoma, status post bronchoscopy with biopsies, preliminary path positive for lung cancer, final pathology results are pending #2. Probable postobstructive pneumonitis #3. History of mild asthma #4. Rule out chronic obstructive pulmonary disease #5. History of gastroesophageal reflux disease #6. Hypothyroidism #7. 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 Chronic tobacco use and nicotine addiction #9. Recurrence of A. fib with RVR this morning, patient had a run of A. fib with RVR a few days back, had converted to sinus rhythm #10. Chronic tobacco use and nicotine addiction Plan: From pulmonary perspective patient is stable, she could be considered for discharge home, however she developed recurrence of A. fib with RVR, and she is undergoing further adjustment of her cardiac medications. Staging workup is in progress, and patient is expected to go for MRI of the brain today. She will need outpatient follow-up in regards to the final path result of the right upper lobe mass biopsies. I performed a history & physical examination of the patient and discussed their management with my nurse practitioner, Viky Rasheed. I reviewed the nurse practitioner's note and agree with the documented findings and plan of care. Lung sounds are positive for clear breath sounds. The findings and the impression was discussed with the patient. I attest to the documentation by the nurse practitioner. Time with Patient: Less than 30
--- NOTE | 2020-04-15 11:25 | P.CONS ---
History of Present Illness - Reason for Consult Consult date: 04/14/20 Lung Cancer Requesting physician: Pepe Jain - Chief Complaint SOB - History of Present Illness Ms. Piña is a 60 year old female with history of tobacco abuse who ini tially presented with recurrent quadrant pain. She had an ultrasound last week which showed a possible stone or gallbladder wall polyp. She was initially scheduled for elective laparoscopic ryan. Although she presented to emergency with complaints of increased pain in RUQ and shortness of breath. A 15x8cm mediastinal mass extending from the superior to the diaphragm and encasing the right pulmonary artery. A second 3.2 cm nodule in RUL was also mentioned. Further staging exams with CT abdomen and pelvis as well as bone scan performed without evidence of disease. Bronchoscopy was performed on 04/14 and pathology is currently pending. Because of these findings medical oncology has been asked to further evaluate. To note she did have on 05/[address] lung for cancer screening which did not reveal any abnormal lung masses. Per primary team, during biopsy felt to be malignant which is not surprising given the rapid presentation, size, and appearance on imaging. Will need to a wait for final path for further recs, although with the rapid growth and size, again the concern for a small cell cancer is of in the differential. Review of Systems All systems: negative (HPI) Past Medical History Past Medical History: Asthma, GERD/Reflux, Thyroid Disorder Additional Past Medical History / Comment(s): EPIGASTRIC PAIN History of Any Multi-Drug Resistant Organisms: None Reported Past Surgical History: Tonsillectomy Additional Past Surgical History / Comment(s): VOCAL CORD NODULE REMOVED. COLONOSCOPY. BILAT CATARACT REMOVAL WITH LENS IMPLANT. EGD Past Anesthesia/Blood Transfusion Reactions: No Reported Reaction Past Psychological History: Depression Smoking Status: Current every day smoker Past Alcohol Use History: None Reported Additional Past Alcohol Use History / Comment(s): < 1PPD SINCE AGE 20-TRYING TO QUIT Past Drug Use History: None Reported - Past Family History Mother Family Medical History: Cancer Brother(s) Family Medical History: Cancer Medications and Allergies Home Medications Medication Instructions Recorded Confirmed Type Citalopram Hydrobromide 20 mg PO DAILY 07/01/14 04/09/20 History [Citalopram HBr] Levothyroxine Sodium [Synthroid] 112 mcg PO DAILY 07/01/14 04/09/20 History Albuterol Sulfate [Albuterol 2 puff PO RT-QID PRN 03/10/20 04/09/20 History Sulfate Hfa] Ondansetron Odt [Zofran Odt] 4 mg PO Q8HR PRN #30 tab 04/01/20 04/09/20 Rx Pantoprazole Sodium [Protonix] 40 mg PO BID #30 tablet. 04/01/20 04/09/20 Rx Umeclidinium Brm/Vilanterol Tr 1 puff INHALATION RT-DAILY PRN 04/09/20 04/09/20 History [Anoro Ellipta 62.5-25 Mcg INH] Allergies Allergy/AdvReac Type Severity Reaction Status Date / Time erythromycin base Allergy Nausea & Verified 04/09/20 18:54 [Erythromycin Base] Vomiting, ABD. PAIN codeine AdvReac MIGRAINES Verified 04/09/20 18:53 Physical Exam Vitals: Vital Signs Temp Pulse Pulse Pulse Resp BP Pulse Ox 04/14/20 16:00 98.2 F 80 16 136/76 96 04/14/20 14:25 82 16 126/68 97 04/14/20 14:10 87 18 121/62 88 L 04/14/20 13:45 85 16 132/70 95 04/14/20 13:30 85 16 126/65 95 04/14/20 13:15 89 16 121/61 100 04/14/20 13:00 98.3 F 90 16 117/60 95 04/14/20 11:41 81 04/14/20 08:00 97.9 F 81 16 113/61 97 04/14/20 07:47 80 04/14/20 07:30 86 04/14/20 03:48 98.7 F 115 H 16 111/62 97 04/14/20 00:00 98.6 F 140 H 18 146/87 96 Intake and Output 04/14/20 04/14/20 04/14/20 06:59 14:59 22:59 Intake Total 741.333 Balance 741.333 Intake: IV 650 Piperacillin-Tazobactam 3 100 .375 gm In Sodium Chloride 0.9% 100 ml @ 25 mls/hr IVPB Q8HR [facility] Rx# :[id number] Intake, IV Titration 91.333 Amount Diltiazem 125 mg In 91.333 Sodium Chloride 0.9% 100 ml @ 10 MG/HR 10 mls/hr IV .[id number] [facility] Rx#: [id number] Oral 0 Other: # Voids 1 Weight 54.2 kg 54.2 kg - Constitutional General appearance: cooperative, no acute distress, thin - EENT Eyes: EOMI, PERRLA, poor dentition ENT: NA/AT, normal oropharynx - Neck Neck: normal ROM - Respiratory Respiratory: bilateral: diminished, wheezing - Cardiovascular Rhythm: regular Heart sounds: normal: S1, S2 - Gastrointestinal General gastrointestinal: distended, normal bowel sounds, soft, tenderness - Integumentary Integumentary: pale - Neurologic Neurologic: CNII-XII intact - Musculoskeletal Musculoskeletal: generalized weakness, strength equal bilaterally - Psychiatric Psychiatric: A&O x's 3, appropriate affect, intact judgment & insight Results CBC & Chem 7: 04/15/20 10:13 04/15/20 00:24 Labs: Microbiology - Last 24 Hours (Table) 04/09/20 16:05 Blood Culture - Preliminary Blood No Growth after 120 hours Chest x-ray: report reviewed CT scan - abdomen: report reviewed CT scan - chest: report reviewed CT scan - pelvis: report reviewed Assessment and Plan (1) Mediastinal mass Current Visit: Yes Status: Acute Code(s): J98.59 - OTHER DISEASES OF MEDIASTINUM, NOT ELSEWHERE CLASSIFIED SNOMED Code(s): 46746457 Plan: Assessment and Recommendations: Large Mediatinal mass with extention to diaphragm and encasement of the right pulmonary artery: - Status post Bronch and Biopsy on 04/14/20 - Patient had low dose CT on 05/2019 without abnormalities - Size of mass is 15cm x 8cm which is quite extensive in that time frame and worrisome for underlying malignancy consistent with aggressive lung cancer (?small cell versus primary mediastinal lymphoma), will await pathology - MRI of the brain has also been ordered to complete intial staging We have discussed in detail with patient Physcian Attest: I have completed the full history and physcial and agree with above dictation, dictated as a scribe.
[2020-04-15] MEDS: LACTATED RINGERS 1,000 ML IV SCH ×2 (11:37→23:40)
[2020-04-15] MEDS: ACETAMINOPHEN TAB 325 MG TAB PO PRN ×2 (12:23→19:37)
[2020-04-15 16:52] LABS: Ferritin 201.8 ng/mL (10.0-291.0)
[2020-04-15 16:57] LABS: % Iron Saturation 6.48 (12.00-45.00); Folate, Serum 13.7 ng/mL
--- NOTE | 2020-04-15 17:30 | P.PN ---
Subjective Progress Note Date: 04/15/20 04/15/2020 patient seen in follow-up on selective care unit, yesterday she underwent bronchoscopy with biopsies of the right upper lobe mass, and preliminary pathology was diagnostic for lung cancer, final path is pending. Room air pulse ox is 93%, she appears to be in no acute distress, no wheezing, no cough or congestion, no chest pain, she is afebrile, however she went back into A. fib RVR and currently rate is 130 to 140 BPM. Cardiology is following, and adjusting the patient's anticoagulation and rate control medications. Today's labs have been reviewed, white blood cell count is 10.3, hemoglobin is 10.4, sodium is 133, rest of electrolytes are within normal limits, B1 is for creatinine 0.52. Objective - Vital Signs Vital signs: Vital Signs Temp 98.3 F 04/15/20 08:00 Pulse 116 H 04/15/20 08:00 Resp 16 04/15/20 08:00 BP 128/80 04/15/20 08:00 Pulse Ox 93 L 04/15/20 08:00 Intake & Output 04/14/20 04/15/20 04/15/20 18:59 06:59 18:59 Intake Total 741.333 240 100 Balance 741.333 240 100 Weight 54.2 kg 57.8 kg Intake: IV 650 Piperacillin-Tazobactam 3 100 .375 gm In Sodium Chloride 0.9% 100 ml @ 25 mls/hr IVPB Q8HR [facility] Rx# :[id number] Intake, IV Titration 91.333 Amount Diltiazem 125 mg In 91.333 Sodium Chloride 0.9% 100 ml @ 10 MG/HR 10 mls/hr IV .[id number] [facility] Rx#: [id number] Oral 0 240 100 Other: # Voids 1 - Exam HEAD: Normocephalic/atraumatic. EYES: Normal reaction of pupils, equal size. Conjunctiva pink, sclera white. NOSE: Clear with pink turbinates. THROAT: No erythema or exudates. NECK: No masses, no JVD, no thyroid enlargement, no adenopathy. CHEST: No chest wall deformity. Symmetrical expansion. LUNGS: Equal air entry with no crackles, wheeze, rhonchi or dullness. CVS: Irregular rate and rhythm, normal S1 and S2, no gallops, no murmurs, no rubs. Patient is back in atrial fibrillation with RVR, with a rate of 130 to 140 BPM ABDOMEN: Soft, nontender. No hepatosplenomegaly, normal bowel sounds, no guarding or rigidity. EXTREMITIES: No clubbing, no edema, no cyanosis, 2+ pulses and upper and lower extremities. MUSCULOSKELETAL: Muscle strength and tone normal. - Labs CBC & Chem 7: 04/15/20 10:13 04/15/20 00:24 Labs: Abnormal Lab Results - Last 24 Hours (Table) 04/15/20 Range/Units 00:24 Sodium 133 L (137-145) mmol/L BUN 4 L (7-17) mg/dL Microbiology - Last 24 Hours (Table) 04/09/20 16:05 Blood Culture - Preliminary Blood No Growth after 120 hours Assessment and Plan Assessment: 1. Right-sided lung mass with significant mediastinal and subcarinal adenopathy, consistent with either lung cancer and/or lymphoma, status post bronchoscopy with biopsies, preliminary path positive for lung cancer, final pathology results are pending - Staging workup is in progress; patient to have MRI of the brain today with outpatient follow-up for right upper lobe mass biopsy 2. Probable postobstructive pneumonitis; continue with current dose of IV Zosyn 3. History of mild asthma; not in exacerbation; Symbicort 1604.5 MCG 2 puffs twice a day 4. Chronic persistent depression; Celexa 20 mg daily 5. History of gastroesophageal reflux disease; Protonix 40 mg daily 6. Hypothyroidism; levothyroxin 112 MCG daily 7. Hypertension; metoprolol 50 mg daily; oral Cardizem was added 8. Chronic tobacco use and nicotine addiction; counseling done 9. Recurrence of A. fib with RVR this morning, patient had a run of A. fib with RVR a few days back, had converted to sinus rhythm; cardiology is on board but improved heart rate control; patient is currently on metoprolol, Cardizem and Tambocor DVT prophylaxis; SCDs CODE STATUS; full code Time with Patient: Greater than 30
--- NOTE | 2020-04-15 18:53 | MR ---
EXAMINATION TYPE: MR brain wo/w con DATE OF EXAM: 04/15/2020 COMPARISON: None HISTORY: Lung mass, evaluate for metastatic disease CONTRAST: Standard multiplanar, multisequence MRI departmental protocol utilizing 6 mL intravenous Gadavist rola olinium contrast. Multiplanar multiecho imaging of the brain was performed without and with IV contrast. Ventricles have normal size. There is no mass effect nor midline shift. There is no sign of intracran ial hemorrhage. Man and white matter structures have fairly normal signal pattern. There is no evide nce of cerebral edema. There is a 6 mm focus of increased signal on the T2 and FLAIR images in the br ainstem at the level of the cerebellar peduncles close to the midline. This area appears to enhance s lightly with contrast. There is normal enhancement of the venous sinuses. This brainstem focus has in creased signal on the diffusion images. There is no evidence of retro-orbital mass. The meninges appe ar normal... IMPRESSION: Small focus of abnormal signal in the brainstem as above with slight enhancement. Clinical significan ce is not clear. This would be unusual site for metastatic disease in the absence of other lesions. I think this is most likely related to subacute lacunar infarct. Metastatic disease not excluded sabrina knowles.
[2020-04-16] MEDS: SODIUM CHLORIDE 0.9% 1,000 ML IV SCH ×2 (03:21→15:28)
[2020-04-16] MEDS: PANTOPRAZOLE 40 MG TABLET PO SCH (06:23)
[2020-04-16] MEDS: LEVOTHYROXINE 112 MCG TAB PO SCH (06:23)
[2020-04-16] MEDS: ACETAMINOPHEN TAB 325 MG TAB PO PRN ×2 (06:24→20:07)
[2020-04-16 07:07] LABS: ALT 17 U/L (4-34); AST 23 U/L (14-36); African American GFR (CKD) >90 (>60 ml/min/1.73 sqM); Alkaline Phosphatase 89 U/L (38-126); Anion Gap 8 mmol/L; Blood Urea Nitrogen 3 mg/dL (7-17); Calcium 8.7 mg/dL (8.4-10.2); Carbon Dioxide 30 mmol/L (22-30); Chloride 100 mmol/L (98-107); Glucose 100 mg/dL (74-99); Non-African American GFR(CKD) >90 (>60 ml/min/1.73 sqM); Potassium 3.6 mmol/L (3.5-5.1); Sodium 138 mmol/L (137-145); Total Bilirubin 0.4 mg/dL (0.2-1.3); Total Protein 5.7 g/dL (6.3-8.2)
[2020-04-16] MEDS: SYMBICORT 160-4.5 MCG INHALER INHALATION SCH ×2 (09:05→19:32)
[2020-04-16] MEDS: METOPROLOL SUCCINATE (ER) 50 MG TAB.ER.24H PO SCH (09:44)
[2020-04-16] MEDS: PIPERACILLIN-TAZOBACTAM 3.375 GM in SODIUM CHLORIDE 0.9% 100 ML IVPB SCH ×3 (09:44→22:59)
[2020-04-16] MEDS: FLECAINIDE 50 MG TAB PO SCH ×2 (09:44→20:08)
[2020-04-16] MEDS: CITALOPRAM HYDROBROMIDE 20 MG TAB PO SCH (09:44)
[2020-04-16] MEDS: LACTATED RINGERS 1,000 ML IV SCH ×2 (15:27→22:57)
--- NOTE | 2020-04-16 15:31 | PN ---
PROGRESS NOTE DATE OF SERVICE: 04/16/2020 This a 60-year-old female who was initially evaluated for a right-sided lung mass. She has significant mediastinal and subcarinal adenopathy. We took her to the bronchoscopy suite on . We did multiple subcarinal Hardwick needle biopsies as well as biopsies of other abnormal areas in the right lung. We did endobronchial and transbronchial biopsies. We did transbronchial needle aspirations. We also did brushes and washes. Dr. Denton was in the room. He thought we had enough material for a proper diagnosis, although he did not indicate whether or not this was lung cancer or something else. I suspect probably lung cancer. 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 Anyway, the patient is resting comfortably. We do not have the final pathology as yet. That probably will not be available until Saturday. Other than that she is doing reasonably well. She will need an outpatient PET scan. PHYSICAL EXAMINATION: VITAL SIGNS: Current vital signs are reviewed. Temperature 98, heart rate 87, respiratory rate 19, blood pressure 149/76, mean 100, room air saturation 92%. 2 L saturation 95%. Appears in no acute distress. HEENT: Examination is grossly unremarkable. NECK: Supple. Full range of motion. No adenopathy. Neck veins are flat. CARDIOVASCULAR: Examination reveals regular rhythm rate. Heart rate 87. S1, S2 normal. LUNGS: Reveal diminished breath sounds on the right. There are some coarse rhonchi on the right. No wheezes or crackles. ABDOMEN: Soft. Bowel sounds are heard. EXTREMITIES are intact. No cyanosis, clubbing, or edema. LABS: Reviewed. White count 7.3, hemoglobin 10.4, hematocrit 33.1, platelet count 356,000. Sodium, potassium, chloride and CO2 all normal. Anion gap is normal. BUN and creatinine were 3 and 0.45. The rest of the labs look okay. Microbiology is currently negative. A brain MRI was ordered. It shows small focus of abnormal signal in the brainstem with slight enhancement. Clinical significance is not clear. Certainly this would be an unusual site for metastatic disease. It may relate to subacute lacunar infarct. Current medications are reviewed. ASSESSMENT: 1. Right-sided lung mass with significant mediastinal and subcarinal adenopathy, consistent with likely lung cancer and/or another diagnosis such as lymphoma, status post bronchoscopy with multiple biopsies, and a preliminary path report positive for cancer. 2. Postobstructive pneumonia. 3. Mild asthma. 4. Probable chronic obstructive pulmonary disease. 5. History of gastroesophageal reflux disease. 6. Hypothyroidism. 7. Anorexia/cachexia syndrome of malignancy. 8. Chronic tobacco use and nicotine addiction. 9. History of brief episode of atrial fibrillation with rapid ventricular response. 10.Chronic active tobacco use and nicotine addiction. PLAN: Will await final pathology. From the pulmonary standpoint, the patient could be discharged. We will continue to follow. I did give her my office number. She needs to follow with me in the near future. She will need follow up with Medical Oncology and Radiation therapy. Additional recommendations and suggestions are forthcoming. She will need an outpatient PET scan and a full PFT. Prognosis is guarded. MMODL / IJN: [id number] /
--- NOTE | 2020-04-16 16:46 | P.PN ---
Subjective Progress Note Date: 04/16/20 Principal diagnosis: Right lung mass with significant mediastinal and subcarinal adenopathy/lung cancer Status post bronchoscopy with multiple biopsies Postobstructive pneumonia 04/15/2020 patient seen in follow-up on selective care unit, yesterday she underwent bronchoscopy with biopsies of the right upper lobe mass, and preliminary pathology was diagnostic for lung cancer, final path is pending. Room air pulse ox is 93%, she appears to be in no acute distress, no wheezing, no cough or congestion, no chest pain, she is afebrile, however she went back into A. fib RVR and currently rate is 130 to 140 BPM. Cardiology is following, and adjusting the patient's anticoagulation and rate control medications. Today's labs have been reviewed, white blood cell count is 10.3, hemoglobin is 10.4, sodium is 133, rest of electrolytes are within normal limits, B1 is for creatinine 0.52. 04/16/2020 Patient is seen and evaluated ambulating in the room; denies any complaint of chest pain or shortness of breath; vital signs remained stable Labs are reviewed with a white blood count of 7.3, hemoglobin 10.4 and hematocrit of 33.1, platelet count of 3 56,000 MRI of the brain was done and reviewed and shows small focus of abnormal signal in brain stem with slight enhancement; unusual site for metastatic disease; possible subacute lacunar infarct We will continue current management till final pathology result is available; pulmonary has cleared patient for discharge with need for outpatient PET scan and full PFT; medical and radiation oncology on board; we will order bilateral carotid Doppler and consult neurology for further stroke workup Objective - Vital Signs Vital signs: Vital Signs Temp 98.0 F 04/16/20 03:16 Pulse 94 04/16/20 03:16 Resp 18 04/16/20 03:16 BP 154/81 04/16/20 03:16 Pulse Ox 95 04/16/20 03:16 Intake & Output 04/15/20 04/16/20 04/16/20 18:59 06:59 18:59 Intake Total 280 237 Balance 280 237 Intake: Oral 280 237 Other: Voiding Method Toilet # Voids 2 1 - Exam HEAD: Normocephalic/atraumatic. EYES: Normal reaction of pupils, equal size. Conjunctiva pink, sclera white. NOSE: Clear with pink turbinates. THROAT: No erythema or exudates. NECK: No masses, no JVD, no thyroid enlargement, no adenopathy. CHEST: No chest wall deformity. Symmetrical expansion. LUNGS: Equal air entry with no crackles, wheeze, rhonchi or dullness. CVS: Irregular rate and rhythm, normal S1 and S2, no gallops, no murmurs, no rubs. Patient is back in atrial fibrillation with RVR, with a rate of 130 to 140 BPM ABDOMEN: Soft, nontender. No hepatosplenomegaly, normal bowel sounds, no guarding or rigidity. EXTREMITIES: No clubbing, no edema, no cyanosis, 2+ pulses and upper and lower extremities. MUSCULOSKELETAL: Muscle strength and tone normal. - Labs CBC & Chem 7: 04/15/20 10:13 04/16/20 06:01 Labs: Abnormal Lab Results - Last 24 Hours (Table) 04/15/20 04/15/20 04/15/20 Range/Units 10:13 10:13 10:13 RBC 3.61 L (3.80-5.40) m/uL Hgb 10.4 L (11.4-16.0) gm/dL Hct 33.1 L (34.0-46.0) % Neutrophils # 8.5 H (1.3-7.7) k/uL BUN (7-17) mg/dL Creatinine (0.52-1.04) mg/dL Glucose (74-99) mg/dL Iron 14 L (50-170) ug/dL TIBC 216 L (228-460) ug/dL % Saturation 6.48 L (12.00-45.00) Lactate Dehydrogenase 312 H (120-246) U/L Total Protein (6.3-8.2) g/dL Albumin (3.5-5.0) g/dL Vitamin B12 1495.0 H (200.0-944.0) pg/mL 04/16/20 Range/Units 06:01 RBC (3.80-5.40) m/uL Hgb (11.4-16.0) gm/dL Hct (34.0-46.0) % Neutrophils # (1.3-7.7) k/uL BUN 3 L (7-17) mg/dL Creatinine 0.45 L (0.52-1.04) mg/dL Glucose 100 H (74-99) mg/dL Iron (50-170) ug/dL TIBC (228-460) ug/dL % Saturation (12.00-45.00) Lactate Dehydrogenase (120-246) U/L Total Protein 5.7 L (6.3-8.2) g/dL Albumin 3.0 L (3.5-5.0) g/dL Vitamin B12 (200.0-944.0) pg/mL Microbiology - Last 24 Hours (Table) 04/09/20 16:05 Blood Culture - Final Blood No Growth after 144 hours Assessment and Plan Assessment: 1. Right-sided lung mass with significant mediastinal and subcarinal adenopathy, consistent with either lung cancer and/or lymphoma, status post bronchoscopy with biopsies, preliminary path positive for lung cancer, final pathology results are pending - Staging workup is in progress; patient to have MRI of the brain today with outpatient follow-up for right upper lobe mass biopsy 2. Probable postobstructive pneumonitis; continue with current dose of IV Zosyn 3. History of mild asthma; not in exacerbation; Symbicort 1604.5 MCG 2 puffs twice a day 4. Chronic persistent depression; Celexa 20 mg daily 5. History of gastroesophageal reflux disease; Protonix 40 mg daily 6. Hypothyroidism; levothyroxin 112 MCG daily 7. Hypertension; metoprolol 50 mg daily; oral Cardizem was added 8. Chronic tobacco use and nicotine addiction; counseling done 9. Recurrence of A. fib with RVR this morning, patient had a run of A. fib with RVR a few days back, had converted to sinus rhythm; cardiology is on board but improved heart rate control; patient is currently on metoprolol, Cardizem and Tambocor DVT prophylaxis; SCDs CODE STATUS; full code
--- NOTE | 2020-04-16 18:01 | US ---
EXAMINATION TYPE: US carotid duplex BILAT DATE OF EXAM: 04/16/2020 COMPARISON: NONE CLINICAL HISTORY: Possible CVA. EXAM MEASUREMENTS: RIGHT: Peak Systolic Velocity (PSV) cm/sec ----- Right CCA: 47.0 ----- Right ICA: 72.3 ----- Right ECA: 73.2 ICA/CCA ratio: 1.5 RIGHT: End Diastole cm/sec ----- Right CCA: 15.6 ----- Right ICA: 29.6 ----- Right ECA: 11.3 LEFT: Peak Systolic Velocity (PSV) cm/sec ----- Left CCA: 51.4 ----- Left ICA: 81.4 ----- Left ECA: 95.6 ICA/CCA ratio: 1.6 LEFT: End Diastole cm/sec ----- Left CCA: 18.2 ----- Left ICA: 36.1 ----- Left ECA: 12.8 VERTEBRALS (direction of flow): Right Vertebral: Antegrade Left Vertebral: Antegrade Rhythm: Normal No significant stenosis seen. No elevated velocities. Mild bilateral plaque. IMPRESSION: There is antegrade flow in the vertebral arteries. The images and measurements suggest less than 15% stenosis in both internal carotid arteries. Criteria for Assigning % of Stenosis / Diameter reduction (Estimation based on the indirect measurements of the internal carotid artery velocities (ICA PSV). 1. Normal (no stenosis)=ICA PSV < 125 cm/s: ratio < 2.0: ICA EDV<40 cm/s. 2. Less than 50% stenosis=ICA PSV < 125 cm/s: ratio < 2.0: ICA EDV<40 cm/s. 3. 50 to 69% stenosis=ICA PSV of 125 to 230 cm/s: ration 2.0 ? 4.0: ICA EDV 40-100 cm/s. 4. Greater than 70% stenosis to near occlusion= ICA PSV > 230 cm/s: ratio > 4.0: ICA EDV > 100 cm/s. 5. Near occlusion= ICA PSV velocities may be low or undetectable: variable ratio and ICA EDV. 6. Total occlusion=unable to detect flow.
--- NOTE | 2020-04-16 20:32 | P.PN ---
Subjective Progress Note Date: 04/16/20 Principal diagnosis: Atrial fibrillation HISTORY OF PRESENT ILLNESS: Patient seen and examined. Patient in and out of atrial fibrillation still. She was placed on flecainide 50 mg every 12 hours as well as Toprol 50 mg daily yesterday. When she was in atrial fibrillation her heart rates were predominantly controlled in the 80s. She denies any symptoms from this. She did have a MRI performed which showed a small focus of abnormal signal in the brainstem however unclear what this was per the radiologist. Not clearly a prior stroke. She also had carotid ultrasound performed today which showed no significant stenosis. PHYSICAL EXAM: VITAL SIGNS: Reviewed. GENERAL: Well-developed in no acute distress. HEENT: Head is normocephalic. Pupils are equal, round. Sclerae anicteric. Mucous membranes of the mouth are moist. Neck supple. No JVD or thyromegaly LUNGS: Respirations even and unlabored. Lungs essentially clear to auscultation bilaterally. HEART: Regular rate and rhythm. S1 and S2 heard. EXTREMITIES: Normal range of motion. No clubbing or cyanosis. Peripheral pulses intact. No lower extremity edema ASSESSMENT: 1. New-onset atrial fibrillation, paroxysmal with RVR 2. Lung mass with adenopathy, suspicious for malignancy, status post bronchoscopy with biopsy 3. Nicotine dependence, patient reports smoking 3 cigarettes a day 4. Pericardial effusion, small to moderate on most recent echo suspicious for malignancy related. No evidence of tamponade PLAN: -Heart rate seems to be much better controlled on Toprol 50 mg daily. Continue flecainide for rhythm control. -Patient does not require anticoagulation given low CHADSVASC. The findings on MRI are very nonspecific and not conclusive of a prior stroke. Therefore I would still classify her as a CHADSVASC 0 and no anticoagulation is indicated. Carotid ultrasounds normal. -Repeat echo in 1 week for pericardial effusion follow up. -Await results of bronchoscopy -Repeat echo can be performed as an outpatient. Patient appears stable for discharge from cardiac standpoint. Objective - Vital Signs Vital signs: Vital Signs Temp 98.6 F 04/16/20 20:00 Pulse 86 04/16/20 20:00 Resp 18 04/16/20 20:00 BP 154/96 04/16/20 20:00 Pulse Ox 94 L 04/16/20 20:00 Intake & Output 04/16/20 04/16/2020 06:59 18:59 06:59 Intake Total 237 Balance 237 Weight 57.9 kg Intake: Oral 237 Other: Voiding Method Toilet Toilet Toilet # Voids 1 1 - Labs CBC & Chem 7: 04/15/20 10:13 04/16/20 06:01 Labs: Abnormal Lab Results - Last 24 Hours (Table) 04/16/20 Range/Units 06:01 BUN 3 L (7-17) mg/dL Creatinine 0.45 L (0.52-1.04) mg/dL Glucose 100 H (74-99) mg/dL Total Protein 5.7 L (6.3-8.2) g/dL Albumin 3.0 L (3.5-5.0) g/dL Microbiology - Last 24 Hours (Table) 04/09/20 16:05 Blood Culture - Final Blood No Growth after 144 hours
[2020-04-17] MEDS: LEVOTHYROXINE 112 MCG TAB PO SCH (06:10)
[2020-04-17] MEDS: PANTOPRAZOLE 40 MG TABLET PO SCH (06:10)
[2020-04-17] MEDS: METOPROLOL SUCCINATE (ER) 50 MG TAB.ER.24H PO SCH (08:41)
[2020-04-17] MEDS: CITALOPRAM HYDROBROMIDE 20 MG TAB PO SCH (08:41)
[2020-04-17] MEDS: FLECAINIDE 50 MG TAB PO SCH (08:41)
[2020-04-17] MEDS: PIPERACILLIN-TAZOBACTAM 3.375 GM in SODIUM CHLORIDE 0.9% 100 ML IVPB SCH (08:41)
[2020-04-17] MEDS: SYMBICORT 160-4.5 MCG INHALER INHALATION SCH (08:41)
[2020-04-17 08:49] VITALS: RESP 16
[2020-04-17 11:33] VITALS: BP 144/82; PULSE 78; TEMP 98.6
[2020-04-17] MEDS: ACETAMINOPHEN TAB 325 MG TAB PO PRN (11:39)
[2020-04-17] MEDS: LACTATED RINGERS 1,000 ML IV SCH (12:51)
--- NOTE | 2020-04-17 12:51 | PN ---
PROGRESS NOTE PULMONARY/CRITICAL CARE PROGRESS NOTE: DATE OF SERVICE: 04/17/2020 INTERVAL HISTORY: This is a 60-year-old female initially evaluated for right-sided lung mass. She has significant mediastinal and subcarinal adenopathy. We took her to the bronchoscopy suite last and did multiple biopsies including transbronchial needle aspiration/Hardwick needle biopsies and endobronchial and transbronchial biopsies as well as brushes and washes. We were told by Dr. Denton at the time when he was in the room evaluating the sampling, that we did have materials sufficient for a diagnosis. He did not say lung cancer, although we suspect that is likely the diagnosis. We should have something more early this week. 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 Currently, she seems to be resting comfortably. She is on a little bit of oxygen. Not receiving any IV fluids. From our perspective, the patient is very stable. She does need an outpatient PET scan. She has been seen by Oncology. PHYSICAL EXAMINATION: VITAL SIGNS: Current vital signs are reviewed. Temperature 98, heart rate 82, respiratory rate 16, blood pressure 160/92, mean 114, room air saturation 94%. Appears in no acute distress. HEENT: Examination is grossly unremarkable. Nasal O2 in place. NECK: Supple. Full range of motion. No adenopathy. Neck veins are flat. CARDIOVASCULAR: Examination reveals regular rhythm and rate. Heart rate 82. S1, S2 normal. LUNGS: Reveal diminished breath sounds on the right. A few scattered rhonchi. No wheezes or crackles. Breath sounds clear on the left. ABDOMEN: Soft. Bowel sounds are heard. EXTREMITIES: Intact. No cyanosis, clubbing, or edema. SKIN: Without rash. NEUROLOGIC: Examination is brief but nonfocal. CURRENT LAB DATA: Reviewed. Nothing new to report. Microbiology is negative. IMAGING: No additional radiographic studies of note. MEDICATIONS: Reviewed. ASSESSMENT: 1. Right-sided lung mass, with significant mediastinal and subcarinal adenopathy, consistent with likely lung cancer and/or lymphoma, status post bronchoscopy with multiple biopsies and a preliminary path report positive for cancer. 2. Postobstructive pneumonia. 3. Chronic obstructive pulmonary disease. 4. Mild asthma. 5. History of gastroesophageal reflux disease. 6. Hypothyroidism. 7. Probable anorexia/cachexia syndrome of malignancy with a 17 pounds weight loss. 8. Chronic tobacco use and nicotine addiction. 9. History of brief episode of atrial fibrillation with rapid ventricular response, resolved. 10.Chronic active tobacco use and nicotine addiction. PLAN: Currently, awaiting the final pathology report. We were told by the pathologist who was in the room at the time of the procedure that we had sufficient material to make a diagnosis. Additional recommendations and suggestions are forthcoming. She has been seen by Medical Oncology. She will need an outpatient PET scan and full PFTs. Additional recommendations and suggestions are forthcoming. Prognosis is guarded. MMODL / IJN: [id number] /
--- NOTE | 2020-04-21 11:17 | CDI ---
Documentation Clarification Form Date: 04/21/20 From: Dari Morejon Phone: If you have a question about this query, please contact Nelda Newton, Server Engineer at [phone] between 8am and 5pm. Admit Date: 04/09/20 Discharge Date:04/17/20 Patient Name: KARRI GONZALEZ Visit Number: [id number] ATTENTION: The Clinical Documentation Specialists (CDI) and [facility] Coding Staff appreciate your assistance in clarifying documentation. Please respond to the clarification below the line at the bottom and electronically sign. The CDI & [facility] Coding staff will review the response and follow-up if needed. Please note: Queries are made part of the Legal Health Record. If you have any questions, please contact the author of this message via ITS. Dear Dr. Pete Mckeon, The final diagnosis of the pathology report states: Primary small cell carcinoma of the lung with extensive crush artifact. Documentation states: Rule out lung cancer Patient history/risk factors: pneumonia, hyponatremia, mild PCM, cachexia, pericardial effusion, COPD in acute exacerbation, pleural effusion, HTN, hypothyroidism, depression Clinical Indicators: Right-sided lung mass with significant mediastinal and subcarinal adenopathy, consistent with either lung cancer or lymphoma Treatment: Bronchoscopy, brushes, washes, endobronchial biopsies, transbronchial biopsies, and transbronchial needle aspirations of the right upper distal right mainstem. In your professional opinion, do you agree with the pathology report specifying the right main bronchial mass as primary small cell carcinoma of the lung? Yes No Other (please specify) Unable to determine Per pathology report, right main bronchial mass is primary small cell carcinoma of the lung MTDD
--- NOTE | 2020-04-25 15:33 | P.DS ---
Providers Date of admission: 04/09/20 15:23 Expected date of discharge: 04/17/20 Attending physician: Pepe Jain Consults: 04/09/20 15:30 Consult Physician Stat Consulting Provider: Alden Moore Consult Reason/Comments: hilar mass, pleural effusion, upcoming galbladder surgery Do you want consulting provider notified?: Yes Consult Physician Stat Consulting Provider: Didi Taylor Consult Reason/Comments: hilar mass, pleural effusion Do you want consulting provider notified?: Yes 04/12/20 07:38 Consult Physician Stat Consulting Provider: Richar Reddy Consult Reason/Comments: new afib RVR Do you want consulting provider notified?: Already Contacted 04/14/20 17:22 Consult Physician Routine Consulting Provider: Daljit Onofre Consult Reason/Comments: lung biopsy- cancer Do you want consulting provider notified?: Yes 04/16/20 16:47 Consult Physician Routine Consulting Provider: Gaby Cordero Consult Reason/Comments: Subacute CVA Do you want consulting provider notified?: Yes Primary care physician: Malgorzata [facility] Course: 60-year-old female who was admitted on 04/09/2020 when she came into the emergency department for evaluation of severe right upper quadrant abdominal pain radiating to her back, and hypoxemia. Her evaluation with a CT of the chest, abdomen and pelvis revealed evidence of a large hilar mass and a right- sided pleural effusion suspicious for underlying lung cancer. Patient had a normal computed tomography scan of the lungs back in May 2019. We sent the patient consultation, and we were planning to do a bronchoscopy with the biopsy today, however yesterday patient went into the A. fib RVR requiring transfer to [facility] care telemetry monitoring, and cardiology evaluation. We canceled the procedure. Patient had converted back to sinus rhythm, cardiology evaluated the patient, it was determined that no anticoagulation was needed, echocardiogram was obtained showing mild LVH, EF between 50-55%, trace mitral regurgitation, mild tricuspid regurg, no evidence of pulmonary hypertension, small to moderate generalized pericardial effusion. Patient was also undergoing surgical evaluation for possibility of a stone or gallbladder wall polyp, however no surgical revision was recommended for possibility of gallstone. Today wishing the patient in follow-up, she is awake and alert, no acute distress, she is res ting comfortably in bed, she remained in sinus rhythm, no recurrence of A. fib RVR, her vital signs are stable. She is on 2 L of oxygen a pulse ox of 96%, no fever or chills, today's labs have been reviewed. Normal white count of 6.7, hemoglobin of 9.8, electrolytes are within normal limits, BUN of 2 and creatinine 0.52, TSH of 0.603 On 04/14/2020 patient seen in follow-up on selective care unit, she is resting comfortably in bed, in no acute distress, vital signs have a stable overnight. Remains pulse ox 97%, no cough but the chest pain or hemoptysis, she has been nothing by mouth after midnight for bronchoscopy this afternoon biopsies with Dr. Shafer On 04/15/2020 patient seen in follow-up on selective care unit, yesterday she underwent bronchoscopy with biopsies of the right upper lobe mass, and preliminary pathology was diagnostic for lung cancer, final path is pending. Room air pulse ox is 93%, she appears to be in no acute distress, no wheezing, no cough or congestion, no chest pain, she is afebrile, however she went back into A. fib RVR and currently rate is 130 to 140 BPM. Cardiology is following, and adjusting the patient's anticoagulation and rate control medications. Today's labs have been reviewed, white blood cell count is 10.3, hemoglobin is 10.4, sodium is 133, rest of electrolytes are within normal limits, B1 is for creatinine 0.52. 04/16/2020 Patient is seen and evaluated ambulating in the room; denies any complaint of chest pain or shortness of breath; vital signs remained stable Labs are reviewed with a white blood count of 7.3, hemoglobin 10.4 and hematocrit of 33.1, platelet count of 3 56,000 MRI of the brain was done and reviewed and shows small focus of abnormal signal in brain stem with slight enhancement; unusual site for metastatic disease; possible subacute lacunar infarct We will continue current management till final pathology result is available; pulmonary has cleared patient for discharge with need for outpatient PET scan and full PFT; medical and radiation oncology on board; we will order bilateral carotid Doppler and consult neurology for further stroke workup workup was unremarkable and patient was cleared for dc with out patient follow up Patient Condition at Discharge: Stable Plan - Discharge Summary Discharge Rx Participant: No New Discharge Prescriptions: New Flecainide [Tambocor] 50 mg PO Q12HR #60 tab Metoprolol Succinate (ER) [Toprol XL] 50 mg PO DAILY #30 tab.er.24h Continue Levothyroxine Sodium [Synthroid] 112 mcg PO DAILY Citalopram Hydrobromide [Citalopram HBr] 20 mg PO DAILY Albuterol Sulfate [Albuterol Sulfate Hfa] 2 puff PO RT-QID PRN PRN Reason: Shortness Of Breath Pantoprazole Sodium [Protonix] 40 mg PO BID #30 tablet. Ondansetron Odt [Zofran ODT] 4 mg PO Q8HR PRN #30 tab PRN Reason: Nausea And Vomiting Umeclidinium Brm/Vilanterol Tr [Anoro Ellipta 62.5-25 Mcg INH] 1 puff INHALATION RT-DAILY PRN PRN Reason: Shortness Of Breath Discharge Medication List Citalopram Hydrobromide [Citalopram HBr] 20 mg PO DAILY 07/01/14 [History] Levothyroxine Sodium [Synthroid] 112 mcg PO DAILY 07/01/14 [History] Albuterol Sulfate [Albuterol Sulfate Hfa] 2 puff PO RT-QID PRN 03/10/20 [History] Ondansetron Odt [Zofran ODT] 4 mg PO Q8HR PRN #30 tab 04/01/20 [Rx] Pantoprazole Sodium [Protonix] 40 mg PO BID #30 tablet. 04/01/20 [Rx] Umeclidinium Brm/Vilanterol Tr [Anoro Ellipta 62.5-25 Mcg INH] 1 puff INHALATION RT-DAILY PRN 04/09/20 [History] Flecainide [Tambocor] 50 mg PO Q12HR #60 tab 04/17/20 [Rx] Metoprolol Succinate (ER) [Toprol XL] 50 mg PO DAILY #30 tab.er.24h 04/17/20 [Rx] Follow up Appointment(s)/Referral(s): Hammad Knox DO [STAFF PHYSICIAN] - 1 Week Malgorzata Mcmahan DO [Primary Care Provider] - 1-2 days Cesar Shafer DO [Doctor of Osteopathic Medicine] - 1 Week Patient Instructions/Handouts: A-fib (Atrial Fibrillation) (GEN) Discharge Disposition: HOME SELF-CARE Plan of Treatment: Echocardiogram to be done on 04/20/2020 if patient has been discharged
== END 2020-04-17 16:15 | disposition home or self-care (01) | DRG 166 ==
LOC: EC 10:23 → 4SSUR 15:23 → 3SCARD 04-12 08:32
PROVIDERS: ADMIT Hospitalist; ATTEND Hospitalist
PROC: 0BBF8ZX Excision of Right Lower Lung Lobe, Via Natural or Artificial Opening Endoscopic, Diagnostic (ICD-10-PCS; principal; 2020-04-14 12:00)
PROC: 0BD38ZX Extraction of Right Main Bronchus, Via Natural or Artificial Opening Endoscopic, Diagnostic (ICD-10-PCS; principal; 2020-04-14 12:00)
PROC: 0BBD8ZX Excision of Right Middle Lung Lobe, Via Natural or Artificial Opening Endoscopic, Diagnostic (ICD-10-PCS; principal; 2020-04-14 12:00)
PROC: 0BBC8ZX Excision of Right Upper Lung Lobe, Via Natural or Artificial Opening Endoscopic, Diagnostic (ICD-10-PCS; principal; 2020-04-14 12:00)
DX: C34.01 Malignant neoplasm of right main bronchus (principal); J18.9 Pneumonia, unspecified organism; I63.81 Other cerebral infarction due to occlusion or stenosis of small artery; E87.1 Hypo-osmolality and hyponatremia; E44.1 Mild protein-calorie malnutrition; R64 Cachexia; I31.3 Pericardial effusion (noninflammatory); J44.0 Chronic obstructive pulmonary disease with (acute) lower respiratory infection; J90 Pleural effusion, not elsewhere classified; J98.11 Atelectasis; Z68.1 Body mass index [BMI] 19.9 or less, adult; I48.0 Paroxysmal atrial fibrillation; I11.9 Hypertensive heart disease without heart failure; R59.0 Localized enlarged lymph nodes; R40.2364 Coma scale, best motor response, obeys commands, 24 hours or more after hospital admission; R40.2144 Coma scale, eyes open, spontaneous, 24 hours or more after hospital admission; R40.2254 Coma scale, best verbal response, oriented, 24 hours or more after hospital admission; F32.9 Major depressive disorder, single episode, unspecified; E03.9 Hypothyroidism, unspecified; I07.1 Rheumatic tricuspid insufficiency; K82.9 Disease of gallbladder, unspecified; K21.9 Gastro-esophageal reflux disease without esophagitis; R09.02 Hypoxemia; F17.210 Nicotine dependence, cigarettes, uncomplicated; Z71.6 Tobacco abuse counseling; Z79.890 Hormone replacement therapy; Z79.899 Other long term (current) drug therapy; Z90.89 Acquired absence of other organs; Z98.890 Other specified postprocedural states; Z87.09 Personal history of other diseases of the respiratory system; Z98.42 Cataract extraction status, left eye; Z98.41 Cataract extraction status, right eye; Z96.1 Presence of intraocular lens; Z71.3 Dietary counseling and surveillance; Z88.1 Allergy status to other antibiotic agents; Z88.5 Allergy status to narcotic agent; Z80.9 Family history of malignant neoplasm, unspecified
CPT/HCPCS: 31623; 31624; 31625; 31633; 36415; 70553; 71045; 71275; 74177; 76604; 78306; 80048; 80053; 81001; 82150; 82607; 82728; 82746; 83540; 83550; 83605; 83615; 83690; 83735; 84443; 85025; 85045; 85379; 85610; 85730; 87040; 87324; 88104; 88108; 88173; 88305; 88341; 88342; 93005; 93306; 93880; 94640; 94760; 96361; 96374; 96375; 99285

== ENCOUNTER → 2020-04-22 | Outpatient (CLI) | payer BC ==
--- NOTE | 2020-04-25 08:45 | PE ---
Nuclear medicine PET/CT HISTORY: Lung carcinoma, C 34.81, initial Patient received 10.3 mCi F-18 FDG intravenously in delayed scanning was performed from skull base to the mid thighs. Localization and attenuation correction CT scan was performed. Correlation to prior CT scans dated 04/09/2020 Chest and neck: There has been interval increase in the right pleural effusion. The large area of abn ormal soft tissue involving the superior mediastinum, retrocaval pretracheal nodes and right hilar re gion, right paratracheal nodes, supraclavicular nodes on the right, subcarinal region shows hypermeta bolic uptake. There is atelectatic lung on the right, probable postobstructive collapse or atelectasi s. Left lung is clear. ABDOMEN: There is no evident liver mass or adrenal mass. No retroperitoneal adenopathy. The multilocu lar adnexal lesion within the pelvis shows associated hypermetabolic uptake within the pelvis, lesion measures [id number] 6 cm in greatest AP dimension by 6.2 cm in transverse dimension. There is s ome minimal free fluid suspected in the pelvis. Liver may be enlarged. Osseous structures show no suspicious hypermetabolic uptake. 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
== END | disposition home or self-care (01) ==
LOC: RADPETMAIN 08:17
PROVIDERS: ATTEND Family Medicine
DX: C34.81 Malignant neoplasm of overlapping sites of right bronchus and lung (principal)
CPT/HCPCS: 78815; A9552

== ENCOUNTER → 2020-05-18 | Outpatient (CLI) | payer BC ==
--- NOTE | 2020-05-18 22:06 | MR ---
EXAMINATION TYPE: MR brain wo/w con DATE OF EXAM: 05/18/2020 COMPARISON: 04/15/2020 HISTORY: Hx of lung Ca, Vision changes CONTRAST: Performed utilizing 5 mL intravenous Gadavist gadolinium contrast. TECHNIQUE: Multiplanar, multiecho imaging on a 3.0 Kaylynn magnet is performed through the brain. Stud y is performed within 24 hours of arrival to the hospital. The craniovertebral junction is normal. The pituitary is normal. Diffusion-weighted imaging is performed. Small focus of hyperintensities on the diffusion-weighted i maging within the brainstem. This is slightly diminished over the interval. The brainstem area has a punctate area of hyperintensity on postcontrast T1-weighted images. This are a measures 0.8 x 0.5 cm on the T2-weighted sequences has a somewhat ringlike appearance on the FLAIR images. Small metastatic lesion should be considered Ventricles and sulci are appropriate for the patient age. IMPRESSIONS: 1. Hyperintense area within the brainstem may be slightly smaller but has interval enhancement. Findi ngs could be related to a metastatic lesion. Differential diagnosis does include subacute ischemic ch leif.
== END | disposition home or self-care (01) ==
LOC: RADMRIMAIN 15:45
PROVIDERS: ATTEND Internal Medicine Hematology & Oncology
DX: C34.91 Malignant neoplasm of unspecified part of right bronchus or lung (principal); H53.9 Unspecified visual disturbance
CPT/HCPCS: 70553; A9585

== ENCOUNTER → 2020-06-10 | Outpatient (CLI) | payer BC ==
[2020-06-10 11:34] LABS: African American GFR (CKD) >90 (>60 ml/min/1.73 sqM); Blood Urea Nitrogen 12 mg/dL (7-17); Non-African American GFR(CKD) >90 (>60 ml/min/1.73 sqM)
--- NOTE | 2020-06-10 18:56 | CT ---
EXAMINATION TYPE: CT ChestAbdPelvis w con DATE OF EXAM: 06/10/2020 COMPARISON: PET/CT 04/22/2020 HISTORY: Follow up lung cancer. CT DLP: 448.1 mGycm Automated exposure control for dose reduction was used. CONTRAST: CT scan of the chest, abdomen and pelvis is performed with Oral Contrast and with IV Contrast, patien t injected with 100 mL of Isovue 300. FINDINGS: CHEST: There is significant interval decrease in size of the abnormal soft tissue involving the superior med iastinum. Significant interval decrease in the pretracheal, paratracheal, and subcarinal soft tissue. Right hilar nodes measure up to 9 and 6 mm (4:31). Left hilar lymph node measures up to 5 mm (4:27). The mass effect and leftward shift of the heart and mediastinum is resolved on current exam. The con solidative opacities demonstrated on 04/22/[address] comparison throughout the right hemithorax are resolved. There is redemonstrated large right pleural effusion with loculated components, which is mi ldly decreased versus 04/22/2020. There is right lower lobe atelectasis. There is thickened right pleu ra. Heart size normal. No pericardial effusion. No thoracic aortic aneurysm. No axillary lymphadenopathy. ABDOMEN PELVIS: LIVER: Redemonstrated too small to characterize hypodense lesions of the liver. No new liver lesions. BILIARY SYSTEM: Normal. PANCREAS: Normal. SPLEEN: Normal. ADRENALS: Normal. KIDNEYS: Normal. BOWEL: No obstruction or thickening. PERITONEUM: No pneumoperitoneum. No free fluid. LYMPH NODES: No lymphadenopathy. PELVIS: Normal urinary bladder. Normal uterus and right adnexa. Within the left pelvis there is signi ficant interval decrease in size of the complex multiloculated lesion, with 3.2 x 4.2 cm hypodense ma ss remaining (3:109), previously spanning an area of approximately 6.0 x 6.3 cm on 04/09/2020 CT terrance rison. The pelvic free fluid is resolved. VASCULATURE: No abdominal aortic aneurysm. MUSCULOSKELETAL: No aggressive osseous destructive lesions. IMPRESSION: Versus 04/22/[address] comparison: 1. Significant interval decrease in size of the mediastinal and superior mediastinal soft tissue mass . Mass effect and leftward shift of the heart and mediastinum is resolved on current exam. Resolution of the consolidative opacity of the right lung. Decrease in size of the persistent right large pleur al effusion. 2. Subcentimeter bilateral hilar lymph nodes are decreased in size. 3. Significant interval decrease in size of the left pelvic mass and resolution of the pelvic free fl uid.
== END | disposition home or self-care (01) ==
LOC: RADCTMAIN 10:56
PROVIDERS: ATTEND Internal Medicine Hematology & Oncology
DX: C34.91 Malignant neoplasm of unspecified part of right bronchus or lung (principal); J90 Pleural effusion, not elsewhere classified; R19.00 Intra-abdominal and pelvic swelling, mass and lump, unspecified site; Z88.1 Allergy status to other antibiotic agents; Z88.5 Allergy status to narcotic agent
CPT/HCPCS: 82565; 84520; 71260; 74177; 36415; Q9967

== ENCOUNTER → 2020-07-19 | Outpatient (CLI) | payer BC ==
[2020-07-19 12:07] LABS: African American GFR (CKD) >90 (>60 ml/min/1.73 sqM); Blood Urea Nitrogen 18 mg/dL (7-17); Non-African American GFR(CKD) >90 (>60 ml/min/1.73 sqM)
--- NOTE | 2020-07-19 14:57 | CT ---
EXAMINATION TYPE: CT ChestAbdPelvis w con DATE OF EXAM: 07/19/2020 COMPARISON: 06/10/2020 HISTORY: small cell lung CA CT DLP: 480.3 mGycm CONTRAST: CT scan of the chest, abdomen and pelvis is performed with Oral Contrast and with IV Contrast, patien t injected with 100 mL of Isovue 300. CT Chest: LUNGS: Lobulated and Loculated pleural collections right upper lobe persists although are much smalle r in size with components measuring 3 cm versus 3.6 cm previously as well as 5 cm versus 6.8 cm. Reso lution of right-sided pleural effusion. Persistent nodule within the right upper lobe image 32 measur es 5 mm versus 7 mm previously. No new nodules or masses identified. MEDIASTINUM: Thoracic aorta is of normal caliber. The heart is not enlarged. Continued diminution i n precarinal adenopathy currently measuring 1 cm in short axis versus 1.4 cm. Subcentimeter subcarina l lymph node. HILAR STRUCTURES: No evidence for mass. No hilar adenopathy is appreciated. OTHER: No significant abnormality. CONTRAST CT ABDOMEN AND PELVIS FINDINGS: LIVER/GB: No calcified gallstones. No space occupying hepatic lesion. Biliary tree is of normal ca liber. PANCREAS: No inflammation. No distinct mass. SPLEEN: No splenic enlargement. No lesion seen. ADRENALS: No nodule. No thickening. KIDNEYS/BLADDER: No hydronephrosis. No nephrolithiasis. No disctinct renal mass. BOWEL: Normal appendix. Normal bowel caliber. No inflammation. GENITAL ORGANS: Left ovarian cystic lesion persists although is smaller in size and measures 3.1 cm v ersus 4.3 cm maximal dimension. Uterus and right ovary are unremarkable. LYMPH NODES: No greater than 1cm abdominal or pelvic lymph nodes are appreciated. AORTA: No significant abnormality. OSSEOUS STRUCTURES: No significant abnormality is seen. OTHER: No significant additional abnormality is seen. IMPRESSION: 1. Lobulated and Loculated pleural collections right upper lobe persists although are much smaller in size . Resolution right-sided pleural effusion. 2. Continued diminution in the pretracheal adenopathy. 3. Persistent right upper lobe pulmonary nodule is slightly smaller in size. 4. Persistent left ovarian/adnexal cyst is slightly smaller in size.
== END | disposition home or self-care (01) ==
LOC: RADCTMAIN 11:20
PROVIDERS: ATTEND Internal Medicine Hematology & Oncology
DX: J90 Pleural effusion, not elsewhere classified (principal); R59.9 Enlarged lymph nodes, unspecified; C34.91 Malignant neoplasm of unspecified part of right bronchus or lung; Z88.5 Allergy status to narcotic agent; Z88.1 Allergy status to other antibiotic agents
CPT/HCPCS: 82565; 84520; 71260; 74177; 36415; Q9967 ×2

== ENCOUNTER → 2020-10-24 | Outpatient (CLI) | payer BC ==
--- NOTE | 2020-10-24 13:47 | CT ---
EXAMINATION TYPE: CT ChestAbdPelvis w con DATE OF EXAM: 10/24/2020 COMPARISON: Most recent CT July 19, 2020 and older CTs HISTORY: Lung cancer. CT DLP: 551.6 mGycm. Automated Exposure Control for Dose Reduction was Utilized. CONTRAST: CT scan of the thorax, abdomen and pelvis is performed with oral and with IV Contrast, patient inject ed with 100 mL of Isovue M300. FINDINGS: LUNGS: Continued improved lobulated and loculated pleural fluid collections in the right upper lung e xtending posteriorly and centrally. No recurrent dependent significant right-sided pleural effusion. Stable trace right-sided effusion. Stable 6 x 4 mm nodule in the anterior right midlung adnexa measur es 33 corresponds to minor fissure on sagittal images presumed benign intrapulmonary lymph node. No s uspicious hypermetabolic uptake on PET. No new greater than 5 mm nodules or masses. MEDIASTINUM: There is persistent enlarged pericarinal lymph node measuring 2.0 x 1.1 cm axial image 2 3. No recurrent or enlarging thoracic lymph nodes clearly seen with marked improvement from older juan dies. Some residual abnormal soft tissue or irregular lymph nodes in the anterosuperior mediastinum. Reference posterior to the right brachiocephalic artery axial image 15 is unchanged from most recent CT. No cardiomegaly or pericardial effusion is seen. Thyroid not well seen and may be atrophic or hy poplastic. LIVER/GB: No significant abnormality is appreciated. PANCREAS: No significant abnormality is seen. SPLEEN: No significant abnormality is seen. ADRENALS: No significant abnormality is seen. KIDNEYS: No significant abnormality is seen. BOWEL: Oral contrast reaches the rectum. No suspicious bowel dilatation. GENITAL ORGANS: Somewhat retroflexed uterus. Few scattered bilateral pelvic phleboliths. Ovoid 2.4 x 1.9 cm hypodense lesion left pelvis axial image 112 is diminished in size from most recent study and older studies. LYMPH NODES: No greater than 1cm abdominal or pelvic lymph nodes are appreciated. OSSEOUS STRUCTURES: Slight scoliotic curvature. OTHER: No significant additional abnormality is seen. IMPRESSION: Continued improving right upper lung loculated and lobulated pleural fluid collection. St able tiny dependent right pleural effusion. Stable persistent borderline paracarinal adenopathy. Stab le abnormal soft tissue throughout the mediastinum. Marked interval improvement in significant abnorm al adenopathy from older CTs. Continued diminishing size left ovarian/adnexal lesion. No new or enlar ging mass or adenopathy noted. Findings consistent with continued positive treatment response.
== END ==
LOC: RADCTMAIN 10:12
PROVIDERS: ATTEND Internal Medicine Hematology & Oncology
DX: C34.11 Malignant neoplasm of upper lobe, right bronchus or lung (principal); J90 Pleural effusion, not elsewhere classified; R59.0 Localized enlarged lymph nodes
CPT/HCPCS: 71260; 74177; Q9967 ×2

== ENCOUNTER → 2021-02-07 | Outpatient (CLI) | payer BC ==
--- NOTE | 2021-02-07 13:03 | BD ---
EXAMINATION TYPE: Axial Bone Density DATE OF EXAM: 02/07/2021 COMPARISON: 08.15.2015 CLINICAL HISTORY: 61 YR OLD FEMALE.....ICD-10 CODE: Z78.0 MENOPAUSAL STATE Height: 65.5 Weight: 144 FRAX RISK QUESTIONS: Family History (Parent hip fracture): NO FX History of Fracture in Adulthood: YES Current Tobacco Use: QUIT APRIL 09, 2020 RISK FACTORS HISTORY OF: HX OF RT SIDE RIB FX, AT AGE 54 Family History of Osteoporosis: YES, MOTHER WITH LUMBAR FXs Postmenopausal woman: YES, AT AGE 53 Hyperparathyroidism: NO Adrenal Insufficiency: NO MEDICATIONS: Thyroid Medications: YES, SYNTHROID FOR ABOUT 20+ YRS Additional Medications: CHEMO. FOR LUNG CA, CITALOPRAM, REFLUX MEDS, MULTIVITAMIN, TECENTRIQ IMMUNOTH ERAPY, Additional History: SMALL CELL LUNG CA, HX OF CHEMO, REFLUX, EXAM MEASUREMENTS: Bone mineral densitometry was performed using the Q-go System. Bone mineral density as measured about the Lumbar spine is: ----- L1-L4(G/cm2): 1.120 T Score Values are as follows: ----- L1: 0.1 ----- L2: -1.1 ----- L3: -0.3 ----- L4: -0.8 ----- L1-L4: -0.5 Bone mineral density has: Decreased -1.9% since study of: 08.15.2015 Bone mineral density about the R hip (g/cm2): 0.761 Bone mineral density about the L hip (g/cm2): 0.761 T Score values are as follows: -----R Neck: -1.7 -----L Neck: -1.5 -----R Total: -2.0 -----L Total: -2.0 Bone mineral density has: Decreased -10.9% since study of: 08.15.2015 FRAX%s: THERE IS A 14.0% CHANCE FOR A MAJOR OSTEOPOROTIC FX AND A 1.5% FOR HIP.....PROBABILITY FOR FX IN 10 YRS TIME IMPRESSION: Osteopenia. Decreased bone mineral density since the prior exam. NOTE: T-SCORE=SD OF THE YOUNG ADULT MEAN.
--- NOTE | 2021-02-09 09:25 | MM ---
Reason for exam: screening (asymptomatic). Last mammogram was performed 2 years and 1 month ago. History: Patient is postmenopausal, history of other cancer, and is nulliparous. Benign right breast aspiration of the right breast, March 19, 2012. Benign right US cyst aspiration ea add of the right breast, September 10, 2006. Benign right US cyst aspiration of the right breast, September 10, 2006. Benign cyst aspiration of the right breast, 2001. Took hormonal contraceptives for 10 years. Physical Findings: A clinical breast exam by your physician is recommended on an annual basis and results should be correlated with mammographic findings. MG Screening Mammo w CAD Bilateral CC and MLO view(s) were taken. Prior study comparison: December 26, 2018, left breast MG work up mamm w CAD LT. December 18, 2018, bilateral MG screening mammo w CAD. The breast tissue is heterogeneously dense. This may lower the sensitivity of mammography. Previous mammotome biopsy in the right breast. ASSESSMENT: Benign, BI-RAD 2 RECOMMENDATION: Routine screening mammogram of both breasts in 1 year.
== END | disposition home or self-care (01) ==
LOC: RADMAMWWP 10:05
PROVIDERS: ATTEND Family Medicine
DX: Z12.31 Encounter for screening mammogram for malignant neoplasm of breast (principal); Z13.820 Encounter for screening for osteoporosis; M85.89 Other specified disorders of bone density and structure, multiple sites; Z78.0 Asymptomatic menopausal state
CPT/HCPCS: 77067; 77080

== ENCOUNTER → 2021-02-15 | Outpatient (CLI) | payer BC ==
[2021-02-15 11:35] LABS: African American GFR (CKD) >90 (>60 ml/min/1.73 sqM); Blood Urea Nitrogen 16 mg/dL (7-17); Non-African American GFR(CKD) 83 (>60 ml/min/1.73 sqM)
--- NOTE | 2021-02-15 21:48 | CT ---
EXAMINATION TYPE: CT ChestAbdPelvis w con DATE OF EXAM: 02/15/2021 INDICATION: Lung CA COMPARISON: 10/24/2020 CT DLP: 620.3 mGycm CONTRAST: Performed with Oral Contrast and with IV Contrast, patient injected with 100 mL of Isovue 300. TECHNIQUE: Axial images at 5 mm thick sections. Reconstructed images in the coronal plane. Delayed images through the kidneys. FINDINGS: CT CHEST: Portion of the thyroid visualized is normal. There is some pleural thickening along the posterior lateral right apex, present previously likely re lated to scarring. There is a 0.8 cm nodule within the anterior lateral right midlung. This has increased in size from 0 .6 cm. Additional workup with PET CT is recommended. No enlarged mediastinal or hilar adenopathy is evident. The ascending aorta diameter at the level of the main pulmonary artery is 0.4 cm. The main pulmonary artery diameter at the bifurcation is 2.[address] ABDOMEN: Liver: Normal Spleen: Normal Pancreas: Normal Adrenal glands: The adrenal glands are normal. Gallbladder: Normal Kidneys: No masses are evident. No hydronephrosis is present. No cysts are present. Delayed images were obtained through the kidneys, which remain unremarkable. Aorta: Vascular calcification is within the aorta. Inferior vena cava: Normal. CT PELVIS: Loops of bowel within the abdomen and pelvis are normal. There are loops of bowel which are incom pletely distended or lack oral contrast limiting their evaluation. Appendix: Not visualized. No dilated tubular structure inflammatory changes evident. Urinary bladder: Normal. Genitourinary structures: Uterus is normal. Adnexal regions are unremarkable. Osseous structures: No suspicious lytic lesions. There is a small sclerotic area along the medial asp ect of the right iliac wing, series 3 image 91 may be a small sclerotic metastasis. This is stable fr om comparison There is a cortical defect within the lateral left rib, series 3 image 66. Correlate fo r pain. A fracture is not excluded. IMPRESSIONS: 1. Enlarging right middle lobe nodule could be a reactive lymph node. Metastasis is not excluded. Con packing inspector reevaluation with PET/CT. 2. Possible sclerotic metastasis versus bone island right medial iliac wing
== END | disposition home or self-care (01) ==
LOC: RADCTMAIN 10:57
PROVIDERS: ATTEND Internal Medicine Hematology & Oncology
DX: C34.2 Malignant neoplasm of middle lobe, bronchus or lung (principal)
CPT/HCPCS: 82565; 84520; 71260; 74177; 36415; Q9967

== ENCOUNTER → 2021-06-14 | Outpatient (CLI) | payer OTHER ==
[2021-06-14 11:37] LABS: African American GFR (CKD) >90 (>60 ml/min/1.73 sqM); Blood Urea Nitrogen 15 mg/dL (7-17); Non-African American GFR(CKD) 83 (>60 ml/min/1.73 sqM)
--- NOTE | 2021-06-14 13:13 | CT ---
EXAMINATION TYPE: CT ChestAbdPelvis w con DATE OF EXAM: 06/14/2021 COMPARISON: 02/15/2021 HISTORY: follow up lung cancer CT DLP: 630.9 mGycm CONTRAST: CT scan of the chest, abdomen and pelvis is performed with Oral Contrast and with IV Contrast, patien t injected with 100 mL of Isovue 300. CT Chest: LUNGS: Postoperative pleural parenchymal thickening is noted right upper lobe. The overall appearance is slightly improved relative to the prior study. There is persistent pulmonary nodule within the ri ght middle lobe measuring 7 mm versus 8 mm previously. No additional nodules are seen. No evidence fo r infiltrate. No pulmonary mass identified. MEDIASTINUM: Thoracic aorta is of normal caliber. The heart is not enlarged. No evidence for media stinal mass or adenopathy. HILAR STRUCTURES: No evidence for mass. No hilar adenopathy is appreciated. OTHER: No significant abnormality. CONTRAST CT ABDOMEN AND PELVIS FINDINGS: LIVER/GB: No calcified gallstones. No space occupying hepatic lesion. Biliary tree is of normal ca liber. Mild hepatic steatosis. PANCREAS: No inflammation. No distinct mass. SPLEEN: No splenic enlargement. No lesion seen. ADRENALS: No nodule. No thickening. KIDNEYS/BLADDER: No hydronephrosis. No nephrolithiasis. No disctinct renal mass. BOWEL: Normal appendix. Normal bowel caliber. No inflammation. GENITAL ORGANS: No gross abnormality. LYMPH NODES: No greater than 1cm abdominal or pelvic lymph nodes are appreciated. AORTA: No significant abnormality. OSSEOUS STRUCTURES: Stable right iliac wing bone island. OTHER: No significant additional abnormality is seen. IMPRESSION: 1. Persistent but slightly improved postoperative pleural parenchymal thickening right upper lobe. 2. Persistent right middle lobe nodule slightly smaller in size.
== END | disposition home or self-care (01) ==
LOC: RADCTMAIN 10:50
PROVIDERS: ATTEND Internal Medicine Hematology & Oncology
DX: C34.90 Malignant neoplasm of unspecified part of unspecified bronchus or lung (principal); R91.1 Solitary pulmonary nodule
CPT/HCPCS: 82565; 84520; 71260; 74177; 36415; Q9967

== ENCOUNTER → 2022-01-25 | Outpatient (CLI) | payer OTHER ==
--- NOTE | 2022-01-25 13:00 | CT ---
EXAMINATION TYPE: CT ChestAbdPelvis w con DATE OF EXAM: 01/25/2022 COMPARISON: 09/12/2021 and 06/14/2021 HISTORY: 62-year-old female C34.91, Lung cancer TECHNIQUE: Contiguous axial scanning of the chest, abdomen, and pelvis performed with IV Contrast, pa tient injected with 70 mL of Isovue 300. Delayed images through the kidneys were obtained. Coronal/sa gittal reconstructions performed. CT DLP: 757.4 mGycm Automated exposure control for dose reduction was used. FINDINGS: CHEST: Heart normal size without pericardial effusion. Aorta normal caliber with conventional arch vessel branching anatomy. Enlarging precarinal lymph node at 2.1 cm versus 1.6 cm, previously. The nonenlarged 9 mm AP window lymph node previously measured 6 mm. Nonenlarged 7 and 6 mm bronchial lymph nodes at each hilum remain unchanged. Stable size but slight increase in bulk of the 8 mm right middle lobe nodule. Adjacent tiny 5 mm sate llite nodule is unchanged. Irregular nodular subpleural opacity periphery of the right upper and midlung remains unchanged. Nodu lar area measures up to 1.3 cm, unchanged. Likely site of previous treated disease. Background mild to moderate centrilobular emphysema. No consolidation or pleural effusion. ABDOMEN: Small hiatal hernia. No focal liver lesion or biliary ductal dilatation. Portal venous system is patent. Gallbladder, adrenal glands, left kidney, spleen, and pancreas within normal limits. Unchanged extrarenal pelvis right kidney. Mild atherosclerotic calcifications infrarenal abdominal aorta and common iliac arteries. Normal vari ation separate takeoffs of the splenic artery directly from the aorta. No dilated small bowel, free fluid, or free air. No mesenteric or retroperitoneal lymphadenopathy. Oral contrast progressed to the rectum. No significant stool burden. Normal appendix. PELVIS: Bladder is urine distended. Pelvic phleboliths. Uterus is retroflexed. Both ovaries are visualized. N o abnormal fluid collection in the pelvis or pelvic lymphadenopathy. BONES: Mild degenerative change of the hips. Facet arthropathy mid lumbar spine with grade 1 retrolisthesis L3-L4 along with mild degenerative disc disease here. No osseous destructive process. IMPRESSION: 1. IRREGULAR AND NODULAR PLEURAL PARENCHYMAL OPACITY PERIPHERY OF THE RIGHT UPPER TO MIDLUNG IS UNCHA NGED, LIKELY SITE OF TREATED DISEASE. 2. HOWEVER, THE PRECARINAL LYMPH NODE IS ENLARGING, CURRENTLY MEASURING 2.1 CM VERSUS 1.6 CM, PREVIOU SLY. EARLY DISEASE PROGRESSION NOT EXCLUDED. CLOSE FOLLOW-UP ADVISED. 3. WHILE THE 8 MM RIGHT MIDDLE LOBE PULMONARY NODULE IS SIMILAR IN SIZE, IT SHOWS INCREASING BULK. AG AIN, EARLY PROGRESSION NOT EXCLUDED; CLOSE FOLLOW-UP ADVISED. 4. COPD WITH MILD TO MODERATE EMPHYSEMA. SMALL HIATAL HERNIA.
== END | disposition home or self-care (01) ==
LOC: RADCTMAIN 09:39
PROVIDERS: ATTEND Internal Medicine Hematology & Oncology
DX: C34.91 Malignant neoplasm of unspecified part of right bronchus or lung (principal); J43.2 Centrilobular emphysema; K44.9 Diaphragmatic hernia without obstruction or gangrene; R91.8 Other nonspecific abnormal finding of lung field
CPT/HCPCS: 82565; 84520; 71260; 74177; 36415; Q9967 ×2

== ENCOUNTER → 2022-03-02 | Outpatient (CLI) | payer OTHER ==
--- NOTE | 2022-03-05 07:01 | PE ---
EXAMINATION TYPE: PET CT fusion skull to thigh DATE OF EXAM: 03/02/2022 COMPARISON: Most recent CT January 25, 2022 and older studies. Prior PET/CT April 22, 2020 HISTORY: Right-sided Lung cancer progress study. Originally diagnosed in 2020 currently undergoing immunotherapy TECHNIQUE: Following the intravenous administration of 12.05 mCi of F-18 FDG, whole body images are performed from the skull base to the midthigh. Images are reviewed on the computer in the coronal, a xial, and sagittal planes. Reconstructed rotating images are created on independent workstation and reviewed on the computer. A localization and attenuation correction CT is performed in conjunction with the PET scan. Blood glucose level equals 109 SCAN: Subsequent Scan FINDINGS: SKULL BASE AND NECK: No new areas of abnormal hypermetabolic uptake. CHEST, MEDIASTINUM, AND HILAR REGION: There is abnormal hypermetabolic paraCarinal mass or lymph node measuring 2.3 x 1.6 cm axial image 79, max SUV is 9.73. This is signif icantly improved from prior PET/CT in 2019. This is however concerning giving increased prominence on last several CTs. No new areas of abnormal hypermetabolic uptake. ABDOMEN AND PELVIS: No new areas of abnormal hypermetabolic uptake. Normal excretion. No adrenal mass es. OSSEOUS STRUCTURES: No new areas of abnormal hypermetabolic uptake. OTHER CT: Thyroid gland not well seen and may be surgically absent or atrophic. IMPRESSION: Abnormal hypermetabolic uptake in the enlarging paracarinal mass or lymph node is suggest ing negative treatment response to ongoing immunotherapy.
== END | disposition home or self-care (01) ==
LOC: RADPETMAIN 12:53
PROVIDERS: ATTEND Internal Medicine Hematology & Oncology
DX: R90.89 Other abnormal findings on diagnostic imaging of central nervous system (principal); C34.91 Malignant neoplasm of unspecified part of right bronchus or lung
CPT/HCPCS: 78815; A9552

== ENCOUNTER → 2022-06-21 | Outpatient (CLI) | payer OTHER ==
[2022-06-21 10:37] LABS: Potassium 4.1 mmol/L (3.5-5.1)
[2022-06-21 10:38] LABS: ALT 23 U/L (4-34); AST 26 U/L (14-36); African American GFR (CKD) 86 (>60 ml/min/1.73 sqM); Albumin 4.1 g/dL (3.5-5.0); Albumin/Globulin Ratio 1.4; Alkaline Phosphatase 77 U/L (38-126); Anion Gap 14 mmol/L; Blood Urea Nitrogen 20 mg/dL (7-17); Calcium 9.1 mg/dL (8.4-10.2); Carbon Dioxide 21 mmol/L (22-30); Chloride 106 mmol/L (98-107); Glucose 83 mg/dL (74-99); Non-African American GFR(CKD) 75 (>60 ml/min/1.73 sqM); Sodium 141 mmol/L (137-145); Total Bilirubin 0.4 mg/dL (0.2-1.3); Total Protein 7.1 g/dL (6.3-8.2)
--- NOTE | 2022-06-21 11:41 | CT ---
EXAMINATION TYPE: CT chest w con CT DLP: 245.5 mGycm, Automated exposure control for dose reduction was used. DATE OF EXAM: 06/21/2022 11:01 AM COMPARISON: PET/CT 03/02/2022. CT chest abdomen pelvis 01/25/2022. CLINICAL INDICATION:Female, 62 years old with history of C34.2 C77.1, follow up to lung CA TECHNIQUE: Multiple axial images were obtained through the chest. Sagittal and coronal reformats were created for review. Contrast used:70 mL of Isovue 300 with IV Contrast, none. Oral contrast used: none. FINDINGS: LUNGS/ PLEURA: Streaky atelectasis/scarring within the right upper lobe with similar morphology to th e posttreatment changes when comparing to prior PET 03/02/2022. No new or enlarging pulmonary nodule id entified. Left major fissure intrafissural lymph node. No suspicious nodules within the left lungs. N o focal consolidation, pneumothorax or pleural effusion. AIRWAY: Patent and unremarkable. HEART: Lipomatous hypertrophy of interatrial septum. No evidence of pulmonary embolism. MEDIASTINUM: Interval decreased size of right low paratracheal lymph node seen on prior PET/CT there remains some ill-defined soft tissue attenuation in this location. No new mediastinal lymphadenopathy identified. VASCULATURE: No aortic aneurysm. MUSCULOSKELETAL: No acute osseous abnormalities, mild multilevel disc degeneration changes of the spi ne. No suspicious osseous lesions identified. SOFT TISSUES/LYMPH NODES: Unremarkable. LOWER NECK: No significant findings. UPPER ABDOMEN: No evidence of lymphadenopathy or suspicious finding in the upper abdomen. IMPRESSION: Positive response to therapy with decrease in right low paratracheal lymph node which was enlarged on prior PET/CT on 03/02/2022.. Additionally, the right upper lobe post treatment changes are similar in morphology. No new or enlarging pulmonary nodules. Continued attention on follow-up PET/CT is recomme nded.
== END | disposition home or self-care (01) ==
LOC: RADCTMAIN 10:22
PROVIDERS: ATTEND Radiology Radiation Oncology
DX: C34.2 Malignant neoplasm of middle lobe, bronchus or lung (principal)
CPT/HCPCS: 80053; 71260; Q9967

== ENCOUNTER → 2022-08-23 | Outpatient (CLI) | payer OTHER ==
--- NOTE | 2022-08-24 07:44 | MM ---
Reason for Exam: Screening (asymptomatic). Last mammogram was performed 1 year(s) and 6 month(s) ago. Patient History: Menarche at age 14. Patient has no children. Postmenopausal. Hormonal Contraceptives for 10 years until age 31. 2001, Benign Cyst Aspiration on the right side. 03/19/2012, Benign Cyst Aspiration on the right side. 09/10/2006, Benign Cyst Aspiration on the right side. 09/10/2006, Benign Cyst Aspiration on the right side. Risk Values: Kelsy 5 year model risk: 1.6%. NCI Lifetime model risk: 8.1%. Prior Study Comparison: 12/18/2018 Bilateral Screening Mammogram, [facility]. 12/26/2018 Left Diagnostic Mammogram, [facility]. 02/07/2021 Bilateral Screening Mammogram, [facility]. Tissue Density: The breast tissue is heterogeneously dense. This may lower the sensitivity of mammography. Findings: Analyzed By CAD. There is no suspicious group of microcalcifications or new suspicious mass in either breast. Biopsy clip within the right breast. Chronic nodularity bilaterally. No significant change from prior exams. Overall Assessment: Benign, BI-RAD 2 Management: Screening Mammogram of both breasts in 1 year. A clinical breast exam by your physician is recommended on an annual basis and results should be correlated with mammographic findings. Electronically signed and approved by: Francisco J Rollins D.O.
== END | disposition home or self-care (01) ==
LOC: RADMAMWWP 09:31
PROVIDERS: ATTEND Family Medicine
DX: Z12.31 Encounter for screening mammogram for malignant neoplasm of breast (principal); Z78.0 Asymptomatic menopausal state; Z98.890 Other specified postprocedural states
CPT/HCPCS: 77067

== ENCOUNTER → 2022-09-14 | Outpatient (CLI) | payer OTHER ==
--- NOTE | 2022-09-17 11:16 | PE ---
EXAMINATION TYPE: PET CT fusion skull to thigh DATE OF EXAM: 09/14/2022 CLINICAL INDICATION:Female, 62 years old with history of C34.91 Lung Cancer; TECHNIQUE: Following the intravenous administration of 10.74 mCi of F-18 FDG, whole body images are performed from the skull base to the midthigh. Images are reviewed on the computer in the coronal, axial, and sagittal planes. Reconstructed rotating images are created on independent workstation and reviewed on the computer. A non-contrast CT is performed in conjunction with the PET scan. Glucose level 98 mg/dL COMPARISON: CT 06/21/2022, PET/CT 03/02/2022, FINDINGS: Mediastinal SUV mean is 1.7. Hepatic parenchyma SUV mean is 2.26. SKULL BASE AND NECK: No suspicious radiotracer activity. CHEST, MEDIASTINUM, AND HILAR REGION: Suspected posttreatment changes with mild right perihilar FDG activity max SUV 3.5 which is in some i ll-defined soft tissue in this region which is suboptimally visualized without IV contrast and is new from 06/21/2022. Right lung interstitial prominence thickening with with max SUV 2.3. ABDOMEN AND PELVIS: No suspicious radiotracer activity. OSSEOUS STRUCTURES: No suspicious radiotracer activity. OTHER CT: Atherosclerosis of the arterial vasculature. Mild multilevel disc degeneration changes. Few scattered clonic diverticula. IMPRESSION: Suspected posttreatment changes of the right lung which have increased compared to 06/21/2022. There is mild ill-defined increased FDG activity along the right perihilar region and right upper lung inte rstitial parenchyma. Low-level activity is favored to be post treatment inflammation in the appropria te clinical setting. Consider short-term follow-up CT to ensure stability of the perihilar region is recommended.
== END | disposition home or self-care (01) ==
LOC: RADPETMAIN 10:36
PROVIDERS: ATTEND Internal Medicine Hematology & Oncology
DX: C34.81 Malignant neoplasm of overlapping sites of right bronchus and lung (principal); J84.9 Interstitial pulmonary disease, unspecified
CPT/HCPCS: 78815; A9552

== ENCOUNTER → 2023-01-11 | Outpatient (CLI) | payer OTHER ==
--- NOTE | 2023-01-12 10:44 | PE ---
EXAMINATION TYPE: PET CT fusion skull to thigh DATE OF EXAM: 01/11/2023 CLINICAL INDICATION:Female, 62 years old with history of C34.91 C34.81; TECHNIQUE: Following the intravenous administration of 13.0 mCi of F-18 FDG, whole body images are performed from the skull base to the midthigh. Images are reviewed on the computer in the coronal, a xial, and sagittal planes. Reconstructed rotating images are created on independent workstation and reviewed on the computer. A non-contrast CT is performed in conjunction with the PET scan. Glucose level 106 mg/dL COMPARISON: CT 12/01/2022, PET/CT None, FINDINGS: Mediastinal SUV mean is 1.0. Hepatic parenchyma SUV mean is 2.0. SKULL BASE AND NECK: No suspicious radiotracer activity. CHEST, MEDIASTINUM, AND HILAR REGION: No suspicious radiotracer activity. No abnormal FDG activity wi thin the mediastinum. Soft tissue around the airways does not demonstrate increased metabolic activit y. There is calcification along the left diaphragm likely relating to prior asbestos exposure. ABDOMEN AND PELVIS: No suspicious radiotracer activity. Gastric wall thickening frontal FDG activity max SUV 6.2 OSSEOUS STRUCTURES: No suspicious radiotracer activity. OTHER CT: Atherosclerosis of the carotid bifurcations. Coronary artery calcifications. The heart is m ildly enlarged for size. Appendix is normal. Scattered calcified granulomas in the mesentery is scatt ered colonic diverticula. IMPRESSION: 1. No suspicious radiotracer activity. No abnormal lymphadenopathy within the mediastinum. 2. Mild FDG activity within the gastric [place] correlate for gastritis.
--- NOTE | 2023-01-12 13:01 | PE ---
EXAMINATION TYPE: PET CT fusion skull to thigh DATE OF EXAM: 01/11/2023 CLINICAL INDICATION:Female, 62 years old with history of C34.91 C34.81; TECHNIQUE: Following the intravenous administration of 13 mCi of F-18 FDG, whole body images are pe rformed from the skull base to the midthigh. Images are reviewed on the computer in the coronal, axi al, and sagittal planes. Reconstructed rotating images are created on independent workstation and re viewed on the computer. A non-contrast CT is performed in conjunction with the PET scan. Glucose le pepito 97 mg/dL COMPARISON: CT 06/21/2022, PET/CT 09/14/2022, FINDINGS: Mediastinal SUV mean is 1.8. Hepatic parenchyma SUV mean is 1.9. SKULL BASE AND NECK: No suspicious radiotracer activity. CHEST, MEDIASTINUM, AND HILAR REGION: Posttreatment changes with interval decrease in right perihilar FDG activity max SUV 1.7, previously 3.5. Right lung interstitial prominence thickening with max SUV 1.2, previously 2.3. Subcarinal lymph node max SUV 2.4 previously not definitively visualized. Nodular changes to the anterior right middle lobe without increased FDG activity Max SUV 0.4. ABDOMEN AND PELVIS: No suspicious radiotracer activity. OSSEOUS STRUCTURES: Mild FDG activity along the rib 8 costochondral junction which could be second yamil to underlying fracture felt to be visualized. OTHER CT: Atherosclerosis of the arterial vasculature. Mild multilevel disc degeneration changes. Few scattered clonic diverticula. IMPRESSION: 1. Indeterminate subcarinal lymph node on today's exam with mild increased FDG activity. Otherwise, posterior changes within the right lung which are stable from 09/14/2022 and increased from 06/21/2022 . Interval decrease in FDG activity along the right perihilar region and right upper lung interstitia l parenchyma. 2. Mild FDG activity along the left rib 8 costochondral junction which could be secondary to underly ing fracture felt to be visualized. Correlate for recent history of trauma.
== END | disposition home or self-care (01) ==
LOC: RADPETMAIN 15:29
PROVIDERS: ATTEND Internal Medicine Hematology & Oncology
DX: C34.81 Malignant neoplasm of overlapping sites of right bronchus and lung (principal); C34.91 Malignant neoplasm of unspecified part of right bronchus or lung
CPT/HCPCS: 78815; A9552

== ENCOUNTER → 2023-07-11 | Outpatient (CLI) | payer BC ==
--- NOTE | 2023-07-14 12:45 | PE ---
EXAMINATION TYPE: PET CT fusion skull to thigh DATE OF EXAM: 07/11/2023 COMPARISON: No recent pertinent CT Prior PET/CT: 01/11/2023 HISTORY: Lung cancer TECHNIQUE: Following the intravenous administration of 9.2 mCi of F-18 FDG, whole body images are pe rformed from the skull base to the midthigh. Images are reviewed on the computer in the coronal, axi al, and sagittal planes. Reconstructed rotating images are created on independent workstation and re viewed on the computer. A localization and attenuation correction CT is performed in conjunction wi th the PET scan. DLP: 3-4.37 mGycm SCAN: Subsequent Blood glucose: 94 mg/dL Average Mediastinum SUV: 2.26 Average Liver SUV: 2.79 FINDINGS: NECK: No abnormal uptake THORAX: Focal uptake is in the subcarinal region, image 82, SUV 8.57. The area of pleural thickening along the posterior lateral right lung has intermediate uptake measuri ng 1.98 SUV, image 68. ABDOMEN: No abnormal uptake PELVIS: No abnormal uptake OSSEOUS STRUCTURES: No abnormal uptake LOCALIZATION CT: Minimal thickening left adrenal gland is present without abnormal uptake, SUV 1.68.. However, this may be a change from 01/11/2023 with apparent thickening over the interval COMPARISON: Uptake within the subcarinal region has increased from an SUV of 2.12. IMPRESSION: 1. Abnormal uptake within the subcarinal region, increasing from comparison study. 2. Remaining areas appear without increasing uptake. Some intermediate areas of uptake include the po sterior lateral right upper lung field pleural based density in left adrenal gland. Close monitoring is recommended.
== END | disposition home or self-care (01) ==
LOC: RADPETMAIN 12:18
PROVIDERS: ATTEND Internal Medicine Hematology & Oncology
DX: C34.81 Malignant neoplasm of overlapping sites of right bronchus and lung (principal); R93.2 Abnormal findings on diagnostic imaging of liver and biliary tract
CPT/HCPCS: 78815; A9552

== ENCOUNTER → 2023-10-03 | Outpatient (CLI) | payer BC ==
--- NOTE | 2023-10-06 15:10 | PE ---
EXAMINATION TYPE: PET CT fusion skull to thigh DATE OF EXAM: 10/03/2023 COMPARISON: No recent pertinent CT Prior PET/CT: 07/11/2023 HISTORY: Chest pain TECHNIQUE: Following the intravenous administration of 12.6 mCi of F-18 FDG, whole body images are p erformed from the skull base to the midthigh. Images are reviewed on the computer in the coronal, ax ial, and sagittal planes. Reconstructed rotating images are created on independent workstation and r eviewed on the computer. A localization and attenuation correction CT is performed in conjunction w ith the PET scan. DLP: 334.3 mGycm SCAN: Subsequent Blood glucose: 94 mg/dL Average Mediastinum SUV: 2.01 Average Liver SUV: 2.98 FINDINGS: NECK: There is uptake within the posterior tongue above the hypopharynx. Consider direct visualizati on. This appears symmetrical may be related to motion during the exam. THORAX: Small amount of uptake is within the area of thickening of the posterior lateral right upper lung field. Image 65, SUV 1.9. New areas of uptake are within the right hilar region. This includes the following There is a small f ocus of radiotracer accumulation within the superior right hilum. Image 70, SUV 4.03 suspicious for m etastatic lesion. An additional punctate lymph node is in the right hilum, image 73, SUV 3.15. There is new marked uptake within the right perihilar region, image 77, SUV 12.69. There is a metastatic lesion within the subcarinal lymph node, image 81, SUV 13.57. Previous SUV 12.2 6 ABDOMEN: No abnormal uptake PELVIS: No abnormal uptake OSSEOUS STRUCTURES: No abnormal uptake LOCALIZATION CT: Nodules and lymph nodes correspond to the areas of uptake within the chest. COMPARISON: Uptake within the posterior tongue is increased over the interval. Uptake within the soft tissue thickening along the posterior lateral right upper lung field is similar. IMPRESSION: 1. New areas of uptake within the right perihilar and hilum and mediastinum suspicious for metastatic disease. 2. Slightly increased SUV of a subcarinal metastatic node. 3. Increasing posterior tongue uptake. Direct visualization recommended.
== END | disposition home or self-care (01) ==
LOC: RADPETMAIN 07:58
PROVIDERS: ATTEND Internal Medicine Hematology & Oncology
DX: C34.81 Malignant neoplasm of overlapping sites of right bronchus and lung (principal); R07.9 Chest pain, unspecified
CPT/HCPCS: 78815; A9552

== ENCOUNTER → 2023-11-18 | Outpatient (CLI) | payer BC ==
--- NOTE | 2023-11-18 23:28 | MR ---
EXAMINATION TYPE: MR brain wo/w con DATE OF EXAM: 11/18/2023 COMPARISON: Prior MRI brain May 18, 2020. Most recent PET/CT October 03, 2023. HISTORY: Lung cancer reoccurrence, Abn PET TECHNIQUE: Multiplanar, multisequence images of the brain and brainstem is performed without and with IV contras t, utilizing 7.5 mL intravenous Gadavist . FINDINGS: Diffusion weighted images demonstrate no evidence of a recent infarct or other diffusion ab normality. There is no extra-axial fluid collection. A few punctate scattered T2 hyperintense are re demonstrated and stable. The ventricular system and cisternal spaces are normal in size and appearan ce. The brain volume is age appropriate. Midline structures demonstrate normal morphology. The craniocervical junction appears within normal limits. Post contrast images demonstrate no suspicious enhancing masses on current study. Prior punc gary enhancement in the brainstem is now not clearly identified. The dural venous sinuses appear candelario nt. Bilateral aphakia is redemonstrated. The paranasal sinuses are grossly clear. IMPRESSION: No abnormal enhancing masses to suggest metastatic disease to the brain.
== END | disposition home or self-care (01) ==
LOC: RADMRIMAIN 21:45
PROVIDERS: ATTEND Internal Medicine Hematology & Oncology
DX: C34.91 Malignant neoplasm of unspecified part of right bronchus or lung (principal); R93.89 Abnormal findings on diagnostic imaging of other specified body structures
CPT/HCPCS: 70553; A9585

== ENCOUNTER 2023-12-12 10:34 | Day surgery (SDC) | payer BC ==
[2023-12-11 09:50] VITALS: BMI 23.5
[~2023-12-12 10:34] MED LIST changes: +HYDROmorphone 0.5 MG/0.5 ML SYRINGE IVP PRN; +LACTATED RINGERS 1,000 ML IV SCH; -LIDOCAINE 1% (10MG/ML) FOR IV START INTRADERMA PRN
--- NOTE | 2023-12-12 12:05 | CT ---
EXAMINATION TYPE: CT chest wo con DATE OF EXAM: 12/12/2023 COMPARISON: 10/03/2023 PETCT HISTORY: Ion Bronchoscopy CT DLP: 424 mGycm, Automated exposure control for dose reduction was used. CONTRAST: Performed injected with 0 mL of Isovue 300. TECHNIQUE: Axial images were obtained at 1 mm thick sections. Reconstructed images are reviewed on [employer] computer in the coronal plane. FINDINGS: Some posterior lateral infiltrate right apex. Some stranding is adjacent. This measures 1.2 cm. A 0.8 cm nodule with uptake on the PET scan in the right middle lobe is evident. Series 4 image 121 No enlarged mediastinal or hilar adenopathy is evident. The ascending aorta diameter at the level o f the main pulmonary artery is 3.5 cm. The main pulmonary artery diameter at the bifurcation is 2.[address] sections are obtained through the upper abdomen. Abdomen is essentially unremarkable. IMPRESSION: 1. CT for endoscopy guidance. 2. Right middle lobe nodule. 3. Pleural thickening and stranding posterior lateral right upper lung field.
[2023-12-12] MEDS: LACTATED RINGERS 1,000 ML IV SCH (12:17)
[2023-12-12] MEDS: DEXAMETHASONE SOD PHOSPHATE 4 MG/ML 1 ML VIAL IV ONE (12:20)
[2023-12-12] MEDS: ONDANSETRON 4 MG/2 ML VIAL IVP ONE (12:20)
[2023-12-12 12:25] LABS: Glucose,Whole Blood 104 mg/dL (70-110)
[2023-12-12] MEDS ORDERED: PROPOFOL 10 MG/ML 20 ML VIAL IV ONE (12:27)
[2023-12-12] MEDS ORDERED: SUCCINYLCHOLINE CHLORIDE 200 MG/10 ML VIAL IV ONE (12:27)
[2023-12-12] MEDS ORDERED: PHENYLEPHRINE 10 MG/ML VIAL ONE (12:27)
[2023-12-12] MEDS ORDERED: fentaNYL (PF) 50 MCG/ML 2 ML AMP ONE (12:27)
[2023-12-12] MEDS ORDERED: LIDOCAINE 1% INJ 10MG/ML (20 ML MDV) ONE (12:27)
[2023-12-12] MEDS ORDERED: MIDAZOLAM 2 MG/2 ML VIAL ONE (12:27)
--- NOTE | 2023-12-12 13:45 | P.PCN ---
Date of Procedure: 12/12/23 Operative Findings: Operative Findings: Preoperative Diagnosis: Right upper lobe pulmonary nodule, measuring 8 mm (previous hx of small cell lung cancer) Medistinal adenopathy Postoperative Diagnosis: same Procedure(s) Performed: Flexible bronchoscopy Robotic-assisted bronchoscopy and addition to radial ultrasound evaluation of the right upper lobe nodule Robotic-assisted transbronchial needle aspirate, transbronchial biopsies of the right upper lobe nodule nodule in addition to a bronchioloalveolar lavage EBUS EBUS guided transbronchial needle aspirate biopsy of station 7 lymph nodes. Anesthesia: GETA Surgeon: Kevon Kc Estimated Blood Loss (ml): 0 Pathology: other Condition: stable Disposition: same day Operative Findings: A physical exam was performed. Informed consent was obtained from the patient after explaining all the risks (pneumothorax, life threatening bleeding, infection and adverse effects due to medications), benefits and alternatives to the procedure which the patient appeared to understand and so stated. The patient was connected to the monitoring devices. General anesthesia was induced and the patient was intubated by anesthesia. A final timeout was performed and the procedure confirmed by the attending staff bronchoscopist. The bronchoscope was inserted and the airway examined. The flexible bronchoscope was removed and the robotic bronchoscope was inserted. Registration was completed. I next guided the robotic bronchoscope using the navigation system into the right upper lobe anterior segment. Once in proper position, the bronchoscope was frozen. The radial EBUS probe was placed through the bronchoscope and confirmed abnormal u/s images vs normal lung. A needle was placed through the working channel and under fluoroscopic guidance, we sampled the area thought to have the mass twice. We then used a cloud biopsy pattern with ultrasound confirmation for 2 additional passes with the needle. U/S evaluation was then used to reconfirm location. Forceps were next introduced through working channel and extended the appropriate distance and 3 transbronchial biopsies were performed using fluoroscopic guidance. The u/s probe was then reinserted to confirm location. When confirmed this process was repeated for a total of 8-10 transbronchial biopsies. After reassessment with EBUS, a brush was placed through the extendable working channel for 1 pass with fluoroscopic guidance. U/S evaluation was then used to confirm location. 40ml of saline was then instilled into the area of the lesion. 10cc was aspiratred. The aspirate was non bloody. The robotic bronchoscope was removed and the airway inspected no evidence of any ongoing endobronchial bleeding. Following that, the robotic bronchoscope was removed and endobronchial ultrasou nd was inserted. Careful examination of the mediastinal stations was done and the patient was found to have 10x5mm station 7 lymph node. Transbronchial needle aspirate of the mediastinal stations was done using a 22-gauge with a sharp needle. A total of 3 passes were obtained from each station. The endobronchial ultrasound was removed. Flex. bronchoscope was inserted and regular suctioning was done. At the completion of the procedure, no residual secretions or bloody material within the airway. The bronchoscope was removed. The patient was extubated. FINDINGS: 1.The airways appeared normal 2 Successful navigation, ultrasonographic identification, and biopsies of right upper lobe nodule 3.The the radial ultrasound view was eccentric/concentric 4 mediastinal staging by endobronchial ultrasound RECOMMENDATIONS: Await pathology and cytology results The referring physician will be alerted to the results when available. The patient was advised to follow up with the referring physician with the biopsy results Patient will be called with results.
[2023-12-12 14:24] VITALS: TEMP 97
--- NOTE | 2023-12-12 14:25 | FL ---
Fluoroscopy INDICATION: Bronchoscopy FINDINGS: Fluoroscopy time: 1 minute 9 seconds. Total dose area product (DAP) in uGy*m?, mGy*cm? (or similar): 2.7252 Images obtained: 3. IMPRESSION: 1. Documentation of fluoroscopy.
--- NOTE | 2023-12-12 15:12 | XR ---
EXAMINATION TYPE: XR chest 1V DATE OF EXAM: 12/12/2023 COMPARISON: 04/09/2020 INDICATION: Post biopsy TECHNIQUE: Single frontal view of the chest is obtained. FINDINGS: The heart size is normal. The pulmonary vasculature is normal. The lungs are clear. No pneumothorax is evident post bronchoscopy. IMPRESSION: 1. No pneumothorax post bronchoscopy
[2023-12-12 15:13] VITALS: RESP 18
[2023-12-12 15:56] VITALS: BP 105/68; PULSE 75
== END 2023-12-12 15:45 | disposition home or self-care (01) ==
LOC: ORWHC2ENDO 10:34
PROVIDERS: ATTEND Internal Medicine Critical Care Medicine
DX: C34.11 Malignant neoplasm of upper lobe, right bronchus or lung (principal)
CPT/HCPCS: 31629; 31624; 88305; 88342; 88341; 87070; 87205; 87116; 87102; 87206; 71045; 71250; 31652; J2250; J0330; J1100; J2405; J2001; J3010; J2704; J2371; S2900

== ENCOUNTER → 2024-02-11 | Outpatient (CLI) | payer BC ==
--- NOTE | 2024-02-11 14:39 | MR ---
EXAMINATION TYPE: MR brain wo/w con DATE OF EXAM: 02/11/2024 COMPARISON: 11/18/2023 HISTORY: Lung cancer, migraines. CONTRAST: Performed utilizing 7 mL intravenous Gadavist gadolinium contrast. TECHNIQUE: Multiplanar, multiecho imaging on a 3.0 Kaylynn magnet is performed through the brain. Stud y is performed within 24 hours of arrival to the hospital. The craniovertebral junction is normal. The pituitary is normal. Optic chiasm as visualized is norm al. Diffusion-weighted imaging is performed. No abnormal hyperintensity is present to suggest an acute i ntracranial infarct or acute ischemic change. There are scattered punctate areas of hyperintensity on T2 and Inversion Recovery weighted sequences which are non-specific but can be related to microvascular ischemic changes. Ventricles and sulci are appropriate for the patient age. No suspicious enhancement is evident. IMPRESSION: 1. No suspicious enhancement to suggest metastatic cancer. 2. No acute intracranial process.
== END | disposition home or self-care (01) ==
LOC: RADMRIMAIN 12:57
PROVIDERS: ATTEND Internal Medicine Hematology & Oncology
DX: C34.91 Malignant neoplasm of unspecified part of right bronchus or lung (principal); G43.909 Migraine, unspecified, not intractable, without status migrainosus
CPT/HCPCS: 70553; A9585

== ENCOUNTER → 2024-03-06 | Outpatient (CLI) | payer BC ==
--- NOTE | 2024-03-08 16:18 | PE ---
EXAMINATION TYPE: PET CT fusion skull to thigh DATE OF EXAM: 03/06/2024 CLINICAL INDICATION:Female, 64 years old with history of R13.19 Other Dysphagia; TECHNIQUE: Following the intravenous administration of 13.2 mCi of F-18 FDG, whole body images are performed from the skull base to the midthigh. Images are reviewed on the computer in the coronal, a xial, and sagittal planes. Reconstructed rotating images are created on independent workstation and reviewed on the computer. A non-contrast CT is performed in conjunction with the PET scan. Glucose level 131 mg/dL CT DLP: 339 mGycm, Automated exposure control for dose reduction was used. COMPARISON: CT 12/12/2023, PET/CT 10/03/2023, MRI: None FINDINGS: Mediastinal SUV mean is 3.01. Hepatic parenchyma SUV mean is 2.32. SKULL BASE AND NECK: No suspicious radiotracer activity. CHEST, MEDIASTINUM, AND HILAR REGION: No suspicious radiotracer activity. * Suspected postsurgical changes right upper lobe with streaky atelectasis along the fissure with mi ld uptake max SUV 2.5. No right upper lobe pulmonary nodules identified. * Subcarinal lymph node no longer visualized, previously max SUV 14.6 now max SUV 2.8. ABDOMEN AND PELVIS: No suspicious radiotracer activity. MUSCULOSKELETAL STRUCTURES: No suspicious radiotracer activity. OTHER CT: Postsurgical changes of the right upper lung. Scattered colonic diverticula are minimal. La rge amount stool in the cecum. Arthrosis course of the arterial vasculature. The heart is mildly enla rged for size. IMPRESSION: Postsurgical changes with decrease of metabolic activity in the subcarinal lymph node seen on prior t o below background levels. Right upper lung suspected posttreatment change with streaky atelectasis m ild uptake likely postsurgical. No suspicious radiotracer uptake identified on today's exam. Attention on follow-up PET/CT.
== END | disposition home or self-care (01) ==
LOC: RADPETMAIN 11:40
PROVIDERS: ATTEND Internal Medicine Hematology & Oncology
DX: C34.81 Malignant neoplasm of overlapping sites of right bronchus and lung (principal); E03.9 Hypothyroidism, unspecified; I48.91 Unspecified atrial fibrillation
CPT/HCPCS: 78815; A9552

== ENCOUNTER → 2024-07-02 | Outpatient (CLI) | payer BC ==
--- NOTE | 2024-07-02 17:34 | PE ---
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 Images are reviewed on the computer in the coronal, axial, and sagittal planes. Reconstructed rotating images are created on independent workstation and reviewed on the computer. A non-contrast CT is performed in conjunction with the PET scan. Glucose level 93 mg/dL CT DLP: 373.22 mGycm, Automated exposure control for dose reduction was used. COMPARISON: CT 12/12/2023, 06/21/2022, 01/25/2022 PET/CT 03/06/2024, 10/03/2023, 07/11/2023, 01/11/2023, 08/27, 03/02/2022 MRI: 02/11/2024, 11/18/2023 FINDINGS: Mediastinal SUV mean is 2.3. Hepatic parenchyma SUV mean is 2.9. SKULL BASE AND NECK: New left supraclavicular 1.3 cm lymph node with FDG activity demonstrated. Demonstrates a max SUV of 26.8. Symmetric radiotracer uptake identified within the lingual tonsil. Correlate for infectious/inflammat ory process. CHEST, MEDIASTINUM, AND HILAR REGION: Development of right superior perihilar 0.9 cm nodule demonstrating FDG activity with a maximum SUV o f 15.4. Increased size of subcarinal 1.0 cm lymph node demonstrating FDG activity with a maximum SUV of 12.5, previously 2.8. ABDOMEN AND PELVIS: No suspicious radiotracer activity. MUSCULOSKELETAL STRUCTURES: No suspicious radiotracer activity. OTHER CT: Bilateral aphakia. Postsurgical changes of the right upper lung. Mild atherosclerotic calci fication of the aorta and its branches. Small hiatal hernia. Scattered colonic diverticula are minima l. IMPRESSION: Findings consistent recurrence/metastasis with new FDG avid right superior perihilar 0.9 cm nodule, i ntensely FDG avid left supraclavicular 1.3 cm lymph node, and increasing size of 1 cm FDG avid subcar inal lymph node. [facility], , 07/02/2024 5:32 PM
== END | disposition home or self-care (01) ==
LOC: RADPETMAIN 11:57
PROVIDERS: ATTEND Internal Medicine Hematology & Oncology
DX: C34.91 Malignant neoplasm of unspecified part of right bronchus or lung (principal); R93.7 Abnormal findings on diagnostic imaging of other parts of musculoskeletal system
CPT/HCPCS: 78815; A9552

== ENCOUNTER → 2024-11-05 | Outpatient (CLI) | payer BC ==
--- NOTE | 2024-11-05 14:41 | PE ---
EXAMINATION TYPE: PET CT fusion skull to thigh DATE OF EXAM: 11/05/2024 CLINICAL HISTORY: Lung cancer progress study TECHNIQUE: Following the intravenous administration of 11.1 mCi of F-18 FDG, whole body images are performed from the skull base to the midthigh. Images are reviewed on the computer in the coronal, a xial, and sagittal planes. Reconstructed rotating images are created on independent workstation and reviewed on the computer. A non-contrast CT is performed in conjunction with the PET scan. Blood gl ucose level equals 98. COMPARISON: Prior PET/CT July 02, 2024. FINDINGS: SKULL BASE AND NECK: There are now 3 hypermetabolic left-sided supraclavicular lymph nodes with larg est measuring 1.8 x 1.5 cm axial image 71 versus 1.3 x 1.1 cm on prior, max SUV is 29.67 currently ve rsus 26.8 on prior. CHEST, MEDIASTINUM, AND HILAR REGION: More prominent right 1.4 cm suprahilar uptake axial image 87, m ax SUV is 20.84 on current study versus 15.4 on prior. There is larger subcarinal lymph node now measuring 1.9 x 1.3 cm image 97 versus 1.2 x 1.0 cm on prio r, max SUV is 22.67 current study versus 12.5 on prior. No new areas of abnormal hypermetabolic uptake identified ABDOMEN AND PELVIS: Normal excretion is seen. No new areas of abnormal hypermetabolic uptake. Nonspec ific bowel uptake in the pelvis is redemonstrated. OSSEOUS STRUCTURES: No new abnormal hypermetabolic uptake. OTHER CT: Bilateral aphakia is present. Thyroid gland is atrophic or surgically absent. Correlate cli nically. Linear scarring right upper lung is redemonstrated. IMPRESSION: Negative treatment response with worsening metastatic lesions. There are however no new h ypermetabolic metastatic lesions seen. [facility], , 11/05/2024 2:39 PM
== END | disposition home or self-care (01) ==
LOC: RADPETMAIN 10:55
PROVIDERS: ATTEND Internal Medicine Hematology & Oncology
DX: C34.81 Malignant neoplasm of overlapping sites of right bronchus and lung (principal)
CPT/HCPCS: 78815; A9552